=== PATIENT | male | born 1945 | race Caucasian/White ===

== ENCOUNTER → 2024-04-07 14:22 | Outpatient (REF) | payer MEDICARE, OTHER, SELFPAY | LOC: RAD 14:22 | PROVIDERS: ATTENDING PHYSICIAN Student in an Organized Health Care Education/Training Program; FAMILY PHYSICIAN Family Medicine | DX: M25.511 Pain in right shoulder (principal) | CPT/HCPCS: 73030 ==

== ENCOUNTER 2024-05-28 00:29 | Emergency (ER) | payer MEDICARE, OTHER, SELFPAY ==
[2024-05-28 00:39] VITALS: BP 147/82
[2024-05-28 00:54] LABS: COVID-19 Antigen Positive (Negative)
--- NOTE | 2024-05-28 01:11 | ED.GENMED ---
History of Present Illness
General
Chief Complaint: Cough
Source: patient and family
Exam Limitations: none
Time Seen by Provider: 05/28/24 01:02
Nursing documentation reviewed up to this point in time: agreed with
History of Present Illness
History of Present Illness:
78-year-old male presents with dry cough. It has been present for the last 2 days. He was at a family reunion just prior to the symptoms starting. Patient does have a history of bronchitis and states that this feels similar. Denies fever,
chills, nausea or vomiting. Denies chest pain.
Past History
Past History
ED Past Medical History: CAD, GERD, HTN, Hypercholesterolemia, [place], Renal failure (Renal insufficiency) and Other (Lumbar disc disease with sciatica, kidney stone)
ED Past Surgical History: Cardiac (Coronary artery bypass graft 1995, PTCA with stents , 2000, 2004, 2005), Orthopedic (Left knee surgery, cervical fusion March 2018) and Other (Mastectomy)
Social History
Tobacco: Former smoker
Alcohol: Daily
Drug: None
Personal:
Living: with family
Employment: Retired
Family History
Family History: Hypertension and CAD
Review of Systems
Review of Systems
Allergies reviewed?: Yes
Other source history: family
All Other Systems: ROS reviewed and negative except as documented in HPI and ROS
Constitutional: Reports no symptoms
EENT: Reports no symptoms
Respiratory: Reports cough; Denies trouble breathing
Cardiac: Reports no symptoms
ABD/GI: Reports no symptoms
: Reports no symptoms
Musculoskeletal: Reports no symptoms
Skin: Reports no symptoms
Neurological: Reports no symptoms
Endocrine: Reports no symptoms
Hematologic/Lymphatic: Reports no symptoms
Psychiatric: Reports no symptoms
Phy Exam
General Physical Exam
General Presentation: well appearing and mild distress
General age: appears stated age
General Skin: warm and dry
General Habitus: elderly
General Mental: alert and anxious
Cardiovascular Exam
Cardiovascular Exam: regular rate/rhythm and no edema
Pulmonary Exam
Pulmonary Exam: lungs clear and no respiratory distress
Cough: coarse cough and non productive cough
Neurological Exam
Neurological Exam: alert and oriented x3
Musculoskeletal Exam
Musculoskeletal Exam: full ROM and neuro vasc intact
Skin Exam
Skin Exam: normal color and warm/dry
Psychiatric Exam
Psychiatric Exam: normal mood/affect and anxious
Course
Orders/Labs/Results
Orders:
Orders
05/28/24 00:44
COVID-19 Antigen Urgent
Source: Nasal Swab
Influenza A+B Rapid Molecular Urgent
SACHIN Source: Nasal Swab
Specimen Description:
05/28/24 01:13
Benzonatate [Tessalon Perles] 100 mg PO NOW STA
05/28/24 01:14
CR Chest - 2 Views Urgent
Comment: Must be masked
Reason For Exam: COVID + cough
05/28/24 01:15
Nirmatrelvir/Ritonavir [Paxlovid 2X150 mg-100 mg Dose Pack] 1 dose PO NOW STA
Abnormal Lab Results
05/28/24
00:44
SARS-CoV-2 Antigen Positive A
(Negative)
Vital Signs
Initial and Last Documented VS:
Initial Vital Signs
Temp Pulse Resp BP Pulse Ox
98.4 F 95 16 147/82 99
05/28/24 00:39 05/28/24 00:39 05/28/24 00:39 05/28/24 00:39 05/28/24 00:39
Last Documented Vital Signs
Temp Pulse Resp BP Pulse Ox
98.4 F 95 16 147/82 99
05/28/24 00:39 05/28/24 00:39 05/28/24 00:39 05/28/24 00:39 05/28/24 00:39
*Critical Care Note
Total Time (30-74mins, 75-104mins- exclusive of procedures): Not Applicable
Update Note
Update Note:
From up-to-date: adults >=65 years old, regardless of vaccination status or other risk factors for severe disease. Those with multiple risk factors are likely to benefit more from treatment than those without because their risk of severe disease may
be higher. Nevertheless, advanced age alone is likely associated with a sufficiently high risk of progression to warrant [id number] therapy. Among healthy older individuals, we discuss the potential benefits and harms of [id number]
therapy and engage in shared decision making regarding whether to treat the individual.
Through shared decision making, patient will take the first dose of Paxlovid. Prescription sent to the pharmacy for the renal dose of the remainder. Patient will discuss with his PCP before ultimately taking the Paxlovid.
ED Attending Note
-
Portions of this chart may have been created with voice recognition software.� Occasional wrong word or��sound alike� substitutions may have occurred due to the inherent limitations of voice recognition software.
Discharge Plan
Departure
Patient Disposition: Home (Routine Discharge)
Date of Disposition: 05/28/24
Time of Disposition: 02:05
Patient with high blood pressure during this ER visit?: Yes
Condition: Good
Covid-19: Confirmed COVID-19
Discharge Problem:
COVID-19
Instructions: COVID-19 ED, BLOOD PRESSURE
Prescriptions:
New
Paxlovid 150-100 mg tablets,dose pack
See Rx Instructions .ROUTE .COMPLEX Qty: 20 0RF
Rx Instructions:
orally per package directions
benzonatate 100 mg capsule
100 mg PO Q6H Qty: 20 0RF
No Action
atenolol 25 MG tablet
25 mg PO HS
ezetimibe 10 MG tablet
10 mg PO DAILY
aspirin [Leni Low Dose Aspirin] 81 MG tablet,delayed release (DR/EC)
81 mg PO HS
gabapentin 300 MG capsule
600 mg PO HS
clopidogrel 75 MG tablet
75 mg PO DAILY Qty: 90 3RF
Patient Comments:
held since 02/22
nitroglycerin 0.4 MG tablet, sublingual
0.4 mg sublingual [id number] PRN (Reason: chest pain/sob) Qty: 25 1RF
eplerenone 25 MG tablet
25 mg PO DAILY
rosuvastatin 10 MG tablet
20 mg PO QPM
allopurinol 100 MG tablet
100 mg PO DAILY
famotidine 20 MG tablet
20 mg PO DAILY
acetaminophen 500 MG tablet
1,000 mg PO BID
fluticasone propionate 1 SPRAY spray,suspension
2 spray intranasal HS
oxycodone 5 MG tablet
5 mg PO PRN PRN (Reason: pain)
Patient Comments:
taken last 6 months ago per pt
oxycodone [OxyContin] 10 MG tablet,oral only,ext.rel.12 hr
10 mg PO DAILY PRN (Reason: pain)
Patient Comments:
taken last 6 months ago per pt
levomefolate--vitamins B12-B6 1 TAB tablet
1 tab PO BID
hydrochlorothiazide 12.5 MG tablet
12.5 mg PO DAILY
[id number] [[facility] Formula] 1 EACH capsule
1 ea PO DAILY
Cbd
1 cap PO QID
Cbd Tinture
75 ml PO BID
Sodium Citrate/Citric Acid
15 ml PO BID
oxycodone 5 MG tablet
5 mg PO Q4HPRN PRN (Reason: breakthrough/severe pain) Qty: 10 0RF
cephalexin 500 MG capsule
500 mg PO BID Qty: 13 0RF
Referrals:
Angelo Queen MD [Family Provider] -
Activity Restrictions/Additional Instructions:
Your prescriptions were sent electronically to the pharmacy that you specified. You received the prescription for the renal dose of Paxlovid
It was a pleasure meeting you and taking part in your care. We hope for your continued healing and wellness.
Please read discharge instructions in their entirety. However, they are for general education and may not describe your exact diagnosis at discharge. Information on your ER visit and medical conditions were discussed with you along with appropriate
follow up information...
If indicated, please take your medications as instructed and indicated on discharge paperwork.
Please schedule a follow up appointment as directed. Call to schedule an appointment
Please return to the emergency department with ANY change in, persisting, or worsening of symptoms. If any of your symptoms do not improve, or persist, or become more severe within 6-12 hours, please return to the emergency department for further
care.
Please return to the emergency department if you develop a headache, neck pain/stiffness, fever greater than 100.4F, chest pain, shortness of breath, persistent nausea, vomiting, slurred speech, difficulty walking, numbness/tingling, weakness, signs
of infection or any other symptoms that are worrisome to you.
If you have any questions or concerns please do not hesitate to call the Hospital at or E-mail me directly at [email or web address]
Interventions
Interventions:
*Risk Screen - Suicide Last Done: 05/28/24 00:39
*General Assessment Last Done: 05/28/24 00:39
*Neglect/Abuse Screening Last Done: 05/28/24 00:39
ED- Fall Risk Assessment Last Done: 05/28/24 01:49
*ED COVID-19 Vaccine History Last Done: 05/28/24 01:49
ED- Pulmonary Assessment Last Done: 05/28/24 01:49
Discharge Date and Time
Print Language: TURKMEN
[2024-05-28] MEDS: TESSALON PERLES 100 MG PO (01:39)
[2024-05-28] MEDS: PAXLOVID 2X150 MG-100 MG DOSE PACK 1 DOSE PO (01:39)
[2024-05-28 02:15] VITALS: BP 135/86
== END 2024-05-28 02:16 | disposition home or self-care (01) ==
LOC: EMR 00:29
PROVIDERS: EMERGENCY PHYSICIAN Student in an Organized Health Care Education/Training Program; FAMILY PHYSICIAN Family Medicine
DX: U07.1 COVID-19 (principal); R05.9 Cough, unspecified; Z11.52 Encounter for screening for COVID-19; I25.10 Atherosclerotic heart disease of native coronary artery without angina pectoris; I12.9 Hypertensive chronic kidney disease with stage 1 through stage 4 chronic kidney disease, or unspecified chronic kidney disease; N18.9 Chronic kidney disease, unspecified; E78.00 Pure hypercholesterolemia, unspecified; G62.9 Polyneuropathy, unspecified; N40.0 Benign prostatic hyperplasia without lower urinary tract symptoms; M19.90 Unspecified osteoarthritis, unspecified site; K57.90 Diverticulosis of intestine, part unspecified, without perforation or abscess without bleeding; K21.9 Gastro-esophageal reflux disease without esophagitis; K52.9 Noninfective gastroenteritis and colitis, unspecified; I25.2 Old myocardial infarction; Z85.828 Personal history of other malignant neoplasm of skin; Z87.891 Personal history of nicotine dependence; Z95.1 Presence of aortocoronary bypass graft; Z95.5 Presence of coronary angioplasty implant and graft; M43.22 Fusion of spine, cervical region; Z79.82 Long term (current) use of aspirin; Z88.1 Allergy status to other antibiotic agents; Z88.8 Allergy status to other drugs, medicaments and biological substances
CPT/HCPCS: 99283; 71046; 87502; 87811

== ENCOUNTER 2024-06-06 19:26 | Emergency (ER) | payer MEDICARE, OTHER, SELFPAY ==
[2024-06-06 19:27] VITALS: BP 155/75
--- NOTE | 2024-06-06 20:13 | ED.GENMED ---
History of Present Illness
General
Chief Complaint: Cold/Flu/URI Symptoms
Source: patient
Exam Limitations: none
Time Seen by Provider: 06/06/24 19:50
History of Present Illness
History of Present Illness:
This is a 79 year old male that comes in with c/o weakness and cough. States that he was diagnosed with COVID last Sunday. States that at dinner tonight he was cough and he started with chills. states that his fever was 102.7 with a forehead
thermometer. States that he did not sleep last night and that he was weak. States that he got up out of the chair but he felt weak. States that he has abd pain, nausea and vomited clear mucous. States that he has a headache with dizziness which he
says he has all the time. Denies any shaking chills, chest pain, SOB, diarrhea, urinary burning.
Past History
Past History
ED Past Medical History: CAD, Cancer (Skin CA), GERD, HTN, Hypercholesterolemia, [place] (X 2), Renal failure (Renal insufficiency) and Other (Lumbar disc disease with sciatica, kidney stone, Neuropathy, Colitis, Diverticulitis, Ulcers, Hemorrhoid C-diff)
ED Past Surgical History: Cardiac (Coronary artery bypass graft 1995, PTCA with stents X 12), Orthopedic (Left knee surgery X 3, cervical fusion March 2018), Urological (Stents X 2 kidneys, vasectomy) and Other (Mastectomy)
Social History
Tobacco: Former smoker
Alcohol: None
Drug: None
Personal:
Living: with family
Employment: Retired
Family History
Family History: Hypertension and CAD
Review of Systems
Review of Systems
All Other Systems: ROS reviewed and negative except as documented in HPI and ROS
Constitutional: Reports fever and chills
EENT: Reports no symptoms
Respiratory: Reports cough; Denies trouble breathing
Cardiac: Reports no symptoms; Denies chest pain
ABD/GI: Reports abdominal pain, nausea and vomiting; Denies diarrhea
: Reports no symptoms; Denies dysuria, frequency or urgency
Musculoskeletal: Reports no symptoms
Skin: Reports no symptoms
Neurological: Reports dizzy (Always) and headache
Psychiatric: Reports no symptoms
Phy Exam
General Physical Exam
General Presentation: no apparent distress
General age: appears stated age
General Skin: warm and dry
General Habitus: elderly
General Mental: alert
General Hydration: dry mucous membranes
ENT Exam
ENT Exam: TM's normal, pharynx normal and neck supple
Eye Exam
Eye Exam: EOMI
Cardiovascular Exam
Cardiovascular Exam: regular rate/rhythm, no edema, no murmur and normal peripheral pulses
Pulmonary Exam
Pulmonary Exam: no respiratory distress, chest non tender, no rhonchi, no wheezing and other (Dry cough noted, Fine crackles right base)
Gastrointestinal Exam
Gastrointestinal Exam: normal bowel sounds, soft, no organomegaly, no pulsatile mass, non distended and tender (Very slight right upper abd tenderness)
Musculoskeletal Exam
Musculoskeletal Exam: full ROM and no edema
Skin Exam
Skin Exam: normal color, warm/dry, no rash and no petechia
Psychiatric Exam
Psychiatric Exam: normal mood/affect
Course
Orders/Labs/Results
Orders:
Orders
06/06/24 20:04
CR Chest - 2 Views Urgent
Comment: COVID diagnosis last sunday
Reason For Exam: fever, cough
06/06/24 20:05
0.9% Sodium Chloride 1000 ml [Nss] 1,000 ml IV BOLUS
Acetaminophen with Codeine [Tylenol #3] 2 tablet PO NOW STA
Ketorolac [Toradol] 30 mg IV NOW STA
06/06/24 20:16
Ondansetron Injectable [Zofran] 4 mg IV NOW STA
06/06/24 20:22
Electrocardiogram (*1) Urgent
Reason for Study: Fatigue / Weakness
EKG- Treatment ONCE
06/06/24 20:34
Complete Blood Count/With Diff Urgent
Comprehensive Metabolic Panel Urgent
Abnormal Lab Results
06/06/24
20:34
MCH 32.3 H pg
(27.0-31.0)
Abs Immat Gran (auto) 0.1 H 10^3/uL
(0-0.05)
Absolute Neuts (auto) 8.1 H 10^3/uL
(1.4-6.5)
Absolute Lymphs (auto) 0.9 L 10^3/uL
(1.2-3.4)
Absolute Monos (auto) 1.4 H 10^3/uL
(0.1-0.6)
Immature Gran % 0.7 H %
(0-0.5)
Neutrophils % 76.7 H %
(42.2-75.2)
Lymphocytes % 8.1 L %
(20.5-51.1)
Monocytes % 12.9 H %
(1.7-9.3)
Sodium 130 L mmol/L
(135-145)
Chloride 95 L mmol/L
(98-107)
BUN 24 H mg/dl
(9-20)
Glucose 118 H mg/dl
(70-99)
06/06/24 20:34
06/06/24 20:34
Sodium slightly low. Chloride low. Dehydration. Glucose nonfasting.
Vital Signs
Initial and Last Documented VS:
Initial Vital Signs
Temp Pulse Resp BP Pulse Ox
99.8 F 86 18 155/75 94
06/06/24 19:27 06/06/24 19:27 06/06/24 19:27 06/06/24 19:27 06/06/24 19:27
Last Documented Vital Signs
Temp Pulse Resp BP Pulse Ox
99.8 F 86 18 155/75 93
06/06/24 19:27 06/06/24 19:27 06/06/24 19:27 06/06/24 19:27 06/06/24 21:00
MDM/Problems Addressed
Differential Diagnosis Includes:
COVID, PNA,
MDM/Problems Addressed:
This is a 79 year old male that comes in with c/o cough, fever and weakness. States that he was diagnosed with COVID last Sunday. States that he felt he was doing better and then he started with a fever again and this cough. Tonight he felt weak.
Will check labs. Give IV fluids, Tylenol with Codeint for cough and Toradol. Will also get chest x-ray.
Back into see patient. Explained that his blood work shows that his sodium is slightly low. Patient to only drink 6-8oz glasses of water. Chest x-ray shows a small Pneumonia. Will start on antibiotics and have patient follow up with the family
doctor. Will also give Prescription for Tylenol with Codeine as this will help the fever and cough. Patient to return with an concerns.
Chronic conditions affecting care:
NA
Acute Exacerbation and/or Progression of Chronic Illness:
NA
*Radiology
Radiology exam reviewed: radiology read reviewed (Chest-Patchy perencymal opacity within the left lower lobe lung, increased from chest radiograph of May 28, 2024, and suspicious for Pneumonia. No evidence for associated pleural effusion. )
*Pulse Oximetry
Patient hypoxic: no
*Cosmetic Surgeon Interpretation
Rate: Cosmetic Surgeon- N/A
*Critical Care Note
Total Time (30-74mins, 75-104mins- exclusive of procedures): Not Applicable
ED Attending Note
-
Portions of this chart may have been created with voice recognition software.� Occasional wrong word or��sound alike� substitutions may have occurred due to the inherent limitations of voice recognition software.
Discharge Plan
Departure
Patient Disposition: Home (Routine Discharge)
Date of Disposition: 06/06/24
Time of Disposition: 22:38
Patient with high blood pressure during this ER visit?: Yes
Condition: Good
Covid-19: Not Applicable
Discharge Problem:
Pneumonia involving left lung
Instructions: Pneumonia in adults, BLOOD PRESSURE
Prescriptions:
New
doxycycline hyclate 100 mg capsule
100 mg PO BID Qty: 19 0RF
acetaminophen-codeine 300-30 mg tablet
1 tab PO Q6H PRN (Reason: Fever, cough) Qty: 12 0RF
No Action
atenolol 25 MG tablet
25 mg PO HS
ezetimibe 10 MG tablet
10 mg PO DAILY
aspirin [Leni Low Dose Aspirin] 81 MG tablet,delayed release (DR/EC)
81 mg PO HS
gabapentin 300 MG capsule
600 mg PO HS
clopidogrel 75 MG tablet
75 mg PO DAILY Qty: 90 3RF
Patient Comments:
held since 02/22
nitroglycerin 0.4 MG tablet, sublingual
0.4 mg sublingual [id number] PRN (Reason: chest pain/sob) Qty: 25 1RF
eplerenone 25 MG tablet
25 mg PO DAILY
rosuvastatin 10 MG tablet
20 mg PO QPM
allopurinol 100 MG tablet
100 mg PO DAILY
famotidine 20 MG tablet
20 mg PO DAILY
acetaminophen 500 MG tablet
1,000 mg PO BID
fluticasone propionate 1 SPRAY spray,suspension
2 spray intranasal HS
oxycodone 5 MG tablet
5 mg PO PRN PRN (Reason: pain)
Patient Comments:
taken last 6 months ago per pt
oxycodone [OxyContin] 10 MG tablet,oral only,ext.rel.12 hr
10 mg PO DAILY PRN (Reason: pain)
Patient Comments:
taken last 6 months ago per pt
levomefolate--vitamins B12-B6 1 TAB tablet
1 tab PO BID
hydrochlorothiazide 12.5 MG tablet
12.5 mg PO DAILY
[id number] [[facility] Formula] 1 EACH capsule
1 ea PO DAILY
Cbd
1 cap PO QID
Cbd Tinture
75 ml PO BID
Sodium Citrate/Citric Acid
15 ml PO BID
oxycodone 5 MG tablet
5 mg PO Q4HPRN PRN (Reason: breakthrough/severe pain) Qty: 10 0RF
cephalexin 500 MG capsule
500 mg PO BID Qty: 13 0RF
Paxlovid 150-100 mg tablets,dose pack
See Rx Instructions .ROUTE .COMPLEX Qty: 20 0RF
Rx Instructions:
orally per package directions
benzonatate 100 mg capsule
100 mg PO Q6H Qty: 20 0RF
Referrals:
Angelo Queen MD [Family Provider] - Follow up in 2-3 days
Activity Restrictions/Additional Instructions:
As discussed, your blood work shows that your Sodium is a little low. Please try eating some canned soup or boxed food. Your Chest x-ray shows a very small left lower lobe pneumonia. You have had your first dose of antibiotic here and a prescription
has been sent to your Pharmacy. You also has a prescription for Tylenol with Codeine sent to your pharmacy. This will help the fever and the cough. Follow up with the family doctor for recheck. IF YOU HAVE INCREASED SHORTNESS OR BREATH, OR YOU HAVE
ANY OTHER CONCERNS PLEASE RETURN TO THE EMERGENCY ROOM
Discharge Date and Time
Print Language: DIVEHI
[2024-06-06] MEDS: NSS 1000 IV (20:31)
[2024-06-06] MEDS: TORADOL 30 MG IV (20:32)
[2024-06-06] MEDS: TYLENOL #3 2 TABLET PO (20:32)
[2024-06-06] MEDS: ZOFRAN 4 MG IV (20:37)
[2024-06-06 20:42] LABS: % Basophils 0.2 % (0-2); % Eosinophils 1.4 % (0-6); % Immature Granulocytes 0.7 % (0-0.5); % Lymphocytes 8.1 % (20.5-51.1); % Monocytes 12.9 % (1.7-9.3); % Neutrophils 76.7 % (42.2-75.2); Absolute Eosinophils 0.2 10^3/uL (0-0.7); Absolute Immature Granulocytes 0.1 10^3/uL (0-0.05); Absolute Lymphocytes 0.9 10^3/uL (1.2-3.4); Absolute Monocytes 1.4 10^3/uL (0.1-0.6); Absolute Neutrophils 8.1 10^3/uL (1.4-6.5); Hematocrit 43.3 % (39.0-52.0); Hemoglobin 15.9 g/dL (13.0-18.0); Mean Corp Hgb Conc. 36.7 g/dL (33.0-37.0); Mean Corpuscular Hgb 32.3 pg (27.0-31.0); Mean Corpuscular Volume 87.8 fL (80.0-94.0); Mean Platelet Volume 9.8 fL (7.4-10.4); Nucleated Red Blood Cells % 0 % (-); Platelet Count 180 10^3/uL (130-400); Red Blood Cell Count 4.93 10^6/uL (4.70-6.10); Red Cell Dist. Width 12.6 % (11.5-14.5); White Blood Cell Count 10.6 10^3/uL (4.8-10.8)
[2024-06-06 20:55] LABS: ALT (SGPT) 41 U/L (0-50); AST (SGOT) 33 U/L (17-59); Albumin 3.9 g/dl (3.5-5.0); Alkaline Phosphatase 78 U/L (38-126); Blood Urea Nitrogen 24 mg/dl (9-20); Calcium 9.2 mg/dl (8.4-10.2); Carbon Dioxide 25 mmol/L (22-30); Chloride 95 mmol/L (98-107); Glucose 118 mg/dl (70-99); Potassium 3.8 mmol/L (3.5-5.1); Sodium 130 mmol/L (135-145); Total Bilirubin 0.9 mg/dl (0.2-1.3); Total Protein 6.7 g/dl (6.3-8.2); eGFR > 60.00
[2024-06-06 21:00] VITALS: BP 127/61
[2024-06-06] MEDS: VIBRAMYCIN 100 MG PO (22:53)
[2024-06-06 23:00] VITALS: BP 99/65
== END 2024-06-06 23:01 | disposition home or self-care (01) ==
LOC: EMR 19:26
PROVIDERS: Clinical Nurse Specialist Family Health; EMERGENCY PHYSICIAN Emergency Medicine; FAMILY PHYSICIAN Family Medicine
DX: J18.9 Pneumonia, unspecified organism (principal); I10 Essential (primary) hypertension; Z87.891 Personal history of nicotine dependence
CPT/HCPCS: 99284; 96374; 96375; 96361; 71046; 80053; 85025

== ENCOUNTER → 2024-07-22 08:48 | Outpatient (REF) | payer MEDICARE, OTHER, SELFPAY ==
[2024-07-22 11:15] LABS: Blood Urea Nitrogen 16 mg/dl (9-20); Calcium 9.8 mg/dl (8.4-10.2); Carbon Dioxide 29 mmol/L (22-30); Chloride 101 mmol/L (98-107); Glucose 113 mg/dl (70-99); Potassium 4.3 mmol/L (3.5-5.1); Sodium 142 mmol/L (135-145); eGFR > 60.00
== END ==
LOC: REG 08:48
PROVIDERS: ATTENDING PHYSICIAN Specialist; FAMILY PHYSICIAN Family Medicine
DX: E87.1 Hypo-osmolality and hyponatremia (principal)
CPT/HCPCS: 36415; 80048; 84550

== ENCOUNTER → 2024-08-14 10:58 | Outpatient (REF) | payer MEDICARE, OTHER, SELFPAY | LOC: RCS 10:58 | PROVIDERS: ATTENDING PHYSICIAN Internal Medicine; FAMILY PHYSICIAN Family Medicine | DX: I25.10 Atherosclerotic heart disease of native coronary artery without angina pectoris (principal); I77.810 Thoracic aortic ectasia; I25.810 Atherosclerosis of coronary artery bypass graft(s) without angina pectoris | CPT/HCPCS: 93306 ==

== ENCOUNTER → 2024-09-20 10:38 | Outpatient (REF) | payer MEDICARE, OTHER, SELFPAY | LOC: RAD 10:38 | PROVIDERS: ATTENDING PHYSICIAN Internal Medicine; FAMILY PHYSICIAN Family Medicine | DX: I25.10 Atherosclerotic heart disease of native coronary artery without angina pectoris (principal); I25.810 Atherosclerosis of coronary artery bypass graft(s) without angina pectoris; I70.1 Atherosclerosis of renal artery | CPT/HCPCS: 93880 ==

== ENCOUNTER → 2024-09-23 08:50 | Outpatient (REF) | payer MEDICARE, OTHER, SELFPAY | LOC: HWRAD 08:50 | PROVIDERS: ATTENDING PHYSICIAN Physician Assistant Medical; FAMILY PHYSICIAN Family Medicine | DX: R42 Dizziness and giddiness (principal); G44.52 New daily persistent headache (NDPH) | CPT/HCPCS: 70450 ==

== ENCOUNTER 2024-10-20 14:09 | Emergency (ER) | payer MEDICARE, OTHER, SELFPAY ==
--- NOTE | 2024-10-20 14:13 | ED.GENMED ---
ED Provider Triage
<Elroy Joy Jr., PA-C - Last Filed: 10/20/24 14:20>
-
Patient seen by provider in Triage?: Seen in Triage
Attestation: A medical screening examination has been initiated by a qualified medical provider. Based on the assessment performed at this time, it has been determined that an emergent medical condition may exist and the patient has been informed
that further medical evaluation and possible additional diagnostic testing may be needed.
HPI: 79-year-old male presenting to the emergency department after ground-level fall hitting his shoulder and also his forehead. Patient is on Plavix. CT scan ordered as well as x-ray to his left shoulder. Patient in significant discomfort
during initial assessment IV pain medication was ordered as well pending a room for administration.
GENERAL: Alert , in no apparent distress
EYE: No visual abnormalities.
NECK: Trachea midline
ENT: No visible abnormalities.
LUNGS: No acute respiratory distress
NEUROLOGICAL: Alert and oriented
SKIN: Skin intact. No visible changes.
MUSCULOSKELETAL: Not able to move the left shoulder good study assistant strength of the left hand normal distal pulses normal movement of the lower extremities and right side.
PSYCH: Normal and appropriate interaction.
This is a medical evaluation conducted in person to initiate diagnostic evaluation and provide initial therapeutics. Please see further documentation by the treating clinician.
History of Present Illness
<Elroy Joy Jr., PA-C - Last Filed: 10/20/24 14:20>
General
Chief Complaint: Fall
Time Seen by Provider: 10/20/24 14:33
<Junior Guerra PA-C - Last Filed: 10/20/24 16:24>
General
Source: patient
Exam Limitations: none
History of Present Illness
History of Present Illness:
79-year-old male on aspirin and Plavix presents after a fall he sustained today. He got going downhill got his head of himself and can catch up and fell with his left arm out. He complains of left shoulder pain. He also struck his head on the
ground. No loss of conscious. He notes the pain in the shoulder is severe. Pain does not radiate to the elbow no associated numbness. No chest pain or shortness of breath. No other complaints
Past History
<Elroy Joy Jr., PA-C - Last Filed: 10/20/24 14:20>
Past History
ED Past Medical History: CAD, Cancer (Skin CA), GERD, HTN, Hypercholesterolemia, CA (X 2), Renal failure (Renal insufficiency) and Other (Lumbar disc disease with sciatica, kidney stone, Neuropathy, Colitis, Diverticulitis, Ulcers, Hemorrhoid C-diff)
ED Past Surgical History: Cardiac (Coronary artery bypass graft 1995, PTCA with stents X 12), Orthopedic (Left knee surgery X 3, cervical fusion March 2018), Urological (Stents X 2 kidneys, vasectomy) and Other (Mastectomy)
Social History
Tobacco: Former smoker
Alcohol: None
Drug: None
Personal:
Living: with family
Employment: Retired
Family History
Family History: Hypertension and CAD
Phy Exam
<Junior Guerra PA-C - Last Filed: 10/20/24 16:24>
Physical Exam
Physical Exam:
General: Well-appearing male no acute respiratory distress
HEENT: Normocephalic abrasion noted to the forehead pupils equal round reactive to light
Heart: Regular rate and rhythm no murmur
Lungs: Clear no wheeze
Musculoskeletal exam: Left shoulder in a sling but tender over the lateral aspect of the shoulder. There is soft tissue swelling. No obvious deformity. The elbow is nontender the spine is nontender
Neurologic exam: Good sensation left arm alert and oriented
Course
<Elroy Joy Jr., PA-C - Last Filed: 10/20/24 14:20>
Orders/Labs/Results
Orders:
Orders
10/20/24 14:12
CR Shoulder, Trauma - Left Urgent
Comment:
Reason For Exam: shoulder pain after fall
10/20/24 14:16
CT Head W/o Iv Contrast Urgent
Comment:
Reason For Exam: fall hit foreheadd
Morphine Sulfate 4 mg IV NOW STA
10/20/24 14:44
HYDROmorphone [Dilaudid] 0.5 mg IV NOW STA
Ondansetron Injectable [Zofran] 4 mg IV NOW STA
Vital Signs
Initial and Last Documented VS:
Initial Vital Signs
Temp Pulse Resp BP
97.3 F 69 20 140/74
10/20/24 14:14 10/20/24 14:14 10/20/24 14:14 10/20/24 14:14
Last Documented Vital Signs
Temp Pulse Resp BP
97.3 F 69 20 140/74
10/20/24 14:14 10/20/24 14:14 10/20/24 14:14 10/20/24 14:14
<Junior Guerra PA-C - Last Filed: 10/20/24 16:24>
Orders/Labs/Results
Orders:
Orders
10/20/24 14:12
CR Shoulder, Trauma - Left Urgent
Comment:
Reason For Exam: shoulder pain after fall
10/20/24 14:16
CT Head W/o Iv Contrast Urgent
Comment:
Reason For Exam: fall hit foreheadd
Morphine Sulfate 4 mg IV NOW STA
10/20/24 14:44
HYDROmorphone [Dilaudid] 0.5 mg IV NOW STA
Ondansetron Injectable [Zofran] 4 mg IV NOW STA
Vital Signs
Initial and Last Documented VS:
Initial Vital Signs
Temp Pulse Resp BP
97.3 F 69 20 140/74
10/20/24 14:14 10/20/24 14:14 10/20/24 14:14 10/20/24 14:14
Last Documented Vital Signs
Temp Pulse Resp BP
97.3 F 69 20 140/74
10/20/24 14:14 10/20/24 14:14 10/20/24 14:14 10/20/24 14:14
<Junior Guerra PA-C - Last Filed: 10/20/24 16:24>
MDM/Problems Addressed
Differential Diagnosis Includes:
Mechanical fall with left shoulder pain and head strike. X-rays left shoulder pending CT head pending. He was given morphine through triage however he is still in severe pain. Will add Dilaudid and Zofran. Differential could include shoulder
fracture versus dislocation versus both versus strain. Also evaluating for intracranial injury
<Junior Guerra PA-C - Last Filed: 10/20/24 16:24>
*Critical Care Note
Total Time (30-74mins, 75-104mins- exclusive of procedures): Not Applicable
<Junior Guerra PA-C - Last Filed: 10/20/24 16:24>
Update Note
Update Note:
X-ray left shoulder demonstrates impacted humeral neck fracture. CT of the head was negative. Patient eager to go home. Will prescribe pain medicine at home. Will advise she follow-up with orthopedics
ED Attending Note
<Elroy Joy Jr., PA-C - Last Filed: 10/20/24 14:20>
-
Portions of this chart may have been created with voice recognition software.� Occasional wrong word or��sound alike� substitutions may have occurred due to the inherent limitations of voice recognition software.
Discharge Plan
Departure
Patient Disposition: Home (Routine Discharge)
Date of Disposition: 10/20/24
Time of Disposition: 16:17
Patient with high blood pressure during this ER visit?: No
Discharge Problem:
Fracture of neck of humerus
Instructions: Muscle, joint, and bone pain - Discharge instructions
Prescriptions:
New
oxycodone-acetaminophen [Percocet] 5-325 mg tablet
1 tab PO TID PRN (Reason: Pain) Qty: 10 0RF
No Action
atenolol 25 MG tablet
25 mg PO HS
ezetimibe 10 MG tablet
10 mg PO DAILY
aspirin [Leni Low Dose Aspirin] 81 MG tablet,delayed release (DR/EC)
81 mg PO HS
gabapentin 300 MG capsule
600 mg PO HS
clopidogrel 75 MG tablet
75 mg PO DAILY Qty: 90 3RF
Patient Comments:
held since 02/22
nitroglycerin 0.4 MG tablet, sublingual
0.4 mg sublingual [id number] PRN (Reason: chest pain/sob) Qty: 25 1RF
eplerenone 25 MG tablet
25 mg PO DAILY
rosuvastatin 10 MG tablet
20 mg PO QPM
allopurinol 100 MG tablet
100 mg PO DAILY
famotidine 20 MG tablet
20 mg PO DAILY
acetaminophen 500 MG tablet
1,000 mg PO BID
fluticasone propionate 1 SPRAY spray,suspension
2 spray intranasal HS
oxycodone 5 MG tablet
5 mg PO PRN PRN (Reason: pain)
Patient Comments:
taken last 6 months ago per pt
oxycodone [OxyContin] 10 MG tablet,oral only,ext.rel.12 hr
10 mg PO DAILY PRN (Reason: pain)
Patient Comments:
taken last 6 months ago per pt
levomefolate--vitamins B12-B6 1 TAB tablet
1 tab PO BID
hydrochlorothiazide 12.5 MG tablet
12.5 mg PO DAILY
[id number] [[facility] Health Formula] 1 EACH capsule
1 ea PO DAILY
Cbd
1 cap PO QID
Cbd Tinture
75 ml PO BID
Sodium Citrate/Citric Acid
15 ml PO BID
oxycodone 5 MG tablet
5 mg PO Q4HPRN PRN (Reason: breakthrough/severe pain) Qty: 10 0RF
cephalexin 500 MG capsule
500 mg PO BID Qty: 13 0RF
Paxlovid 150-100 mg tablets,dose pack
See Rx Instructions .ROUTE .COMPLEX Qty: 20 0RF
Rx Instructions:
orally per package directions
benzonatate 100 mg capsule
100 mg PO Q6H Qty: 20 0RF
doxycycline hyclate 100 mg capsule
100 mg PO BID Qty: 19 0RF
acetaminophen-codeine 300-30 mg tablet
1 tab PO Q6H PRN (Reason: Fever, cough) Qty: 12 0RF
Referrals:
Michelle Romo MD [Family Provider] -
Chava Red MD [Active] -
Activity Restrictions/Additional Instructions:
Take pain medicine as needed for severe pain. Use sling for comfort. Follow-up with orthopedics. Return if worse otherwise
Interventions
Interventions:
*Risk Screen - Suicide Last Done: 10/20/24 14:43
*General Assessment Last Done: 10/20/24 14:43
*Neglect/Abuse Screening Last Done: 10/20/24 14:45
*ED COVID-19 Vaccine History Last Done: 10/20/24 14:43
ED-Musculoskeletal Assessment Last Done: 10/20/24 15:09
ED- Neurological Assessment Last Done: 10/20/24 15:09
ED-Skin Assessment Last Done: 10/20/24 15:09
Discharge Date and Time
Print Language: FIJIAN
[2024-10-20 14:14] VITALS: BP 140/74
[2024-10-20] MEDS: MORPHINE SULFATE 4 MG IV (14:32)
[2024-10-20 14:43] VITALS: BMI 23.9
[2024-10-20] MEDS: DILAUDID 0.5 MG IV ×2 (14:49→16:48)
[2024-10-20] MEDS: ZOFRAN 4 MG IV (14:49)
[2024-10-20] MEDS: VALIUM INJECTION 2 MG IV (16:48)
[2024-10-20 17:21] VITALS: BP 143/78
== END 2024-10-20 17:23 | disposition home or self-care (01) ==
LOC: EMR 14:09
PROVIDERS: EMERGENCY PHYSICIAN Emergency Medicine; FAMILY PHYSICIAN Family Medicine
DX: S42.213A Unspecified displaced fracture of surgical neck of unspecified humerus, initial encounter for closed fracture (principal); W18.30XA Fall on same level, unspecified, initial encounter; I25.10 Atherosclerotic heart disease of native coronary artery without angina pectoris; K21.9 Gastro-esophageal reflux disease without esophagitis; I10 Essential (primary) hypertension; E78.00 Pure hypercholesterolemia, unspecified; I25.2 Old myocardial infarction; Z79.02 Long term (current) use of antithrombotics/antiplatelets; Z82.49 Family history of ischemic heart disease and other diseases of the circulatory system; Z85.828 Personal history of other malignant neoplasm of skin; Z87.19 Personal history of other diseases of the digestive system; Z87.442 Personal history of urinary calculi; Z87.891 Personal history of nicotine dependence; Z95.1 Presence of aortocoronary bypass graft; Z95.5 Presence of coronary angioplasty implant and graft
CPT/HCPCS: 99284; 96374; 96375; 96376; 70450; 73030

== ENCOUNTER 2024-10-23 17:20 | Inpatient (IN) | payer MEDICARE, OTHER, SELFPAY ==
[2024-10-23 13:39] VITALS: BP 188/108
--- NOTE | 2024-10-23 14:51 | ED.GENMED ---
History of Present Illness
General
Chief Complaint: Musculo-Skeletal Complaint
Source: patient
Time Seen by Provider: 10/23/24 14:38
History of Present Illness
History of Present Illness:
79-year-old male with past medical history of coronary artery disease status postcoronary stenting, hypertension, hyperlipidemia, GERD, gastric ulcer, previous C. difficile infection presenting back to the emergency department after being seen here
3 days ago where he was diagnosed with a left impacted humerus fracture due to continued and worsening pain despite home medications. Patient is having visiting nurse come to the house who states that patient has been having a very difficult time
with activities of daily living and uncontrolled pain despite oral medication. Patient has been without fevers. Family is currently present who states that patient was at the orthopedic doctors office yesterday for both left shoulder and left knee
status post left knee Synvisc injection and also reporting left knee pain but no fevers or infectious symptoms. also notes that earlier today patient had been complaining of some right sided hip pain but patient is denying this pain currently.
Past History
Past History
ED Past Medical History: CAD, Cancer (Skin CA), GERD, HTN, Hypercholesterolemia, AR (X 2), Renal failure (Renal insufficiency) and Other (Lumbar disc disease with sciatica, kidney stone, Neuropathy, Colitis, Diverticulitis, Ulcers, Hemorrhoid C-diff)
ED Past Surgical History: Cardiac (Coronary artery bypass graft 1995, PTCA with stents X 12), Orthopedic (Left knee surgery X 3, cervical fusion March 2018), Urological (Stents X 2 kidneys, vasectomy) and Other (Mastectomy)
Social History
Tobacco: Former smoker
Alcohol: None
Drug: None
Personal:
Living: with family
Employment: Retired
Family History
Family History: Hypertension and CAD
Review of Systems
Review of Systems
All Other Systems: ROS reviewed and negative except as documented in HPI and ROS
Phy Exam
Physical Exam
Physical Exam:
GENERAL: Sleepy but arousable, appears in pain with any attempted movement
HEAD: NCAT
EYE: clear conjunctiva
NECK: Supple
ENT: o/p clr, mmm.
CARDIAC: Regular rate and rhythm .
LUNGS: Clear breath sounds bilaterally, no acute respiratory distress, no wheezes/rales/rhonchi
NEUROLOGICAL: Alert and oriented
SKIN: Warm and dry, skin intact.
MUSCULOSKELETAL: LUE: sling in place. Easily palpable radial pulse, CR < 2 sec. Significant pain with any attempted ROM at left shoulder. No focal ttp to right hip. Allows for ROM at right hip. Left knee with moderate joint effusion and ttp. No
erythema. Allows for ROM but does have pain
PSYCH: Normal and appropriate interaction.
Scores
Heart Failure Risk
Heart Failure Risk Score: Not Applicable
Heart Score for Chest Pain Patients
STEMI patient?: Not applicable
Withdrawal Assessment of Alcohol
Withdrawal Assessment Completed?: Not applicable
Course
Orders/Labs/Results
Orders:
Orders
10/23/24 14:46
HYDROmorphone [Dilaudid] 0.5 mg IV NOW STA
CR Hip - RT w/wo Pel 2-3 Vw* Urgent
Comment:
Reason For Exam: fall, pain
Include a pelvis x-ray?: Yes
10/23/24 14:59
Basic Metabolic Panel Urgent
Complete Blood Count/With Diff Urgent
10/23/24 15:00
Case Management Consult ONCE
Case Management Consult: Discharge Planning
Comment: SNF
10/23/24 15:35
0.9% Sodium Chloride 1000 ml [Nss] 1,000 ml IV BOLUS
10/23/24 16:19
Urinalysis Reflex To Culture Urgent
Date Specimen was Collected: 10/23/24
Time Specimen was Collected: 16:25
Abnormal Lab Results
10/23/24
14:59
WBC 11.4 H 10^3/uL
(4.8-10.8)
RBC 3.53 L 10^6/uL
(4.70-6.10)
Hgb 11.5 L g/dL
(13.0-18.0)
Hct 32.9 L %
(39.0-52.0)
MCH 32.6 H pg
(27.0-31.0)
Abs Immat Gran (auto) 0.1 H 10^3/uL
(0-0.05)
Absolute Neuts (auto) 8.9 H 10^3/uL
(1.4-6.5)
Absolute Lymphs (auto) 0.7 L 10^3/uL
(1.2-3.4)
Absolute Monos (auto) 1.7 H 10^3/uL
(0.1-0.6)
Neutrophils % 78.8 H %
(42.2-75.2)
Lymphocytes % 5.9 L %
(20.5-51.1)
Monocytes % 14.6 H %
(1.7-9.3)
Sodium 126 L mmol/L
(135-145)
Chloride 89 L mmol/L
(98-107)
BUN 46 H mg/dl
(9-20)
Creatinine 1.6 H mg/dL
(0.7-1.3)
Glucose 136 H mg/dl
(70-99)
10/23/24 14:59
10/23/24 14:59
Vital Signs
Initial and Last Documented VS:
Initial Vital Signs
Temp Pulse Resp BP Pulse Ox
98.4 F 68 18 188/108 98
10/23/24 13:39 10/23/24 13:39 10/23/24 13:39 10/23/24 13:39 10/23/24 13:39
Last Documented Vital Signs
Temp Pulse Resp BP Pulse Ox
98.4 F 68 18 188/108 98
10/23/24 13:39 10/23/24 13:39 10/23/24 13:39 10/23/24 13:39 10/23/24 13:39
MDM/Problems Addressed
Differential Diagnosis Includes:
Intractable pain from fracture, right hip/pelvic fracture, left knee joint effusion, no signs to suggest septic joint
MDM/Problems Addressed:
79-year-old male presenting back to the emergency department for evaluation of left shoulder pain secondary to recent impacted humeral head fracture. Secondary concern of left knee pain that has been an ongoing issue. noticed patient
complaining of right hip pain today but has been ambulating. Patient did well with Dilaudid while here. Will treat with this. Family does not feel patient can be sent back home due to continued pain and difficulty caring for him. Will order case
management consult as patient will likely need short-term rehab/SNF.
*Pulse Oximetry
Patient hypoxic: no
*Critical Care Note
Total Time (30-74mins, 75-104mins- exclusive of procedures): Not Applicable
Data Reviewed
Review of Other/Old Records Reveals: Records and Radiology Studies
Patient Management
Discussion with other providers: Hospitalist
Escalation/DeEscalation of care consider admission/obs:
Patient remains sleepy although arousable to voice. Labs reveal a mild leukocytosis, VIJAY, and hyponatremia. Given the lab abnormalities I feel it would be in patients best interest for admission and trending of Na+ and creatinine. 1L NSS IVF
ordered. Hospitalist accepts. Patient will likely need rehab/SNF
ED Attending Note
-
Portions of this chart may have been created with voice recognition software.� Occasional wrong word or��sound alike� substitutions may have occurred due to the inherent limitations of voice recognition software.
Discharge Plan
Departure
Patient Disposition: Admit
Date of Disposition: 10/23/24
Time of Disposition: 16:18
Presentation/result/management discussed w/ accepting MD/DO: Hospitalist
Discharge Problem:
VIJAY (acute kidney injury), Hyponatremia, Closed left humeral fracture
Prescriptions:
No Action
atenolol 25 MG tablet
25 mg PO HS
ezetimibe 10 MG tablet
10 mg PO DAILY
aspirin [Leni Low Dose Aspirin] 81 MG tablet,delayed release (DR/EC)
81 mg PO HS
gabapentin 300 MG capsule
600 mg PO HS
clopidogrel 75 MG tablet
75 mg PO DAILY Qty: 90 3RF
Patient Comments:
held since 02/22
nitroglycerin 0.4 MG tablet, sublingual
0.4 mg sublingual [id number] PRN (Reason: chest pain/sob) Qty: 25 1RF
eplerenone 25 MG tablet
25 mg PO DAILY
rosuvastatin 10 MG tablet
20 mg PO QPM
allopurinol 100 MG tablet
100 mg PO DAILY
famotidine 20 MG tablet
20 mg PO DAILY
acetaminophen 500 MG tablet
1,000 mg PO BID
fluticasone propionate 1 SPRAY spray,suspension
2 spray intranasal HS
oxycodone 5 MG tablet
5 mg PO PRN PRN (Reason: pain)
Patient Comments:
taken last 6 months ago per pt
oxycodone [OxyContin] 10 MG tablet,oral only,ext.rel.12 hr
10 mg PO DAILY PRN (Reason: pain)
Patient Comments:
taken last 6 months ago per pt
levomefolate--vitamins B12-B6 1 TAB tablet
1 tab PO BID
hydrochlorothiazide 12.5 MG tablet
12.5 mg PO DAILY
[id number] [Macular Health Formula] 1 EACH capsule
1 ea PO DAILY
Cbd
1 cap PO QID
Cbd Tinture
75 ml PO BID
Sodium Citrate/Citric Acid
15 ml PO BID
oxycodone 5 MG tablet
5 mg PO Q4HPRN PRN (Reason: breakthrough/severe pain) Qty: 10 0RF
cephalexin 500 MG capsule
500 mg PO BID Qty: 13 0RF
Paxlovid 150-100 mg tablets,dose pack
See Rx Instructions .ROUTE .COMPLEX Qty: 20 0RF
Rx Instructions:
orally per package directions
benzonatate 100 mg capsule
100 mg PO Q6H Qty: 20 0RF
doxycycline hyclate 100 mg capsule
100 mg PO BID Qty: 19 0RF
acetaminophen-codeine 300-30 mg tablet
1 tab PO Q6H PRN (Reason: Fever, cough) Qty: 12 0RF
oxycodone-acetaminophen [Percocet] 5-325 mg tablet
1 tab PO TID PRN (Reason: Pain) Qty: 10 0RF
oxycodone 5 mg tablet
5 mg PO TID PRN (Reason: Pain) Qty: 10 0RF
diazepam [Valium] 5 mg tablet
5 mg PO TID PRN (Reason: spasm) Qty: 10 0RF
Referrals:
Michelle Romo MD [Family Provider] -
Interventions
Interventions:
*Risk Screen - Suicide Last Done: 10/23/24 13:39
*General Assessment Last Done: 10/23/24 13:39
*Neglect/Abuse Screening Last Done: 10/23/24 13:39
ED- Fall Risk Assessment Last Done: 10/23/24 15:08
ED-Musculoskeletal Assessment Last Done: 10/23/24 15:08
Discharge Date and Time
Print Language: KITTITIAN
[2024-10-23 15:19] LABS: % Basophils 0.1 % (0-2); % Eosinophils 0.1 % (0-6); % Immature Granulocytes 0.5 % (0-0.5); % Lymphocytes 5.9 % (20.5-51.1); % Monocytes 14.6 % (1.7-9.3); % Neutrophils 78.8 % (42.2-75.2); Absolute Immature Granulocytes 0.1 10^3/uL (0-0.05); Absolute Lymphocytes 0.7 10^3/uL (1.2-3.4); Absolute Monocytes 1.7 10^3/uL (0.1-0.6); Absolute Neutrophils 8.9 10^3/uL (1.4-6.5); Hematocrit 32.9 % (39.0-52.0); Hemoglobin 11.5 g/dL (13.0-18.0); Mean Corpuscular Hgb 32.6 pg (27.0-31.0); Mean Corpuscular Volume 93.2 fL (80.0-94.0); Mean Platelet Volume 10.4 fL (7.4-10.4); Nucleated Red Blood Cells % 0 % (-); Platelet Count 139 10^3/uL (130-400); Red Blood Cell Count 3.53 10^6/uL (4.70-6.10); Red Cell Dist. Width 11.8 % (11.5-14.5); White Blood Cell Count 11.4 10^3/uL (4.8-10.8)
[2024-10-23 15:31] LABS: Blood Urea Nitrogen 46 mg/dl (9-20); Calcium 8.8 mg/dl (8.4-10.2); Carbon Dioxide 27 mmol/L (22-30); Chloride 89 mmol/L (98-107); Glucose 136 mg/dl (70-99); Potassium 4.1 mmol/L (3.5-5.1); Sodium 126 mmol/L (135-145); eGFR 43.83
[2024-10-23] MEDS: NSS 1000 IV ×2 (15:51→21:59)
--- NOTE | 2024-10-23 16:26 | HPS.HSE ---
Family Physician
-
Family Physician: Michelle Romo MD
Chief Complaint
-
increased pain and confusion
History of Present Illness
Patient is a 79-year-old male wih past medical history significant for CAD, GERD, HTN, Hypercholesterolemia, ID x2, and renal insufficiency who presented to [facility] ED for evaluation of increased pain, confusion and dehydration. Patient with
recent fall and impacted fracture, neck/head, proximal left humerus. Seen yesterday at ortho where states he appeared to be at baseline and today he had increase in pain and confusion. Patient yesterday received right knee injection and
states it has increased in size since yesterday. No fevers or chills reported.
Medical History
Past Medical History
Past Medical History: Reports Other
Additional Past Medical History:
CAD
GERD
HTN
Hypercholesterolemia
ID x2
Renal insufficiency
Lumbar disc disease with sciatica
kidney stone
Neuropathy
Colitis
Diverticulitis
Ulcers
skin cancer
Hemorrhoid
C-diff
Past Surgical History: Reports Other
Additional Past Surgical History:
CABG
PTCA
left knee
cervical fusion
renal stents
vasectomy
mastectomy
Social History
Tobacco: Former Smoker
Alcohol: Former
Personal:
Living: With Family
Employment: Retired
Family History
Family History: Not pertinent
Allergies / Home Medications
Allergies reflects when Allergies were last updated in [employer].
Home Medications with original date entered in [employer]
Allergy/Medication List:
Allergies
Allergy/AdvReac Type Severity Reaction Status Date / Time
atorvastatin calcium Allergy MUSCLE Verified 10/23/24 13:39
[From Lipitor] CRAMPS
levofloxacin [From Levaquin] Allergy ACHILLES Verified 10/23/24 13:39
CRAMPS
lisinopril Allergy Unknown Verified 10/23/24 13:39
simvastatin Allergy AGITATION/ Verified 10/23/24 13:39
LEG ACHES
spironolactone Allergy gynecomasti Verified 10/23/24 13:39
[From Aldactone] a
Home Medications
atenolol 25 mg tablet 25 mg PO HS 05/11/10
ezetimibe 10 mg tablet 10 mg PO DAILY 05/11/10
aspirin 81 mg tablet,delayed release (Leni Low Dose Aspirin) 81 mg PO HS 03/26/15
gabapentin 300 mg capsule 600 mg PO HS 07/29/18
clopidogrel 75 mg tablet 75 mg PO DAILY #90 tabs 08/03/18
nitroglycerin 0.4 mg sublingual tablet 0.4 mg sublingual [id number] PRN chest pain/sob #25 tabs 08/03/18
eplerenone 25 mg tablet 25 mg PO DAILY 07/09/19
acetaminophen 500 mg tablet 1,000 mg PO BID 10/24/19
allopurinol 100 mg tablet 100 mg PO DAILY 10/24/19
famotidine 20 mg tablet 20 mg PO DAILY 10/24/19
fluticasone propionate 50 mcg/actuation nasal spray,suspension 2 spray intranasal HS 10/24/19
hydrochlorothiazide 12.5 mg tablet 12.5 mg PO DAILY 02/27/22
levomefolate--vitamins B12-B6 2.8 mg-2 mg-25 mg tablet 1 tab PO BID 02/27/22
fakxrnxc-uzs-jknnjg 5 mg-zeaxanth 1 mg-bilberry 7.5 mg-herbal capsule (Macular Health Formula) 1 ea PO NOON 02/27/22
sodium citrate-citric acid 500 mg-334 mg/5 mL oral solution 15 ml PO BID 02/27/22
Medical Marijuana 10 mg PO QID 10/23/24
amlodipine 5 mg tablet 5 mg PO DAILY 10/23/24
cyclosporine 0.05 % eye drops 1 drp BOTH EYES Q12H 10/23/24
diazepam 5 mg tablet (Valium) 5 mg PO TIDPRN PRN spasm 10/23/24
docusate sodium 100 mg capsule (Colace) 100 mg PO DAILYPRN PRN constipation 10/23/24
gabapentin 300 mg capsule 300 mg PO NOON 10/23/24
oxycodone 5 mg tablet 5 mg PO Q6HPRN PRN severe Pain 10/23/24
peg 400-propylene glycol (PF) 0.4 %-0.3 % eye drops in a dropperette (Systane (PF)) 1 drp BOTH EYES Q12H 10/23/24
rosuvastatin 40 mg tablet 40 mg PO HS 10/23/24
Review of Systems
-
Constitutional: Reports No Symptoms
EENT: Reports No Symptoms
Respiratory: Reports No Symptoms
Cardiac: Reports No Symptoms
Abdomen/GI: Reports No Symptoms
: Reports Difficulty Voiding
Musculoskeletal: Reports Joint Pain and Muscle Pain
Skin: Reports No Symptoms
Neurological: Reports No Symptoms
Endocrine: Reports No Symptoms
Hematologic/Lymphatic: Reports No Symptoms
Psych: Reports No Symptoms
Physical Exam
Vital Signs
Vital Signs
Temp Pulse Resp BP Pulse Ox
98.4 F 68 18 188/108 98
10/23/24 13:39 10/23/24 13:39 10/23/24 13:39 10/23/24 13:39 10/23/24 13:39
Physical Exam
General: Well Developed, Well Nourished, No Apparent Distress and Appears in Distress
HEENT: NormoCephalic, Moist mucous membranes and Atraumatic
Respiratory: Clear and Non Labored Respirations
Cardiac: S1/S2 and Regular Rhythm; No Murmur or Rub
GI: Soft, Non Tender, Non Distended and Normal Bowel Sounds; No Organomegaly
Rectal: Deferred by Provider
Genito-urinary: Deferred by me
Musculoskeletal: No Clubbing, No Cyanosis, Edema, Right Lower Extremity (right knee), No Edema and Other (pain to left knee, left shoulder and right hip)
Skin: No Rash
Neuro: Nonfocal/grossly intact
Psych: Agitated
Laboratory Results
-
10/23/24 14:59
10/23/24 14:59
Data Reviewed
-
Diagnostic Radiology: Report Reviewed by me
Lab Data: Labs Reviewed by me
Impression/Plan
-
IMPRESSION/PLAN:
#failure to thrive
Hx left impacted humerus fracture
- Admit to telemetry
- pain regimen
- Ortho Consult
- x-rays pending
#Hyponatremia
Na+ 126
- monitor BMP
- Fluid restriction
- consider nephrology if no improvement
- deborah IVF
#CAD
#ID x2
Hx CABG
Hx cardiac stent
- continue amlodipine, aspirin, atenolol, clopidogrel, ezetimibe, and rosuvastatin
#GERD
- continue famotidine
#HTN
- continue amlodipine, atenolol
#Hypercholesterolemia
- continue ezetimibe, and rosuvastatin
Code status: DNR
DVT Prophylaxis: Heparin sq
[2024-10-23 16:50] LABS: Urine Albumin 1+ (Neg - Trace); Urine Bilirubin Negative (Negative); Urine Character Clear (Clear); Urine Color Yellow; Urine Glucose Negative (Negative); Urine Ketone Negative (Negative); Urine Leukocyte Negative (Negative); Urine Nitrite Negative (Negative); Urine Occult Blood 1+ (Negative); Urine Urobilinogen Negative (Neg - 1+)
[2024-10-23 17:02] LABS: Urine Bacteria Moderate (Negative); Urine White Cell 0-2 /HPF (0-5)
--- NOTE | 2024-10-23 17:04 | W.PN.UPDATE ---
Addendum entered and electronically signed by Fernando Montiel MD 10/23/24 18:13:
#anemia
will follow Hgb closely
anemia w/u
Original Note:
Update Note
Progress Note Update
I have personally examined the patient and agree with H&P written on the same date. In addition:
79yo M with PMHx of HTN, HLD, HTN, neuropathy fell 3 days ago and was found to have Impacted fracture, neck/head, proximal left humerus, sling placed and patient sent home. Pain gradually worsened and also developed L hip pain with L knee swelling.
Saw in the clinic, deemed to have not sufficient fluid for joint aspiration. Knee is swollen, not red and not hot. Brought to ED 2/2 worsening poor controlled pain. In ED found with confusion, not too different from his usual as per
bedside. Was given oxycodone and Valium at home.
A/P:
#Impacted fracture, neck/head, proximal left humerus
#L hip pain
#L knee swelling
Pain gmt - IV morphin/tylenol
XR L shoulder/hip/knee
Ortho consult
#Confusion
most likely iatrogenic 2/2 BZD/opioid combination
avoid BZD
#Hyponatremia
#VIJAY
Bladder scan, straight cath if needed
IVF NS
Urine Na, Osm, Cr
Serial BMP
Hold HCTZ
#mild leukocytosis
UA pending
check XR chest
no fever on admission
follow CBC
check COVID-19 (was positive in May 2024) and influenza
#Aortic root dilation
#CAD
#HLD
#Essential HTN
cont home meds
Control BP with hydralazine
DVT ppx hep
I have spent at least 79min reviewing chart, test results, communication with consultants, family and direct patient care
[2024-10-23] MEDS: DILAUDID 0.25 MG IV (17:31)
[2024-10-23 17:57] LABS: INR 1.11; PT 14.8 Sec (11.4-14.6)
[2024-10-23 17:58] LABS: APTT 37.2 Sec (23.4-35.0)
[2024-10-23 18:12] LABS: Blood Urea Nitrogen 45 mg/dl (9-20); Carbon Dioxide 27 mmol/L (22-30); Chloride 91 mmol/L (98-107); Glucose 141 mg/dl (70-99); Potassium 4.1 mmol/L (3.5-5.1); Sodium 127 mmol/L (135-145); eGFR 56.23
[2024-10-23 18:17] LABS: Osmolality Urine 630 mOsm/kg (300-900)
[2024-10-23 18:21] LABS: Urine Sodium 10 mmol/L (30-90)
[2024-10-23 18:28] LABS: COVID-19 Antigen Negative (Negative)
[2024-10-23] MEDS: MORPHINE SULFATE 2 MG IV ×2 (19:31→22:44)
[2024-10-23 21:13] VITALS: BMI 25.5
[2024-10-23 21:52] VITALS: BP 104/62
[2024-10-23 22:00] VITALS: BP 100/83
[2024-10-23] MEDS: REFRESH EYE DROPS (PF) 1 DROPS BOTH EYES (22:00)
[2024-10-23] MEDS: NEURONTIN 600 MG PO (22:00)
[2024-10-23] MEDS: CRESTOR 40 MG PO (22:01)
[2024-10-23] MEDS: TENORMIN PO (22:01)
[2024-10-23] MEDS: ASPIR LOW (ENTERIC COATED) 81 MG PO (22:01)
[2024-10-23] MEDS: BICITRA 15 ML PO (22:01)
[2024-10-23 22:49] VITALS: BP 98/69
[2024-10-23] MEDS: RESTASIS 0.05% OPHTHALMIC EMULSION BOTH EYES (23:00)
[2024-10-24] VITALS (27 sets, daily range): BP systolic 90–153; BP diastolic 34–122
[2024-10-24] MEDS: HEPARIN 5000 UNITS SC ×4 (00:45→23:12)
[2024-10-24] MEDS: MORPHINE SULFATE 2 MG IV ×2 (02:46→06:03)
[2024-10-24 05:40] LABS: Hematocrit 30.5 % (39.0-52.0); Hemoglobin 10.9 g/dL (13.0-18.0); Mean Corp Hgb Conc. 35.7 g/dL (33.0-37.0); Mean Corpuscular Hgb 32.7 pg (27.0-31.0); Mean Corpuscular Volume 91.6 fL (80.0-94.0); Mean Platelet Volume 10.3 fL (7.4-10.4); Platelet Count 143 10^3/uL (130-400); Red Blood Cell Count 3.33 10^6/uL (4.70-6.10); Red Cell Dist. Width 11.7 % (11.5-14.5); White Blood Cell Count 9.6 10^3/uL (4.8-10.8)
[2024-10-24 06:04] LABS: Blood Urea Nitrogen 33 mg/dl (9-20); Calcium 8.4 mg/dl (8.4-10.2); Carbon Dioxide 25 mmol/L (22-30); Chloride 95 mmol/L (98-107); Estimated Creatinine Clearance 61 ml/min; Glucose 113 mg/dl (70-99); Potassium 3.5 mmol/L (3.5-5.1); Sodium 131 mmol/L (135-145); eGFR > 60.00
[2024-10-24] MEDS: DILAUDID 0.5 MG IV ×6 (07:59→23:05)
--- NOTE | 2024-10-24 07:59 | W.PN.HOSP.TC ---
Today's Communication/Plan
-
see PN
Assessment / Plan
Assessment / Plan
79yo M with PMHx of b/l renal artery stenting, CAD s/.p CABG, 1st degree AVB, HTN, HLD, HTN, neuropathy fell 3 days ago and was found to have Impacted fracture, neck/head, proximal left humerus, sling placed and patient sent home. Pain gradually
worsened and also developed L hip pain with L knee swelling. Saw in the clinic, deemed to have not sufficient fluid for joint aspiration. Knee is swollen, not red and not hot. Brought to ED 2/2 pain mostly on LLE causing significant
confusion. Also concern for LLL pneumonia and UTI
A/P:
#Impacted fracture, neck/head, proximal left humerus
#LLE hip pain
#Lower back pain
#L knee swelling
Pain gmt - IV morphin/tylenol
XR L shoulder/hip/knee
CT lumbar spine
Ortho consult
#Lower back pain
recent fall - CT lumbar spine
#Anemia
most likely 2/2 trauma as significanyt bruising around L shoulder
follow CBC
hold Plavix since last tent in 2017
#Confusion
most likely iatrogenic 2/2 BZD/opioid combination
avoid BZD
#possible UTI
#Possible LLL pneumonia
#mild leukocytosis
with patient being poor historian - cannot defferentiate with atelectasis and asymptomatic bacteriuria
Ceftriaxone/Doxy
check COVID-19 (was positive in May 2024) and influenza
#Hyponatremia
#VIJAY
#Hx of b/l renal stenting
VIJAY resolved on hydration - no concern for stent occlusion at this time
Bladder scan, straight cath if needed
IVF NS
Serial BMP
Hold HCTZ
#Aortic root dilation
#CAD
#HLD
#Essential HTN
cont home meds
Control BP with hydralazine
DVT ppx hep
I have spent at least 59min reviewing chart, test results, communication with consultants, family and direct patient care
Anticipated Discharge: > 48 hours
Subjective/Interval History
-
Date of Service: October 24, 2024
Objective Data
-
Labs:
Laboratory Results
10/24/24 10/24/24 10/24/24
03:00 05:18 11:00
WBC 9.6
Hgb 10.9 L
Hct 30.5 L
Plt Count 143
Sodium Cancelled 131 L Cancelled
Potassium Cancelled 3.5 Cancelled
Chloride Cancelled 95 L Cancelled
Carbon Dioxide Cancelled 25 Cancelled
BUN Cancelled 33 H Cancelled
Creatinine Cancelled 1.1 Cancelled
Glucose Cancelled 113 H Cancelled
Calcium Cancelled 8.4 Cancelled
10/24/24
19:00
WBC
Hgb
Hct
Plt Count
Sodium Cancelled
Potassium Cancelled
Chloride Cancelled
Carbon Dioxide Cancelled
BUN Cancelled
Creatinine Cancelled
Glucose Cancelled
Calcium Cancelled
Vital Signs:
Vital Signs
Temp Pulse Resp BP Pulse Ox
98.4 F 91 27 90/75 94
10/23/24 21:40 10/24/24 03:15 10/24/24 03:15 10/24/24 03:12 10/24/24 03:04
I&O
10/23/24 10/24/24 10/25/24
06:59 06:59 06:59
Output Total 775 / 775
Balance -775 / -775
Review of Systems
-
History Source: Patient
All other systems: Reviewed and negative
Musculoskeletal: Reports Other (LLE pain)
Physical Exam
-
General: Appears in Distress and Pain
HEENT: Moist Mucous Membranes
Respiratory: Clear to Auscultation
Cardiac: Regular Rhythm
GI: Soft, Nontender and Nondistended
Musculoskeletal: Other (pain in LLE from hip down to the foot)
Skin: Warm
Neuro: Awake, Alert, Oriented and AO x 3
Psych: Agitated
--- NOTE | 2024-10-24 08:32 | W.PN.UPDATE ---
Update Note
Progress Note Update
Attempted to see patient for AM rounds but patient was currently at CT; will return for ortho eval at later time.
--- NOTE | 2024-10-24 08:35 | VNURNOTE ---
Chart reviewed. Patient is current with [facility] nursing, OT. Will continue to follow hospital course and DC plans.
[2024-10-24] MEDS: ROCEPHIN 1000 MG IV (10:04)
[2024-10-24] MEDS: STERILE WATER FOR INJECTION 10 ML IV (10:04)
[2024-10-24] MEDS: REFRESH EYE DROPS (PF) 1 DROPS BOTH EYES ×3 (10:05→21:04)
[2024-10-24] MEDS: PEPCID 20 MG PO (10:05)
[2024-10-24] MEDS: ZYLOPRIM 100 MG PO (10:05)
[2024-10-24] MEDS: RESTASIS 0.05% OPHTHALMIC EMULSION 1 DROPS BOTH EYES ×2 (10:05→21:34)
[2024-10-24] MEDS: INSPRA PO (10:07)
[2024-10-24] MEDS: VIBRAMYCIN 100 MG PO (10:09)
[2024-10-24] MEDS: ZETIA 10 MG PO (10:09)
[2024-10-24] MEDS: NSS 1000 IV (11:45)
[2024-10-24] MEDS: BICITRA 15 ML PO (11:46)
--- NOTE | 2024-10-24 11:47 | W.PN.UPDATE ---
Update Note
Progress Note Update
Multilevel disk bulging with nerve root impingement on CT lumbar spine. Order MRI, increase dilaudid, add naloxone, lidociane patch and neuroSx consult
[2024-10-24 12:27] LABS: Osmolality Urine 627 mOsm/kg (300-900)
[2024-10-24 13:05] LABS: Urine Sodium 88 mmol/L (30-90)
--- NOTE | 2024-10-24 13:42 | PTCARENOTE ---
pt awake. moaning yelling out stating he has pain. made aware pain med given as ordered. does answer orientation questions eventually when prompted. left arm in sling with large bruise over shoulder right side. left knee swollen. ortho at
bedside to aspirate and send off sample. pt taken to ct scan and xray for tests. pt at bedside. reviewed pt condition and plan of care.
[2024-10-24 15:01] LABS: Body Fluid Mononuclear 5.8 %; Body Fluid Polymorphonuclear 94.2 %; Body Fluid WBC 37760 /CUMM
[2024-10-24 15:08] LABS: Body Fluid Second Tech CF
[2024-10-24] MEDS: NEURONTIN PO (15:31)
--- NOTE | 2024-10-24 16:16 | CON.ORTHO ---
Consultation
-
Date/Time Consultation Requested: 10/23/24 1653
Date/Time Consultation Performed: 10/24/24 1230
Requesting Provider: Dr. Fernando Montiel
Performing Provider: BENITA Viveros, Dr. Yadiel Chen, Dr. Pelon Doherty
Reason for Consultation: Left shoulder fracture, left knee pain
Consultation - Orthopedics
History
79-year-old male known to our practice and recently seen in the office on 22 October 2024 with a colleague with a known left proximal humerus fracture. Images were reviewed with Dr. Doherty and patient was recommended for continuation of nonoperative
management. He has been utilizing a sling; he does have a known history of knee osteoarthritis and it was elected to perform an injection of Hymovis using a superior lateral approach.
Patient originally sustained a fall on 20 October 2024 with impact to left shoulder and was seen originally at [place] with CT and radiographs. Since time of return emergency room evaluation patient has increasing pain report about the left hip
and swelling about the left knee and has had increasing confusion.79-year-old male known to our practice and recently seen in the office on 22 October 2024 with a colleague with a known left proximal humerus fracture. Images were reviewed with Dr. Bessy (~) and patient was recommended for continuation of nonoperative management. He has been utilizing a sling; he does have a known history of knee osteoarthritis and it was elected to perform an injection of Hymovis using a superior lateral approach.
Patient originally sustained a fall on 20 October 2024 with impact to left shoulder and was seen originally at [place] with CT and radiographs. Since time of return emergency room evaluation patient has increasing pain report about the left hip
and swelling about the left knee and has had increasing confusion.
79-year-old male known to our practice and recently seen in the office on 22 October 2024 with a colleague with a known left proximal humerus fracture. Images were reviewed with Dr. Doherty and patient was recommended for continuation of nonoperative
management. He has been utilizing a sling; he does have a known history of knee osteoarthritis and it was elected to perform an injection of Hymovis using a superior lateral approach.
Patient originally sustained a fall on 20 October 2024 with impact to left shoulder and was seen originally at [place] with CT and radiographs. Since time of return emergency room evaluation patient has increasing pain report about the left hip
and swelling about the left knee and has had increasing confusion.
Of note, The patient has had reported increased confusion and primary history was obtained to the spouse and daughter who are present. Report patient only groans of discomfort when waking up
Allergies / Home Medications
Past Medical History
Past Medical History: Reports Other
Additional Past Medical History:
CAD
GERD
HTN
Hypercholesterolemia
VA x2
Renal insufficiency
Lumbar disc disease with sciatica
kidney stone
Neuropathy
Colitis
Diverticulitis
Ulcers
skin cancer
Hemorrhoid
C-diff
Past Surgical History: Reports Other
Additional Past Surgical History:
CABG
PTCA
left knee
cervical fusion
renal stents
vasectomy
mastectomy
Social History
Tobacco: Former Smoker
Alcohol: Former
Personal:
Living: With Family
Employment: Retired
Family History
Family History: Not pertinent
Allergy/AdvReac Type Severity Reaction Status Date / Time
atorvastatin calcium Allergy MUSCLE Verified 10/23/24 13:39
[From Lipitor] CRAMPS
levofloxacin [From Levaquin] Allergy ACHILLES Verified 10/23/24 13:39
CRAMPS
lisinopril Allergy Unknown Verified 10/23/24 13:39
simvastatin Allergy AGITATION/ Verified 10/23/24 13:39
LEG ACHES
spironolactone Allergy gynecomasti Verified 10/23/24 13:39
[From Aldactone] a
�Medication �Instructions �Recorded
atenolol 25 mg tablet 25 mg PO HS 05/11/10
ezetimibe 10 mg tablet 10 mg PO DAILY 05/11/10
aspirin 81 mg tablet,delayed 81 mg PO HS 03/26/15
release (Leni Low Dose Aspirin)
gabapentin 300 mg capsule 600 mg PO HS 07/29/18
clopidogrel 75 mg tablet 75 mg PO DAILY #90 tabs 08/03/18
nitroglycerin 0.4 mg sublingual 0.4 mg sublingual [id number] PRN 08/03/18
tablet chest pain/sob #25 tabs
eplerenone 25 mg tablet 25 mg PO DAILY 07/09/19
acetaminophen 500 mg tablet 1,000 mg PO BID 10/24/19
allopurinol 100 mg tablet 100 mg PO DAILY 10/24/19
famotidine 20 mg tablet 20 mg PO DAILY 10/24/19
fluticasone propionate 50 2 spray intranasal HS 10/24/19
mcg/actuation nasal
spray,suspension
hydrochlorothiazide 12.5 mg tablet 12.5 mg PO DAILY 02/27/22
levomefolate--vitamins B12-B6 2.8 1 tab PO BID 02/27/22
mg-2 mg-25 mg tablet
zaamhpnt-bvh-jdjczv 5 mg-zeaxanth 1 ea PO NOON 02/27/22
1 mg-bilberry 7.5 mg-herbal
capsule (Macular Health Formula)
sodium citrate-citric acid 500 15 ml PO BID 02/27/22
mg-334 mg/5 mL oral solution
Medical Marijuana 10 mg PO QID 10/23/24
amlodipine 5 mg tablet 5 mg PO DAILY 10/23/24
cyclosporine 0.05 % eye drops 1 drp BOTH EYES Q12H 10/23/24
diazepam 5 mg tablet (Valium) 5 mg PO TIDPRN PRN spasm 10/23/24
docusate sodium 100 mg capsule 100 mg PO DAILYPRN PRN constipation 10/23/24
(Colace)
gabapentin 300 mg capsule 300 mg PO NOON 10/23/24
oxycodone 5 mg tablet 5 mg PO Q6HPRN PRN severe Pain 10/23/24
peg 400-propylene glycol (PF) 0.4 1 drp BOTH EYES Q12H 10/23/24
%-0.3 % eye drops in a dropperette
(Systane (PF))
rosuvastatin 40 mg tablet 40 mg PO HS 10/23/24
Vital Signs / Lab Results
Temp Pulse Resp BP Pulse Ox
98.4 F 72 15 93/55 94
10/23/24 21:40 10/24/24 13:30 10/24/24 13:30 10/24/24 12:00 10/24/24 09:00
10/24/24 05:18
10/24/24 19:00
PHYSICAL EXAM:
Focused examination of the left upper extremity at the level the shoulder shows skin is intact. Range of motion was not assessed. There is a large amount of ecchymosis that is late stage mostly to the axilla and medial brachium. He demonstrates
intact elbow extension
Focused examination at the level of the left knee shows a large effusion. Knee range of motion passively with mild discomfort between 0 and 45 degrees. There is no surrounding erythema. Area from recent injection appears healing without issue
PHYSICAL EXAM:
Focused examination of the left upper extremity at the level the shoulder shows skin is intact. Range of motion was not assessed. There is a large amount of ecchymosis that is late stage mostly to the axilla and medial brachium. He demonstrates
intact elbow extension
Focused examination at the level of the left knee shows a large effusion. Knee range of motion passively with mild discomfort between 0 and 45 degrees. There is no surrounding erythema. Area from recent injection appears healing without issue
Assessment / Plan
DOI: 20 October 2024
Orthopedic issues:
1. Left impacted proximal humerus fracture
2. Left knee effusion
3. Reported left hip pain
79-year-old male pending admission to [facility] for the emergency room for increasing pain and dysfunction in his lower extremities with onset of swelling after Hymovis injection of his left knee, he known proximal humerus fracture of the
left side, and vague discomfort in the hip and low back area with increasing confusion of the patient
1. Left proximal humerus fracture
-There is no significant interval displacement of his fracture. Recommended for continued nonoperative management. He will utilize a sling for the time being but when bedrest or seated he may take periodic breaks from his sling. He may perform
elbow wrist and hand range of motion to avoid stiffness. No shoulder range of motion and nonweightbearing of the left upper extremity such as with assistive devices
2. Left knee effusion
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
unlikely for infection as the onset of symptoms are rapid and more likely for pseudo septic reaction versus CPPD. Pending final labs to confirm diagnosis and can consider intra-articular steroid along with relative rest pending safe to do in the
setting of his medical other conditions
3. Left hip/back pain:
-Radiographs of the left hip are unremarkable; recommend when appropriate for physical therapy ambulation as tolerated; if he has increasing pain focal towards the hip can consider MRI to rule out occult fracture however at this timeframe there is
no radiographic evidence and documentation seems to infer more likely radiculopathy from the lumbar spine for the time being. Will continue to monitor with patient's overall status when able to further assess ability to ambulate
--- NOTE | 2024-10-24 16:29 | PHA.VAN.IN ---
Assessment
- Assessment
Renal Function: Appears similar to baseline
Maximum Temperature: 98.4
Concomitant Antimicrobials: piperacillin-tazobacam
AUC Dosing Plan
- Dosing Variables
Dosing Weight (kg): 85.1
Dosing CrCl (ml/min): 61
Vd coefficient (L/kg): 0.7
- Empiric Dosing
Initial / Loading Dose: 1500mg 10/24 - pending administration
Maintenance Regimen: vanc 1500mg q24h; in leiu of a full loading dose, start regimen 10/25 0600
Estimated AUC (mcg*h/mL): 483
Estimated Peak (mcg*h/mL): 34.4
Estimated Trough (mcg/ml): 10.2
Estimated Half Life (H): 12.6
- Monitoring
No levels ordered at this time: consider in the upcoming days
Pharmacokinetics Vancomycin I
- -
Patient Age: 79
Patient Sex: Male
Vancomycin Day #: 1
Indication: Bone And Joint
Requesting Provider: Dr Montiel
Pertinent Antimicrobial Allergies:
levofloxacin [From Levaquin] Allergy (Verified 10/23/24 13:39)ACHILLES CRAMPS
Height / Weight:
Height 6 ft
Actual Weight 85.1 kg
- Vital Signs / Lab Results
Temp Pulse Resp BP Pulse Ox
98.4 F 72 15 93/55 94
10/23/24 21:40 10/24/24 13:30 10/24/24 13:30 10/24/24 12:00 10/24/24 09:00
Lab Results - Hematology
10/23/24 10/24/24
14:59 05:18
WBC 11.4 H 9.6
Lab Results - Chemistry
10/23/24 10/23/24 10/24/24
14:59 17:34 03:00
BUN 46 H 45 H Cancelled
Creatinine 1.6 H 1.3 Cancelled
Estimated Creat Clear Cancelled
10/24/24 10/24/24 10/24/24
05:18 11:00 19:00
BUN 33 H Cancelled Cancelled
Creatinine 1.1 Cancelled Cancelled
Estimated Creat Clear 61 Cancelled Cancelled
Lab Results - Urine
10/23/24
16:36
Urine Nitrite (Reflex) Negative
Leukocyte Esterase Rfl Negative
Urine WBC (Reflex) 0-2
Ur Squamous Epith Cells 3-5
Urine Bacteria (Reflex) Moderate A
Microbiology Results
10/23/24 16:36 Urine Culture - Final
Urine NO GROWTH
10/23/24 17:34 Influenza Types A & B (SARBJIT) - Final
Nasal Swab Negative for Influenza A & B, NAAT
Negative results must be combined with clinical observations
and patient history.
Nucleic Acid Amplification test (NAAT)performed on the
[employer] platform.
[2024-10-24] MEDS: VANCOCIN 530 MG IV (16:52)
[2024-10-24] MEDS: LIDOCAINE 4% PATCH 1 PATCH TOPICAL (16:52)
[2024-10-24] MEDS: STERILE WATER FOR INJECTION 2.1 ML IM ×2 (17:29→22:33)
[2024-10-24] MEDS: ZYPREXA 2.5 MG IM ×2 (17:29→22:33)
[2024-10-24] MEDS: TORADOL 15 MG IV (17:34)
[2024-10-24 18:41] LABS: Venous Blood Gas B.E. 0.4 mmol/L (-4 to +4); Venous Blood Gas HCO3 22.9 mmol/L (22-27); Venous Blood Gas pCO2 30 mmHg (35-48); Venous Blood Gas pH 7.49 (7.32-7.43); Venous Blood Gas pO2 128 mmHg (30-50)
[2024-10-24] MEDS: ZOSYN 50 IV ×2 (18:44→23:12)
[2024-10-24 18:47] LABS: Venous Blood Gas O2 Sat % 99.1 %
[2024-10-24 18:54] LABS: Lactic Acid 1.3 mmol/L (0.7-2.0)
[2024-10-24 18:55] LABS: Ammonia < 9 umol/L (9-30)
[2024-10-24] MEDS: PROTONIX IV 40 MG IV (20:04)
[2024-10-24] MEDS: NSS (PRESERVATIVE FREE) 10 ML IV (20:13)
[2024-10-24] MEDS: BICITRA PO (21:05)
[2024-10-24] MEDS: TENORMIN PO (21:35)
[2024-10-24] MEDS: CRESTOR 40 MG PO (22:06)
[2024-10-24] MEDS: NEURONTIN 600 MG PO (22:06)
[2024-10-24] MEDS: ASPIR LOW (ENTERIC COATED) 81 MG PO (22:06)
--- NOTE | 2024-10-24 23:22 | PTCARENOTE ---
Pt has been AAOx1, anxious, confused, forgetful. Unable to control pain once he wakes up. Pt has been screaming and trying to climb up. See MAR for pain management. Pt has been restless and interfering with tx. Zyprexa IM given without any results.
Pt NSR in the monitor. Pt placed on 2L NC O2 for comfort.
[2024-10-25] VITALS (11 sets, daily range): BP systolic 84–122; BP diastolic 43–99; BMI 23.8
[2024-10-25] MEDS: TORADOL 15 MG IV ×2 (01:50→12:08)
[2024-10-25] MEDS: NSS 1000 IV (01:56)
[2024-10-25] MEDS: DILAUDID 0.5 MG IV ×6 (02:26→20:26)
[2024-10-25] MEDS: ZOSYN 50 IV ×3 (05:01→17:03)
[2024-10-25 05:23] LABS: % Basophils 0.3 % (0-2); % Eosinophils 0.9 % (0-6); % Immature Granulocytes 0.3 % (0-0.5); % Lymphocytes 15.4 % (20.5-51.1); % Neutrophils 68.1 % (42.2-75.2); Absolute Eosinophils 0.1 10^3/uL (0-0.7); Absolute Lymphocytes 1.1 10^3/uL (1.2-3.4); Absolute Monocytes 1.1 10^3/uL (0.1-0.6); Hematocrit 29.4 % (39.0-52.0); Hemoglobin 10.5 g/dL (13.0-18.0); Mean Corp Hgb Conc. 35.7 g/dL (33.0-37.0); Mean Corpuscular Volume 92.5 fL (80.0-94.0); Mean Platelet Volume 9.9 fL (7.4-10.4); Nucleated Red Blood Cells % 0 % (-); Platelet Count 150 10^3/uL (130-400); Red Blood Cell Count 3.18 10^6/uL (4.70-6.10); Red Cell Dist. Width 11.7 % (11.5-14.5); White Blood Cell Count 7.4 10^3/uL (4.8-10.8)
[2024-10-25 05:48] LABS: ALT (SGPT) 118 U/L (0-50); AST (SGOT) 294 U/L (17-59); Alkaline Phosphatase 87 U/L (38-126); Blood Urea Nitrogen 28 mg/dl (9-20); Calcium 8.1 mg/dl (8.4-10.2); Carbon Dioxide 23 mmol/L (22-30); Chloride 99 mmol/L (98-107); Estimated Creatinine Clearance 61 ml/min; Glucose 105 mg/dl (70-99); Potassium 3.6 mmol/L (3.5-5.1); Sodium 133 mmol/L (135-145); Total Bilirubin 1.7 mg/dl (0.2-1.3); Total Protein 5.7 g/dl (6.3-8.2); eGFR > 60.00
[2024-10-25 05:57] LABS: Procalcitonin 1.22 ng/ml (0.0-0.25)
[2024-10-25 06:16] LABS: Direct Bilirubin 0.5 mg/dl (0.0-0.4); LDH 430 U/L (120-246)
[2024-10-25] MEDS: VANCOCIN 530 MG IV (06:35)
[2024-10-25] MEDS: LR 1000 IV ×2 (06:47→17:03)
--- NOTE | 2024-10-25 07:33 | W.PN.HOSP.TC ---
Today's Communication/Plan
-
slight improvement in mentation
complained only about L hip pain
Still will poor recovery and uncertain clinical picture - will get ID, neuro and GI opinion
Assessment / Plan
Assessment / Plan
79yo M with PMHx of b/l renal artery stenting, CAD s/.p CABG, 1st degree AVB, HTN, HLD, HTN, neuropathy fell 3 days ago and was found to have Impacted fracture, neck/head, proximal left humerus, sling placed and patient sent home. Pain gradually
worsened and also developed L hip pain with L knee swelling. Saw in the clinic, deemed to have not sufficient fluid for joint aspiration. Knee is swollen, not red and not hot. Brought to ED 2/2 pain mostly on LLE causing significant
confusion. Also concern for LLL pneumonia and UTI
A/P:
#Impacted fracture, neck/head, proximal left humerus
#LLE hip pain
#L knee swelling with large effusion, crystal arthropathy (CPPD), cannot exclude septic knee
#LLE pain
Lactate WNL, dorsalis pedis on both feet palpable, no toe discoloration
US neg for DVT
Pain gmt - IV Dilaudid/Toradol
XR L hip/knee - no fracture
Ortho consult: s/p L knee arthrocentesis, Cx pending, significant inflammatory cells, calcium pyrophosphate crystals
Vanco/Zosyn
ID consult
#possible UTI
#Possible LLL pneumonia
#mild leukocytosis
with patient being poor historian - cannot differentiate with atelectasis and asymptomatic bacteriuria
Add Doxy
Abx
COVID-19 (was positive in May 2024) and influenza neg
Bcx pending
#Lower back pain
#Old 90% anterior wedge compression fracture of T12
CT lumbar spine, multilevel DJD, no cord compression, but significant nerve impingements
MRI lumbar spine
#Toxic metabolic encephalopathy vs pain-induced encephalopathy
Head CT - no abnormality
can be 2/2 pain vs infection
TSH, ammonia WNL
MRI brain
Neuro consult
#Transaminitis
#Indirect bilirubinemia
No biliary pathology on CT abd
follow LFT
check hepatitis panel
avoid statin and tylenol
GI consult
#Elevated LDH
check haptoglobin, ANTONELLA
follow LDH
No over signs of hemolysis on CBC
most likely hematoma resorption 2/2 large L shoulder bruise
#Anemia
most likely 2/2 trauma as significant bruising around L shoulder
follow CBC
hold Plavix since last stent in 2018
#Hyponatremia
#VIJAY
#Hx of b/l renal stenting
#Acute urinary retention
Coates
VIJAY resolved on hydration - no concern for stent occlusion at this time
IVF
Serial BMP
Hold HCTZ
#Aortic root dilation
#CAD
#HLD
#Essential HTN
cont home meds
Control BP with hydralazine
#L kidney cyst
#Nephrolithiasis non-obstructing
hydrate
outpatient urology f/u
DVT ppx hep
I have spent at least 59min reviewing chart, test results, communication with consultants, family and direct patient care
Anticipated Discharge: > 48 hours
Subjective/Interval History
-
Date of Service: October 25, 2024
Objective Data
-
Labs:
Laboratory Results
10/25/24
04:59
WBC 7.4
Hgb 10.5 L
Hct 29.4 L
Plt Count 150
Sodium 133 L
Potassium 3.6
Chloride 99
Carbon Dioxide 23
BUN 28 H
Creatinine 1.1
Glucose 105 H
Calcium 8.1 L
Total Bilirubin 1.7 H
AST 294 H
ALT 118 H
Alkaline Phosphatase 87
Vital Signs:
Vital Signs
Temp Pulse Resp BP Pulse Ox
99.1 F 70 19 90/59 94
10/25/24 04:13 10/25/24 06:25 10/25/24 06:25 10/25/24 06:25 10/25/24 06:25
I&O
10/24/24 10/25/24 10/26/24
06:59 06:59 06:59
Intake Total 1090 / 1090
Output Total 775 / 775 1050 / 1050
Balance -775 / -775 40 / 40
Review of Systems
-
Unable to obtain full review of systems at this time due to: Acuity
History Source: Patient
Musculoskeletal: Reports Other (L hip pain)
[2024-10-25 08:19] LABS: Creatine Phosphokinase 3097 U/L (55-170)
[2024-10-25 08:30] LABS: Acetaminophen < 10 ug/ml (10-30)
--- NOTE | 2024-10-25 08:41 | W.PN.UPDATE ---
Update Note
Progress Note Update
CPK elevated - trauma and hematoma resorption, most likely causing elevated AST/ALT and indirect bilirubinemia- no need in GI consult
[2024-10-25] MEDS: PROTONIX IV 40 MG IV ×2 (08:58→19:22)
[2024-10-25] MEDS: NSS (PRESERVATIVE FREE) 10 ML IV ×2 (08:58→19:22)
[2024-10-25] MEDS: LIDOCAINE 4% PATCH 1 PATCH TOPICAL (08:58)
[2024-10-25] MEDS: ZYLOPRIM 100 MG PO (08:59)
[2024-10-25] MEDS: VIBRAMYCIN 260 MG IV (08:59)
[2024-10-25] MEDS: HEPARIN 5000 UNITS SC ×3 (08:59→23:40)
[2024-10-25] MEDS: PEPCID 20 MG PO (08:59)
[2024-10-25] MEDS: REFRESH EYE DROPS (PF) 1 DROPS BOTH EYES (08:59)
[2024-10-25] MEDS: RESTASIS 0.05% OPHTHALMIC EMULSION 1 DROPS BOTH EYES ×2 (09:00→20:19)
[2024-10-25] MEDS: STERILE WATER FOR INJECTION IV (09:20)
[2024-10-25 10:20] LABS: Benzodiazepines Positive (Negative)
[2024-10-25 10:21] LABS: Amphetamines Negative (Negative); Barbiturates Negative (Negative); Buprenorphine Negative (Negative); Cocaine Negative (Negative); Marijuana Positive (Negative); Methadone Negative (Negative); Methamphetamines Negative (Negative); Opiates Positive (Negative); Phencyclidine Negative (Negative); Tricyclic Antidepressants Negative (Negative)
--- NOTE | 2024-10-25 10:27 | PHA.VAN.FU ---
Vancomycin Assessment / Plan
- Assessment
Renal Function: Stable
WBC's are: WNL
In the past 24 hrs, patient has been: Afebrile
Concomitant Antimicrobials: doxycycline; piperacillin/tazo
- Dosing Plan
Continue: 1500 mg q24h
- Monitoring Plan
No level(s) ordered at this time: consider level after 4th dose ( Sunday AM)
- Follow Up
Pharmacy will continue to follow.
Vancomycin Follow UP
- -
Patient Age: 79
Patient Sex: Male
Vancomycin Day #: 2
Indication: Bone And Joint
Requesting Provider: Dr Montiel
Pertinent Antimicrobial Allergies:
levofloxacin [From Levaquin] Allergy (Verified 10/23/24 13:39)ACHILLES CRAMPS
Height / Weight:
Height 6 ft
Actual Weight 85.1 kg
- Vital Signs / Lab Results
Temp Pulse Resp BP Pulse Ox
98.2 F 70 11 110/61 94
10/25/24 09:19 10/25/24 09:22 10/25/24 09:22 10/25/24 09:22 10/25/24 09:22
Lab Results - Hematology
10/23/24 10/24/24 10/25/24
14:59 05:18 04:59
WBC 11.4 H 9.6 7.4
Lab Results - Chemistry
10/23/24 10/23/24 10/24/24
14:59 17:34 03:00
BUN 46 H 45 H Cancelled
Creatinine 1.6 H 1.3 Cancelled
Estimated Creat Clear Cancelled
Albumin
10/24/24 10/24/24 10/24/24
05:18 11:00 19:00
BUN 33 H Cancelled Cancelled
Creatinine 1.1 Cancelled Cancelled
Estimated Creat Clear 61 Cancelled Cancelled
Albumin
10/25/24
04:59
BUN 28 H
Creatinine 1.1
Estimated Creat Clear 61
Albumin 3.0 L
10/24/24
18:31
Lactic Acid 1.3
Microbiology Results
10/24/24 13:14 Gram Stain - Preliminary
Joint Fluid
10/23/24 16:36 Urine Culture - Final
Urine NO GROWTH
10/23/24 17:34 Influenza Types A & B (SARBJIT) - Final
Nasal Swab Negative for Influenza A & B, NAAT
Negative results must be combined with clinical observations
and patient history.
Nucleic Acid Amplification test (NAAT)performed on the
[employer] platform.
--- NOTE | 2024-10-25 10:35 | W.PN.UPDATE ---
Update Note
Progress Note Update
Assessment:
Mr. Rose is a 79 year old male with a very complex current medical condition. IV antibiotics added yesterday and mentation has slightly improved. Case discussed with Dr. Montiel, and encephalopathy is the current concern. Patient was able to
answer questions relatively appropriately, but still fatigued and mildly sedated. When asked where he was experiencing pain, his report was 'all over'.
-Left knee: trace effusion today. No specific tenderness to palpation. ROM 0-120 degrees with pain on passive flexion at the end point. Calf soft and non tender to palpation.
-Left hip: NTTP. Full ROM with no complaints of pain. Negative logroll. Able to perform SLR.
-right hip: NTTP. Full ROM with no complaints of pain. Negative logroll. Able to perform SLR.
-Left shoulder: swelling improving. Extensive ecchymosis of upper extremity. Able to wiggle fingers and make fist, although this is weak. Able to move elbow with minimal discomfort. ROM shoulder not tested. N/v intact distally =.
Left knee fluid analysis with WBC count 37,760, 94.2% PMNs. + CPPD crystals. Gram stain with WBC, no organisms seen. Culture pending.
Plan:
1. Mr. Rose's left knee effusion has significantly improved with aspiration. Fluid analysis revealed CPPD crystals, c/w pseudogout vs. pseudoseptic reaction from hymovis injection on 10/22/2024. Continue to follow cultures, but low suspicion for
septic knee at this time.
2. Left hip pain - low suspicion for fracture as exam is completely benign this morning. Continue to observe. Will benefit from PT/OT when medically stable. Will continue to monitor during admission.
3. 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 Continue with non operative management with serial radiographs to r/o displacement.
[2024-10-25 10:36] LABS: Fentanyl, Urine Negative (Negative)
--- NOTE | 2024-10-25 10:38 | CON.NEURO ---
Consultation
Order
Date of Consultation: 10/25/24
Requesting Provider: Fernando Montiel MD
Reason for Consult: Persistent confusion
Neurology Consultation Note.
HPI: This is a 79-year-old man who presented to [facility] on 10/23/2024 with encephalopathy. According to patient's spouse Mr. Collier been fully functional (driving, taking his medication independently, ambulating without assistive
device) until he received left knee injection for chronic knee pain. Shortly after that he was noted to be confused. Patient did sustain a fall 10/23 with associated head trauma and resulting left humeral fracture that is being managed
conservatively.
Mr. Spencer has history of cervical myelopathy and remote C4-C7 ACDF.
ER VS: 188/108-90/75, 68-100, afebrile
EKG:not available
PDMP:Diazepam 5 Mg 10 tablets filled in on 10/20/2024, 21 tablets filled in on 10/22/2024, Oxycodone Hcl (Ir) 5 Mg 10 tabs filled in on 10/20/2024, 40 tabs filled in on 10/22/2024.
Labs: Sodium�126, creatinine�1.6, glucose�136, WBCs�11.4, total bilirubin�1.7, ammonia less than 9, CK�3097, TSH�1.4 (10/24/2023), unremarkable UA, urine tox�positive for opioids, benzodiazepines, THC
CT head wo contrast�moderate diffuse atrophy, constantine cisterna magna.
PMH: Cervical myelopathy/ h/o cervical central spinal canal stenosis, LS radiculopathy, T12 chronic compression fracture, PAD, CAD, HTN, DLP, CKD, GERD, left humeral fracture, polyneuropathy, diverticulosis, Nephrolithiasis
PSH: L knee arthrocentesis, bilateral cataract surgery, C4-C7 ACDF, CABG, mastectomy, b/l renal artery stents, left knee arthroplasty,
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
FH: Not contributory to current presentation
All: Statins, lisinopril, Levaquin, spironolactone,
ROS: Positive for left arm pain, left knee pain, negative for headache, change in vision
General: Well developed. In no acute distress.
Cardio: Regular rate and rhythm without murmur. Extremities are without cyanosis or edema.
Neuro:
Mental Status: Awake, oriented to name, person not to time. Poor attention follows simple requests intermittently.
Cranial Nerves: Pupils are equally round, surgical EOMs full. BTT BL No ptosis. No nystagmus. Face symmetric. Impaired hearing AU. No dysarthria.
Motor: Moves all limbs antigravity. Pain related left proximal arm weakness. Left wrist dorsiflexion�at least 4 out of 5
Reflexes: Negative grasp bilaterally
Sensory: Limited exam due to poor attention
Coordination: No tremors, clonic movements
Gait: deferred
Assessment and Plan:
I. Multifactorial encephalopathy (metabolic (hyponatremia, uremia), toxic (opioids, benzodiazepines) vascular).
II. Constantine cisterna magna�
III.
-Thiamine
-Brain MRI wo dale
-Avoid opioids, benzodiazepines and anticholinergic medication
-Please start thiamine
-The case was discussed with patient's family
-Will follow
I personally reviewed all radiology and labs along with past medical records pertinent to current medical problems. Total time spent in patient care is 67 minutes.
Thank you for allowing us to participate in the care of this patient. We will continue to follow. Please do not hesitate to contact us with any questions or concerns.
Subjective/Objective
Subjective Data
Date of Service: October 25, 2024
Objective Data
Vital Signs
Temp Pulse Resp BP Pulse Ox
36.8 C 70 11 110/61 94
10/25/24 09:19 10/25/24 09:22 10/25/24 09:22 10/25/24 09:22 10/25/24 09:22
Lab Results
10/25/24 04:59
10/25/24 04:59
PT 14.8 Sec (11.4-14.6) H 10/23/24 17:34
INR 1.11 10/23/24 17:34
APTT 37.2 Sec (23.4-35.0) H 10/23/24 17:34
Sodium 133 mmol/L (135-145) L 10/25/24 04:59
Potassium 3.6 mmol/L (3.5-5.1) 10/25/24 04:59
BUN 28 mg/dl (9-20) H 10/25/24 04:59
Glucose 105 mg/dl (70-99) H 10/25/24 04:59
Calcium 8.1 mg/dl (8.4-10.2) L 10/25/24 04:59
Ur Buprenorphine Negative (Negative) 10/25/24 09:31
Patient Allergies
atorvastatin calcium [From Lipitor] Allergy (Verified 10/23/24 13:39)
MUSCLE CRAMPS
levofloxacin [From Levaquin] Allergy (Verified 10/23/24 13:39)
ACHILLES CRAMPS
lisinopril Allergy (Verified 10/23/24 13:39)
Unknown
simvastatin Allergy (Verified 10/23/24 13:39)
AGITATION/ LEG ACHES
spironolactone [From Aldactone] Allergy (Verified 10/23/24 13:39)
gynecomastia
Medications
-
Active Medications
Generic Name Dose Route Start Last Admin
Trade Name Freq PRN Reason Stop Dose Admin
Acetaminophen 650 mg 10/23/24 20:51
Acetaminophen 325 Mg Tablet PO 11/20/24 20:50
Q4HPRN PRN
mild pain/SAMAYOA/temp> 100.4F
Allopurinol 100 mg 10/24/24 08:00 10/25/24 08:59
Allopurinol 100 Mg Tablet PO 11/21/24 07:59 100 mg
DAILY BESSY Administration
Artificial Tears 1 drops 10/23/24 22:00 10/25/24 08:59
Artificial Tears Pf (Refresh) 10 Drop Droperette BOTH EYES 11/20/24 21:59 1 drops
Q12 BESSY Administration
Aspirin 81 mg 10/23/24 22:00 10/24/24 22:06
Aspirin 81 Mg (Enteric Coated) Tablet PO 11/20/24 21:59 81 mg
HS BESSY Administration
Atenolol 25 mg 10/23/24 22:00 10/24/24 21:35
Atenolol 25 Mg Tablet PO 11/20/24 21:59 Not Given
HS BESSY
Bisacodyl 10 mg 10/23/24 20:51
Bisacodyl 10 Mg Rectal Suppository RECTAL 11/20/24 20:50
[id number] PRN
constipation
Citric Acid/Sodium Citrate 15 ml 10/23/24 22:00 10/24/24 21:05
Sodium Citrate/Citric Acid (Oral Solution) 30 Ml Cup PO 11/20/24 21:59 Not Given
BID BESSY
Cyclosporine 1 drops 10/23/24 22:00 10/25/24 09:00
Cyclosporine 0.05% (Ophthalmic Emulsion) 10 Drop Droperette BOTH EYES 11/20/24 21:59 1 drops
Q12 BESSY Administration
Docusate Sodium 100 mg 10/23/24 20:51
Docusate Sodium 100 Mg Capsule PO 11/20/24 20:50
DAILYPRN PRN
constipation
Ezetimibe 10 mg 10/24/24 08:00 10/24/24 10:09
Ezetimibe (Zetia) 10 Mg Tablet PO 11/21/24 07:59 10 mg
DAILY BESSY Administration
Eplerenone 25 mg 10/24/24 08:00 10/24/24 10:07
Eplerenone 25 Mg Tablet PO 11/21/24 07:59 Not Given
DAILY BESSY
Famotidine 20 mg 10/24/24 08:00 10/25/24 08:59
Famotidine 20 Mg Tablet PO 11/21/24 07:59 20 mg
DAILY BESSY Administration
Gabapentin 300 mg 10/24/24 12:00 10/24/24 15:31
Gabapentin 300 Mg Capsule PO 11/21/24 11:59 Not Given
NOON BESSY
Gabapentin 600 mg 10/23/24 22:00 10/24/24 22:06
Gabapentin 300 Mg Capsule PO 11/20/24 21:59 600 mg
HS BESSY Administration
Heparin Sodium 5,000 units 10/24/24 00:00 10/25/24 08:59
Heparin 5,000 Units/Ml 1 Ml Vial SC 11/21/24 00:00 5,000 units
Q8 BESSY Administration
Hydromorphone HCl 0.5 mg 10/24/24 17:27 10/25/24 08:33
Hydromorphone 0.5 Mg/0.5 Ml Syringe IV 11/07/24 07:45 0.5 mg
Q3HPRN PRN Administration
severe pain
Piperacillin Sod/Tazobactam Sod 3.375 gram in 50 mls @ 100 mls/hr 10/24/24 18:00 10/25/24 05:01
Zosyn IV 50 mls
Q6H BESSY Administration
Vancomycin HCl 1,500 mg/ 530 mls @ 353.333 mls/hr 10/25/24 06:00 10/25/24 06:35
Sodium Chloride IV 530 mls
Q24H BESSY Administration
Lactated Ringer's 1,000 mls @ 100 mls/hr 10/25/24 07:00 10/25/24 06:47
Lr IV 1,000 mls
.Q10H BESSY Administration
Doxycycline Hyclate 100 mg/ 260 mls @ 260 mls/hr 10/25/24 08:00 10/25/24 08:59
Sodium Chloride IV 260 mls
Q12H BESSY Administration
Ketorolac Tromethamine 15 mg 10/24/24 17:25 10/25/24 01:50
Ketorolac 15 Mg/Ml Injection IV 10/29/24 17:24 15 mg
Q8HPRN PRN Administration
moderate pain
Lidocaine 1 patch 10/24/24 11:45 10/25/24 08:58
Lidocaine 4% Topical Patch TOPICAL 11/21/24 11:44 1 patch
DAILY BESSY Administration
Protocol
Midodrine 5 mg 10/25/24 06:20
Midodrine 5 Mg Tablet PO 11/22/24 06:19
Q4HPRN PRN
sbp<90
Naloxone HCl 0.04 mg 10/24/24 11:47
Naloxone (0.4 Mg/Ml) 1 Ml Injection IV 11/21/24 11:46
Q2MPRN PRN
respiratory suppresion
Nitroglycerin 0.4 mg 10/23/24 20:51
Nitroglycerin 0.4 Mg Sl Tablet SL 11/20/24 20:50
[id number] PRN
chest pain/sob
Pantoprazole Sodium 40 mg 10/24/24 20:00 10/25/24 08:58
Pantoprazole Sodium 40 Mg/10 Ml Vial IV 11/21/24 19:59 40 mg
Q12 BESSY Administration
Patch Removal 0 patch 10/24/24 20:00 10/24/24 19:29
Remove Lidocaine Patch REMOVE 11/21/24 19:59 Not Given
DAILY@2000 BESSY
Polyethylene Glycol 17 grams 10/23/24 20:51
Polyethylene Glycol Powder 17 Grams Packet PO 11/20/24 20:50
DAILYPRN PRN
constipation
Rosuvastatin Calcium 40 mg 10/23/24 22:00 10/24/24 22:06
Rosuvastatin (Crestor) 40 Mg Tablet PO 11/20/24 21:59 40 mg
HS BESSY Administration
Senna/Docusate Sodium 1 tablet 10/23/24 20:51
Docusate W/Senna (Aspen-Colace) Tablet PO 11/20/24 20:50
BIDPRN PRN
constipation
Sodium Chloride 0 flush 10/23/24 20:00
Sodium Chloride 0.9% (Flush) Syringe IV 11/20/24 19:59
PER PROTOCOL BESSY
Sodium Chloride 0.9 ml 10/24/24 13:00
Sodium Chloride 0.9% (Preservative Free) 10 Ml Vial IV 11/21/24 12:59
Q2MPRN PRN
naloxone dilution
Sodium Chloride 10 ml 10/24/24 20:00 10/25/24 08:58
Sodium Chloride 0.9% (Preservative Free) 10 Ml Vial IV 11/21/24 19:59 10 ml
Q12 BESSY Administration
Sterile Water 10 ml 10/24/24 08:00 10/25/24 09:20
Sterile Water For Injection 10 Ml Vial IV 11/21/24 07:59 Not Given
Q24H BESSY
Home Medications
�Medication �Instructions �Recorded
atenolol 25 mg tablet 25 mg PO HS Blood Pressure 05/11/10
ezetimibe 10 mg tablet 10 mg PO DAILY High Cholesterol 05/11/10
aspirin 81 mg tablet,delayed 81 mg PO HS Blood Clot 03/26/15
release (Leni Low Dose Aspirin) Prevention/Tx
gabapentin 300 mg capsule 600 mg PO HS 07/29/18
clopidogrel 75 mg tablet 75 mg PO DAILY #90 tabs 08/03/18
nitroglycerin 0.4 mg sublingual 0.4 mg sublingual [id number] PRN 08/03/18
tablet chest pain/sob #25 tabs
eplerenone 25 mg tablet 25 mg PO DAILY Heart 07/09/19
Disease/Condition
acetaminophen 500 mg tablet 1,000 mg PO BID Pain 10/24/19
allopurinol 100 mg tablet 100 mg PO DAILY Gout 10/24/19
famotidine 20 mg tablet 20 mg PO DAILY Gastrointestinal 10/24/19
Issue
fluticasone propionate 50 2 spray intranasal HS Allergies 10/24/19
mcg/actuation nasal
spray,suspension
hydrochlorothiazide 12.5 mg tablet 12.5 mg PO DAILY 02/27/22
levomefolate--vitamins B12-B6 2.8 1 tab PO BID 02/27/22
mg-2 mg-25 mg tablet
ywwosmja-xhl-ozhgbm 5 mg-zeaxanth 1 ea PO NOON 02/27/22
1 mg-bilberry 7.5 mg-herbal
capsule (Macular Health Formula)
sodium citrate-citric acid 500 15 ml PO BID 02/27/22
mg-334 mg/5 mL oral solution
Medical Marijuana 10 mg PO QID 10/23/24
amlodipine 5 mg tablet 5 mg PO DAILY Blood Pressure 10/23/24
cyclosporine 0.05 % eye drops 1 drp BOTH EYES Q12H Eye Condition 10/23/24
diazepam 5 mg tablet (Valium) 5 mg PO TIDPRN PRN spasm 10/23/24
docusate sodium 100 mg capsule 100 mg PO DAILYPRN PRN constipation 10/23/24
(Colace)
gabapentin 300 mg capsule 300 mg PO NOON 10/23/24
oxycodone 5 mg tablet 5 mg PO Q6HPRN PRN severe Pain 10/23/24
peg 400-propylene glycol (PF) 0.4 1 drp BOTH EYES Q12H 10/23/24
%-0.3 % eye drops in a dropperette
(Systane (PF))
rosuvastatin 40 mg tablet 40 mg PO HS 10/23/24
Vital Signs and Labs
-
Vital Signs and Labs:
Vital Signs
Temp Pulse Resp BP Pulse Ox
36.8 C 70 11 110/61 94
10/25/24 09:19 10/25/24 09:22 10/25/24 09:22 10/25/24 09:22 10/25/24 09:22
Lab Results
10/25/24 04:59
10/25/24 04:59
PT 14.8 Sec (11.4-14.6) H 10/23/24 17:34
INR 1.11 10/23/24 17:34
APTT 37.2 Sec (23.4-35.0) H 10/23/24 17:34
Sodium 133 mmol/L (135-145) L 10/25/24 04:59
Potassium 3.6 mmol/L (3.5-5.1) 10/25/24 04:59
BUN 28 mg/dl (9-20) H 10/25/24 04:59
Glucose 105 mg/dl (70-99) H 10/25/24 04:59
Calcium 8.1 mg/dl (8.4-10.2) L 10/25/24 04:59
Ur Buprenorphine Negative (Negative) 10/25/24 09:31
Medications
-
Medications:
Generic Name Dose Route Start Last Admin
Trade Name Freq PRN Reason Stop Dose Admin
Acetaminophen 650 mg 10/23/24 20:51
Acetaminophen 325 Mg Tablet PO 11/20/24 20:50
Q4HPRN PRN
mild pain/SAMAYOA/temp> 100.4F
Allopurinol 100 mg 10/24/24 08:00 10/25/24 08:59
Allopurinol 100 Mg Tablet PO 11/21/24 07:59 100 mg
DAILY BESSY Administration
Artificial Tears 1 drops 10/23/24 22:00 10/25/24 08:59
Artificial Tears Pf (Refresh) 10 Drop Droperette BOTH EYES 11/20/24 21:59 1 drops
Q12 BESSY Administration
Aspirin 81 mg 10/23/24 22:00 10/24/24 22:06
Aspirin 81 Mg (Enteric Coated) Tablet PO 11/20/24 21:59 81 mg
HS BESSY Administration
Atenolol 25 mg 10/23/24 22:00 10/24/24 21:35
Atenolol 25 Mg Tablet PO 11/20/24 21:59 Not Given
HS BESSY
Bisacodyl 10 mg 10/23/24 20:51
Bisacodyl 10 Mg Rectal Suppository RECTAL 11/20/24 20:50
[id number] PRN
constipation
Citric Acid/Sodium Citrate 15 ml 10/23/24 22:00 10/24/24 21:05
Sodium Citrate/Citric Acid (Oral Solution) 30 Ml Cup PO 11/20/24 21:59 Not Given
BID BESSY
Cyclosporine 1 drops 10/23/24 22:00 10/25/24 09:00
Cyclosporine 0.05% (Ophthalmic Emulsion) 10 Drop Droperette BOTH EYES 11/20/24 21:59 1 drops
Q12 BESSY Administration
Docusate Sodium 100 mg 10/23/24 20:51
Docusate Sodium 100 Mg Capsule PO 11/20/24 20:50
DAILYPRN PRN
constipation
Ezetimibe 10 mg 10/24/24 08:00 10/24/24 10:09
Ezetimibe (Zetia) 10 Mg Tablet PO 11/21/24 07:59 10 mg
DAILY BESSY Administration
Eplerenone 25 mg 10/24/24 08:00 10/24/24 10:07
Eplerenone 25 Mg Tablet PO 11/21/24 07:59 Not Given
DAILY BESSY
Famotidine 20 mg 10/24/24 08:00 10/25/24 08:59
Famotidine 20 Mg Tablet PO 11/21/24 07:59 20 mg
DAILY BESSY Administration
Gabapentin 300 mg 10/24/24 12:00 10/24/24 15:31
Gabapentin 300 Mg Capsule PO 11/21/24 11:59 Not Given
NOON BESSY
Gabapentin 600 mg 10/23/24 22:00 10/24/24 22:06
Gabapentin 300 Mg Capsule PO 11/20/24 21:59 600 mg
HS BESSY Administration
Heparin Sodium 5,000 units 10/24/24 00:00 10/25/24 08:59
Heparin 5,000 Units/Ml 1 Ml Vial SC 11/21/24 00:00 5,000 units
Q8 BESSY Administration
Hydromorphone HCl 0.5 mg 10/24/24 17:27 10/25/24 08:33
Hydromorphone 0.5 Mg/0.5 Ml Syringe IV 11/07/24 07:45 0.5 mg
Q3HPRN PRN Administration
severe pain
Piperacillin Sod/Tazobactam Sod 3.375 gram in 50 mls @ 100 mls/hr 10/24/24 18:00 10/25/24 05:01
Zosyn IV 50 mls
Q6H BESSY Administration
Vancomycin HCl 1,500 mg/ 530 mls @ 353.333 mls/hr 10/25/24 06:00 10/25/24 06:35
Sodium Chloride IV 530 mls
Q24H BESSY Administration
Lactated Ringer's 1,000 mls @ 100 mls/hr 10/25/24 07:00 10/25/24 06:47
Lr IV 1,000 mls
.Q10H BESSY Administration
Doxycycline Hyclate 100 mg/ 260 mls @ 260 mls/hr 10/25/24 08:00 10/25/24 08:59
Sodium Chloride IV 260 mls
Q12H BESSY Administration
Ketorolac Tromethamine 15 mg 10/24/24 17:25 10/25/24 01:50
Ketorolac 15 Mg/Ml Injection IV 10/29/24 17:24 15 mg
Q8HPRN PRN Administration
moderate pain
Lidocaine 1 patch 10/24/24 11:45 10/25/24 08:58
Lidocaine 4% Topical Patch TOPICAL 11/21/24 11:44 1 patch
DAILY BESSY Administration
Protocol
Midodrine 5 mg 10/25/24 06:20
Midodrine 5 Mg Tablet PO 11/22/24 06:19
Q4HPRN PRN
sbp<90
Naloxone HCl 0.04 mg 10/24/24 11:47
Naloxone (0.4 Mg/Ml) 1 Ml Injection IV 11/21/24 11:46
Q2MPRN PRN
respiratory suppresion
Nitroglycerin 0.4 mg 10/23/24 20:51
Nitroglycerin 0.4 Mg Sl Tablet SL 11/20/24 20:50
[id number] PRN
chest pain/sob
Pantoprazole Sodium 40 mg 10/24/24 20:00 10/25/24 08:58
Pantoprazole Sodium 40 Mg/10 Ml Vial IV 11/21/24 19:59 40 mg
Q12 BESSY Administration
Patch Removal 0 patch 10/24/24 20:00 10/24/24 19:29
Remove Lidocaine Patch REMOVE 11/21/24 19:59 Not Given
DAILY@2000 BESSY
Polyethylene Glycol 17 grams 10/23/24 20:51
Polyethylene Glycol Powder 17 Grams Packet PO 11/20/24 20:50
DAILYPRN PRN
constipation
Rosuvastatin Calcium 40 mg 10/23/24 22:00 10/24/24 22:06
Rosuvastatin (Crestor) 40 Mg Tablet PO 11/20/24 21:59 40 mg
HS BESSY Administration
Senna/Docusate Sodium 1 tablet 10/23/24 20:51
Docusate W/Senna (Aspen-Colace) Tablet PO 11/20/24 20:50
BIDPRN PRN
constipation
Sodium Chloride 0 flush 10/23/24 20:00
Sodium Chloride 0.9% (Flush) Syringe IV 11/20/24 19:59
PER PROTOCOL BESSY
Sodium Chloride 0.9 ml 10/24/24 13:00
Sodium Chloride 0.9% (Preservative Free) 10 Ml Vial IV 11/21/24 12:59
Q2MPRN PRN
naloxone dilution
Sodium Chloride 10 ml 10/24/24 20:00 10/25/24 08:58
Sodium Chloride 0.9% (Preservative Free) 10 Ml Vial IV 11/21/24 19:59 10 ml
Q12 BESSY Administration
Sterile Water 10 ml 10/24/24 08:00 10/25/24 09:20
Sterile Water For Injection 10 Ml Vial IV 11/21/24 07:59 Not Given
Q24H BESSY
Home Medications
-
Home Medications
atenolol 25 mg tablet 25 mg PO HS Blood Pressure 05/11/10
ezetimibe 10 mg tablet 10 mg PO DAILY High Cholesterol 05/11/10
aspirin 81 mg tablet,delayed release (Leni Low Dose Aspirin) 81 mg PO HS Blood Clot Prevention/Tx 03/26/15
gabapentin 300 mg capsule 600 mg PO HS 07/29/18
clopidogrel 75 mg tablet 75 mg PO DAILY #90 tabs 08/03/18
nitroglycerin 0.4 mg sublingual tablet 0.4 mg sublingual [id number] PRN chest pain/sob #25 tabs 08/03/18
eplerenone 25 mg tablet 25 mg PO DAILY Heart Disease/Condition 07/09/19
acetaminophen 500 mg tablet 1,000 mg PO BID Pain 10/24/19
allopurinol 100 mg tablet 100 mg PO DAILY Gout 10/24/19
famotidine 20 mg tablet 20 mg PO DAILY Gastrointestinal Issue 10/24/19
fluticasone propionate 50 mcg/actuation nasal spray,suspension 2 spray intranasal HS Allergies 10/24/19
hydrochlorothiazide 12.5 mg tablet 12.5 mg PO DAILY 02/27/22
levomefolate--vitamins B12-B6 2.8 mg-2 mg-25 mg tablet 1 tab PO BID 02/27/22
ruoxlldf-wpz-sgicls 5 mg-zeaxanth 1 mg-bilberry 7.5 mg-herbal capsule (Macular Health Formula) 1 ea PO NOON 02/27/22
sodium citrate-citric acid 500 mg-334 mg/5 mL oral solution 15 ml PO BID 02/27/22
Medical Marijuana 10 mg PO QID 10/23/24
amlodipine 5 mg tablet 5 mg PO DAILY Blood Pressure 10/23/24
cyclosporine 0.05 % eye drops 1 drp BOTH EYES Q12H Eye Condition 10/23/24
diazepam 5 mg tablet (Valium) 5 mg PO TIDPRN PRN spasm 10/23/24
docusate sodium 100 mg capsule (Colace) 100 mg PO DAILYPRN PRN constipation 10/23/24
gabapentin 300 mg capsule 300 mg PO NOON 10/23/24
oxycodone 5 mg tablet 5 mg PO Q6HPRN PRN severe Pain 10/23/24
peg 400-propylene glycol (PF) 0.4 %-0.3 % eye drops in a dropperette (Systane (PF)) 1 drp BOTH EYES Q12H 10/23/24
rosuvastatin 40 mg tablet 40 mg PO HS 10/23/24
--- NOTE | 2024-10-25 11:05 | CON.ID ---
Consultation
-
Date/Time Consultation Requested: 10/25/24 6:00
Date/Time Consultation Performed: 10/25/24 11:05
Requesting Provider: Dr Montiel
Performing Provider: Dr Bermudez
Reason for Consultation: high procalcitonin, confusion, L knee swelling
Chief Complaint / Past History
Chief Complaint
increased pain in the left hip
History of Present Illness
Mr Rose is a 79 year old male whit history of CAD, C diff who presented here 10/23 for increased pain in the left arm and knee. No fevers or chills. Of note with recent fall and impacted L humerus head/neck without plans for surgical management,
using a sling. Also had injection into the right knee of hymovis (hyaluronate derivative) on 10/22 for pain in the left knee. believes right knee increased in size prior to presentation here. He has also had increasing pain in the L hip.
has noted confusion. He spends minimal time in the yard, no reported tick bites for years, no indoor-outdoor pets.
Since arrival here patient has been afebrile, bp overall stable, wbc initially 11.4 normalized on HD 2, hgb 11.5, plt 139, L shift is noted on arrival but has resolved today, na initially 126 now 133, cr initially 1.6 now 1.1 approximately his
baseline, lactic acid yesterday 1.3,
He underwent aspiration of the knee joint showing CPPD crystals which orthopedics comment is a known complication of the injection. There was some concern for a component of intrabursal injection as well.
Past History
Additional Past Medical History:
CAD
GERD
HTN
Hypercholesterolemia
CA x2
Renal insufficiency
Lumbar disc disease with sciatica
kidney stone
Neuropathy
Colitis
Diverticulitis
Ulcers
skin cancer
Hemorrhoid
C-diff
Additional Past Surgical History:
CABG
PTCA
left knee
cervical fusion
renal stents
vasectomy
mastectomy
Allergy History:
atorvastatin calcium [From Lipitor] Allergy (Verified 10/23/24 13:39)
MUSCLE CRAMPS
levofloxacin [From Levaquin] Allergy (Verified 10/23/24 13:39)
ACHILLES CRAMPS
lisinopril Allergy (Verified 10/23/24 13:39)
Unknown
simvastatin Allergy (Verified 10/23/24 13:39)
AGITATION/ LEG ACHES
spironolactone [From Aldactone] Allergy (Verified 10/23/24 13:39)
gynecomastia
Medications Reviewed: Yes
Social History
Tobacco: Former Smoker
Alcohol: Former
Personal:
Family History
Family History: Not Pertinent
Review of Systems
Review of Systems
General: Negative Fever or Chills
All systems: All other systems were reviewed and were negative
Vital Signs
Temp Pulse Resp BP Pulse Ox
98.2 F 70 11 110/61 94
10/25/24 09:19 10/25/24 09:22 10/25/24 09:22 10/25/24 09:22 10/25/24 09:22
Physical Exam
Physical Exam
Constitutional: No Acute Distress and Chronically Ill
Cardiovascular: Regular Rate and S1/S2; Negative Murmur or Rub
Pulmonary: Clear and Symmetric; Negative Wheezes, Rales or Rhonchi
Gastrointestinal: Soft, Non Tender, Non Distended and Normal Bowel Sounds
Musculoskeletal: Other (left knee, not swollen, no erythema, no tenderness with gentle palpation at this time)
Skin: Warm and Dry; Negative Rash or Jaundice
Neurological: Awake
Psychological: Agitated
Lab / Diagnostic Study Results
10/25/24 04:59
10/25/24 04:59
Abs Immat Gran (auto) 0.0 10^3/uL (0-0.05) 10/25/24 04:59
Absolute Neuts (auto) 5.0 10^3/uL (1.4-6.5) 10/25/24 04:59
Absolute Lymphs (auto) 1.1 10^3/uL (1.2-3.4) L 10/25/24 04:59
Absolute Monos (auto) 1.1 10^3/uL (0.1-0.6) H 10/25/24 04:59
Absolute Basos (auto) 0.0 10^3/uL (0-0.2) 10/25/24 04:59
Immature Gran % 0.3 % (0-0.5) 10/25/24 04:59
Neutrophils % 68.1 % (42.2-75.2) 10/25/24 04:59
Lymphocytes % 15.4 % (20.5-51.1) L 10/25/24 04:59
Monocytes % 15.0 % (1.7-9.3) H 10/25/24 04:59
Eosinophils % 0.9 % (0-6) 10/25/24 04:59
Basophils % 0.3 % (0-2) 10/25/24 04:59
PT 14.8 Sec (11.4-14.6) H 10/23/24 17:34
INR 1.11 10/23/24 17:34
Lactic Acid 1.3 mmol/L (0.7-2.0) 10/24/24 18:31
Procalcitonin 1.22 ng/ml (0.0-0.25) H 10/25/24 04:59
Ur Squamous Epith Cells 3-5 /LPF (Few) 10/23/24 16:36
Microbiology Results
Micro:
10/25/24 09:42 Blood Parasites Smear - Pending
Blood/Venous
10/24/24 13:14 Body Fluid Culture - Pending
Joint Fluid Gram Stain - Preliminary
10/23/24 16:36 Urine Culture - Final
Urine NO GROWTH
10/24/24 13:15 Anaerobic Culture - Pending
Joint Fluid
10/23/24 17:34 Influenza Types A & B (SARBJIT) - Final
Nasal Swab Negative for Influenza A & B, NAAT
Negative results must be combined with clinical observations
and patient history.
Nucleic Acid Amplification test (NAAT)performed on the
[employer] NOW platform.
Assessment / Plan
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
History of C difficile 2009
Elevated CPK/rhabdo
Pain lumbar spine
- conducted a literature review, 2020 systemic review confirms that pseudoseptic arthrititis has been described in a number of cases within about 5 days of injection of hyaluronic acid derivatives; severe pain, local swelling are common, wbc counts
have been >50K in some cases and are typically neutrophil predominant similar to this case
- LDH may relate to tissue injuries
- Procalcitonin is not validated for septic joints and has been well described to be elevated in a variety of stress induced states including elevated CPK. It is not reliable in either of these settings and cannot be used to assess for septic joint
at this time.
- allopurinol is not a typical treatment for pseudogout/CPPD disease
- currently on ketorolac and recent receipt of opiates
- could consider colchicine until the attack abates; oral nsaids also acceptable, would be cautious with ketoralac
- patient did receive antibiotics prior to arthrocentesis, gram stain negative; knee is not swollen or particularly painful today. Overall my clinical suspicion for concomitant septic joint is low.
- clinical picture is not typical of lyme disease and there is a compelling alternative diagnosis with positive confirmatory testing; I do not see a need for lyme PCR at this time given that crystals were seen on arthrocentesis; a single serology
now rather than two is sufficient cancelled the repeat. Patient with minimal exposure history - stopped doxycycline.
- can continue vanc/zosyn while following synovial fluid culture to 2 days, if negative as expected would stop antibiotics tomorrow
Care Review
Plan reviewed with: Physician (Dr Montiel - trevor, pain, literature review)
[2024-10-25] MEDS: BICITRA PO (11:33)
[2024-10-25] MEDS: ZETIA 10 MG PO (12:12)
[2024-10-25] MEDS: NEURONTIN 300 MG PO (12:13)
[2024-10-25] MEDS: COLCHICINE 1.2 MG PO (13:19)
[2024-10-25] MEDS: ULTRAM 25 MG PO (17:03)
--- NOTE | 2024-10-25 17:50 | W.PN.UPDATE ---
Update Note
Progress Note Update
red itchy rash as per RN on the back - with low suspicion for infection - the safest is to hold abx, colchicine and give one dose of Solumedrol (as also will help with CPPD)
[2024-10-25] MEDS: SOLU-MEDROL PF 40 MG IV (18:52)
[2024-10-25] MEDS: VITAMIN B1 100 MG PO (19:22)
[2024-10-25] MEDS: ProAmatine 5 MG PO (19:23)
[2024-10-25] MEDS: BICITRA 15 ML PO (20:19)
[2024-10-25] MEDS: NEURONTIN 600 MG PO (21:44)
[2024-10-25] MEDS: ASPIR LOW (ENTERIC COATED) 81 MG PO (21:44)
[2024-10-25] MEDS: DILAUDID 0.25 MG IV (22:20)
[2024-10-25] MEDS: REFRESH EYE DROPS (PF) 1 DROPS OPHTH (23:41)
[2024-10-26] VITALS (7 sets, daily range): BP systolic 107–153; BP diastolic 60–74
[2024-10-26] MEDS: DILAUDID 0.5 MG IV ×2 (01:02→03:56)
[2024-10-26] MEDS: LR 1000 IV ×3 (06:02→22:45)
[2024-10-26 07:54] LABS: % Immature Granulocytes 0.3 % (0-0.5); % Lymphocytes 10.8 % (20.5-51.1); % Monocytes 8.4 % (1.7-9.3); % Neutrophils 80.5 % (42.2-75.2); Absolute Lymphocytes 0.4 10^3/uL (1.2-3.4); Absolute Monocytes 0.3 10^3/uL (0.1-0.6); Hematocrit 28.9 % (39.0-52.0); Hemoglobin 10.5 g/dL (13.0-18.0); Mean Corp Hgb Conc. 36.3 g/dL (33.0-37.0); Mean Corpuscular Hgb 32.3 pg (27.0-31.0); Mean Corpuscular Volume 88.9 fL (80.0-94.0); Nucleated Red Blood Cells % 0 % (-); Platelet Count 157 10^3/uL (130-400); Red Blood Cell Count 3.25 10^6/uL (4.70-6.10); Red Cell Dist. Width 11.5 % (11.5-14.5); White Blood Cell Count 3.7 10^3/uL (4.8-10.8)
[2024-10-26 08:25] LABS: ALT (SGPT) 143 U/L (0-50); AST (SGOT) 255 U/L (17-59); Albumin 2.9 g/dl (3.5-5.0); Alkaline Phosphatase 108 U/L (38-126); Blood Urea Nitrogen 24 mg/dl (9-20); Calcium 8.3 mg/dl (8.4-10.2); Carbon Dioxide 23 mmol/L (22-30); Chloride 101 mmol/L (98-107); Creatine Phosphokinase 1214 U/L (55-170); Direct Bilirubin 0.8 mg/dl (0.0-0.4); Estimated Creatinine Clearance 74 ml/min; Glucose 156 mg/dl (70-99); LDH 366 U/L (120-246); Potassium 3.7 mmol/L (3.5-5.1); Sodium 136 mmol/L (135-145); Total Bilirubin 2.1 mg/dl (0.2-1.3); Total Protein 5.6 g/dl (6.3-8.2); eGFR > 60.00
[2024-10-26] MEDS: VITAMIN B1 100 MG PO ×2 (09:00→20:11)
[2024-10-26] MEDS: REFRESH EYE DROPS (PF) 1 DROPS BOTH EYES ×2 (09:00→19:54)
[2024-10-26] MEDS: HEPARIN 5000 UNITS SC ×3 (09:00→23:15)
[2024-10-26] MEDS: ZETIA 10 MG PO (09:00)
[2024-10-26] MEDS: RESTASIS 0.05% OPHTHALMIC EMULSION 1 DROPS BOTH EYES ×2 (09:17→19:55)
[2024-10-26] MEDS: PEPCID 20 MG PO (09:18)
[2024-10-26] MEDS: PROTONIX IV 40 MG IV ×2 (09:19→19:54)
[2024-10-26] MEDS: NSS (PRESERVATIVE FREE) 10 ML IV ×2 (09:19→19:54)
[2024-10-26] MEDS: LIDOCAINE 4% PATCH 1 PATCH TOPICAL (09:19)
[2024-10-26] MEDS: STERILE WATER FOR INJECTION IV (09:20)
--- NOTE | 2024-10-26 09:37 | W.PN.UPDATE ---
Update Note
Progress Note Update
Assessment:
Mr. Rose more alert and coherent on examination this morning. Able to answer questions appropriately and provide more detailed answers than yesterday. Denies any pain in the left knee, but having pain in the left shoulder and lower back. Sling is
not in place on LUE.
Left shoulder: Swelling improved from yesterday. Ecchymosis about entire UE. Able to passively move elbow and wrist without pain. N/v intact distally.
Left knee: Mild effusion, not significant enough to consider repeat aspiration. No pain with active or passive ROM with flexion to 130 degrees today. Calf soft and non tender to palpation.
Fluid cultures with no growth 18-24 hours.
Plan:
1. Left shoulder proximal humerus fracture - continue with sling immobilization. May remove in bed, but should be in place when up and moving around. Encouraged him to work on elbow/wrist/hand ROM. Will benefit from PT/OT when medically able.
NWB LUE.
2. Left knee pseudoseptic reaction to hymovis vs. pseudogout flare - believe the timing of injection and onset of worsening confusion are coincidental. There is minimal effusion on exam, no pain, and full ROM, so very low suspicion for septic
joint. Continue with mark wrap and medication management. Will continue to follow cultures.
3. Left hip pain - resolved.
--- NOTE | 2024-10-26 10:00 | CON.NS ---
Chief Complaint
-
Low back pain
History of Present Illness
This is a 79-year-old male admitted with a chief complaint of back pain and left leg pain. Since being admitted his left leg pain has resolved. He still complains of back pain. Hospital course was complicated by encephalopathy. Currently he is
awake and alert however unable provide much history.
Review of Systems
-
10 point review of systems not able to be obtained secondary patient's mental status
Medication and Allergies
Home Medications
Home Medications
�Medication �Instructions �Recorded
atenolol 25 mg tablet 25 mg PO HS Blood Pressure 05/11/10
ezetimibe 10 mg tablet 10 mg PO DAILY High Cholesterol 05/11/10
aspirin 81 mg tablet,delayed 81 mg PO HS Blood Clot 03/26/15
release (Leni Low Dose Aspirin) Prevention/Tx
gabapentin 300 mg capsule 600 mg PO HS 07/29/18
clopidogrel 75 mg tablet 75 mg PO DAILY #90 tabs 08/03/18
nitroglycerin 0.4 mg sublingual 0.4 mg sublingual [id number] PRN 08/03/18
tablet chest pain/sob #25 tabs
eplerenone 25 mg tablet 25 mg PO DAILY Heart 07/09/19
Disease/Condition
acetaminophen 500 mg tablet 1,000 mg PO BID Pain 10/24/19
allopurinol 100 mg tablet 100 mg PO DAILY Gout 10/24/19
famotidine 20 mg tablet 20 mg PO DAILY Gastrointestinal 10/24/19
Issue
fluticasone propionate 50 2 spray intranasal HS Allergies 10/24/19
mcg/actuation nasal
spray,suspension
hydrochlorothiazide 12.5 mg tablet 12.5 mg PO DAILY 02/27/22
levomefolate--vitamins B12-B6 2.8 1 tab PO BID 02/27/22
mg-2 mg-25 mg tablet
loywgwnk-ywo-qkktel 5 mg-zeaxanth 1 ea PO NOON 02/27/22
1 mg-bilberry 7.5 mg-herbal
capsule (Macular Health Formula)
sodium citrate-citric acid 500 15 ml PO BID 02/27/22
mg-334 mg/5 mL oral solution
Medical Marijuana 10 mg PO QID 10/23/24
amlodipine 5 mg tablet 5 mg PO DAILY Blood Pressure 10/23/24
cyclosporine 0.05 % eye drops 1 drp BOTH EYES Q12H Eye Condition 10/23/24
diazepam 5 mg tablet (Valium) 5 mg PO TIDPRN PRN spasm 10/23/24
docusate sodium 100 mg capsule 100 mg PO DAILYPRN PRN constipation 10/23/24
(Colace)
gabapentin 300 mg capsule 300 mg PO NOON 10/23/24
oxycodone 5 mg tablet 5 mg PO Q6HPRN PRN severe Pain 10/23/24
peg 400-propylene glycol (PF) 0.4 1 drp BOTH EYES Q12H 10/23/24
%-0.3 % eye drops in a dropperette
(Systane (PF))
rosuvastatin 40 mg tablet 40 mg PO HS 10/23/24
Allergies
Allergies
Allergy/AdvReac Type Severity Reaction Status Date / Time
atorvastatin calcium Allergy MUSCLE Verified 10/23/24 13:39
[From Lipitor] CRAMPS
levofloxacin [From Levaquin] Allergy ACHILLES Verified 10/23/24 13:39
CRAMPS
lisinopril Allergy Unknown Verified 10/23/24 13:39
simvastatin Allergy AGITATION/ Verified 10/23/24 13:39
LEG ACHES
spironolactone Allergy gynecomasti Verified 10/23/24 13:39
[From Aldactone] a
Physical Exam
-
Exam:
Full upper extremity strength however limited with left proximal upper extremity motor testing due to fracture at sling. Bilateral lower extremity show 5 out of 5 strength
Sensation is intact
Reflexes diminished lower extremities
CT lumbar spine showsIMPRESSION:
There is multilevel lumbar degenerative disc disease as outlined above.
Old 90% anterior wedge compression fracture of T12
Mild lumbar dextroscoliosis
Problems
-
Problem Status Onset Code
Closed left humeral fracture S42.302A
Hyponatremia E87.1
VIJAY (acute kidney injury) N17.9
Assessment / Plan
-
Low back pain
1. Awaiting MRI of lumbar spine
2. Notify neurosurgery once completed
[2024-10-26] MEDS: BICITRA 15 ML PO ×2 (10:25→19:51)
[2024-10-26] MEDS: ULTRAM 25 MG PO ×2 (10:44→16:46)
--- NOTE | 2024-10-26 10:47 | W.PN.NEURO.1 ---
Today's Communication / Plan
-
.
Subjective/Objective
Subjective Data
Date of Service: October 26, 2024
Neurology follow-up note.
24-hour events, hypotensive in the evening down to 88/61, afebrile.
Mr. Collier continues to complain about left shoulder pain. He denies having sensory symptoms in his left hand.
MAR: Hydromorphone 0.25 mg given on 10/25/24 at 22:20, 0.5 mg given on 10/26/2024 at 1:02 and 3:56 am.
Brain MRI is pending
LAbs: Na-136
PMH: Cervical myelopathy/ h/o cervical central spinal canal stenosis, LS radiculopathy, T12 chronic compression fracture, PAD, CAD, HTN, DLP, CKD, GERD, left humeral fracture, polyneuropathy, diverticulosis, Nephrolithiasis
PSH: L knee arthrocentesis, bilateral cataract surgery, C4-C7 ACDF, CABG, mastectomy, b/l renal artery stents, left knee arthroplasty,
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
FH: Not contributory to current presentation
All: Statins, lisinopril, Levaquin, spironolactone,
ROS: Positive for left arm pain, left knee pain, lower back pain negative for headache, change in vision
General: Well developed. In no acute distress.
Cardio: Regular rate and rhythm without murmur. Extremities are without cyanosis or edema.
Neuro:
Mental Status: Awake, oriented to name, not to age, month or year. Poor attention follows simple requests intermittently. Nonfluent. No hemineglect
Cranial Nerves: Pupils are equally round, surgical EOMs full. BTT BL No ptosis. No nystagmus. Face symmetric. Impaired hearing AU. No dysarthria.
Motor: Moves all limbs antigravity. Pain related left proximal arm weakness. Left wrist dorsiflexion�at least 4 out of 5
Reflexes: Negative grasp bilaterally
Sensory: Limited exam due to poor attention
Coordination: No tremors, clonic movements
Gait: deferred
Assessment and Plan:
I. Multifactorial encephalopathy (metabolic, toxic (opioids), vascular).
II. Hyponatremia, resolved
III. History of cervical central spinal canal stenosis.
-Avoid cerebral hypoperfusion
-Brain MRI wo dale
-Avoid opioids, benzodiazepines and anticholinergic medication
-Continue thiamine
-Will follow
I personally reviewed all radiology and labs along with past medical records pertinent to current medical problems. Total time spent in patient care is 36 minutes.
Thank you for allowing us to participate in the care of this patient. We will continue to follow. Please do not hesitate to contact us with any questions or concerns.
Objective Data
Vital Signs
Temp Pulse Resp BP Pulse Ox
36.3 C 78 18 133/73 95
10/26/24 07:20 10/26/24 07:20 10/26/24 07:20 10/26/24 07:20 10/26/24 07:20
Lab Results
10/26/24 07:32
10/26/24 07:32
PT 14.8 Sec (11.4-14.6) H 10/23/24 17:34
INR 1.11 10/23/24 17:34
APTT 37.2 Sec (23.4-35.0) H 10/23/24 17:34
Sodium 136 mmol/L (135-145) 10/26/24 07:32
Potassium 3.7 mmol/L (3.5-5.1) 10/26/24 07:32
BUN 24 mg/dl (9-20) H 10/26/24 07:32
Glucose 156 mg/dl (70-99) H 10/26/24 07:32
Calcium 8.3 mg/dl (8.4-10.2) L 10/26/24 07:32
Ur Buprenorphine Negative (Negative) 10/25/24 09:31
Patient Allergies
atorvastatin calcium [From Lipitor] Allergy (Verified 10/23/24 13:39)
MUSCLE CRAMPS
levofloxacin [From Levaquin] Allergy (Verified 10/23/24 13:39)
ACHILLES CRAMPS
lisinopril Allergy (Verified 10/23/24 13:39)
Unknown
simvastatin Allergy (Verified 10/23/24 13:39)
AGITATION/ LEG ACHES
spironolactone [From Aldactone] Allergy (Verified 10/23/24 13:39)
gynecomastia
Vital Signs and Labs
-
Vital Signs and Labs:
Vital Signs
Temp Pulse Resp BP Pulse Ox
36.3 C 78 18 133/73 95
10/26/24 07:20 10/26/24 07:20 10/26/24 07:20 10/26/24 07:20 10/26/24 07:20
Lab Results
10/26/24 07:32
10/26/24 07:32
PT 14.8 Sec (11.4-14.6) H 10/23/24 17:34
INR 1.11 10/23/24 17:34
APTT 37.2 Sec (23.4-35.0) H 10/23/24 17:34
Sodium 136 mmol/L (135-145) 10/26/24 07:32
Potassium 3.7 mmol/L (3.5-5.1) 10/26/24 07:32
BUN 24 mg/dl (9-20) H 10/26/24 07:32
Glucose 156 mg/dl (70-99) H 10/26/24 07:32
Calcium 8.3 mg/dl (8.4-10.2) L 10/26/24 07:32
Ur Buprenorphine Negative (Negative) 10/25/24 09:31
Medications
-
Medications:
Generic Name Dose Route Start Last Admin
Trade Name Freq PRN Reason Stop Dose Admin
Acetaminophen 650 mg 10/23/24 20:51
Acetaminophen 325 Mg Tablet PO 11/20/24 20:50
Q4HPRN PRN
mild pain/SAMAYOA/temp> 100.4F
Allopurinol 100 mg 10/24/24 08:00 10/25/24 08:59
Allopurinol 100 Mg Tablet PO 11/21/24 07:59 100 mg
DAILY BESSY Administration
Artificial Tears 1 drops 10/23/24 22:00 10/26/24 09:00
Artificial Tears Pf (Refresh) 10 Drop Droperette BOTH EYES 11/20/24 21:59 1 drops
Q12 BESSY Administration
Artificial Tears 1 drops 10/25/24 21:54 10/25/24 23:41
Artificial Tears Pf (Refresh) 10 Drop Droperette OPHTH 11/22/24 21:53 1 drops
QIDPRN PRN Administration
dry eyes
Aspirin 81 mg 10/23/24 22:00 10/25/24 21:44
Aspirin 81 Mg (Enteric Coated) Tablet PO 11/20/24 21:59 81 mg
HS BESSY Administration
Atenolol 25 mg 10/23/24 22:00 10/24/24 21:35
Atenolol 25 Mg Tablet PO 11/20/24 21:59 Not Given
HS BESSY
Bisacodyl 10 mg 10/23/24 20:51
Bisacodyl 10 Mg Rectal Suppository RECTAL 11/20/24 20:50
[id number] PRN
constipation
Citric Acid/Sodium Citrate 15 ml 10/23/24 22:00 10/26/24 10:25
Sodium Citrate/Citric Acid (Oral Solution) 30 Ml Cup PO 11/20/24 21:59 15 ml
BID BESSY Administration
Cyclosporine 1 drops 10/23/24 22:00 10/26/24 09:17
Cyclosporine 0.05% (Ophthalmic Emulsion) 10 Drop Droperette BOTH EYES 11/20/24 21:59 1 drops
Q12 BESSY Administration
Docusate Sodium 100 mg 10/23/24 20:51
Docusate Sodium 100 Mg Capsule PO 11/20/24 20:50
DAILYPRN PRN
constipation
Ezetimibe 10 mg 10/24/24 08:00 10/26/24 09:00
Ezetimibe (Zetia) 10 Mg Tablet PO 11/21/24 07:59 10 mg
DAILY BESSY Administration
Eplerenone 25 mg 10/24/24 08:00 10/24/24 10:07
Eplerenone 25 Mg Tablet PO 11/21/24 07:59 Not Given
DAILY BESSY
Famotidine 20 mg 10/24/24 08:00 10/26/24 09:18
Famotidine 20 Mg Tablet PO 11/21/24 07:59 20 mg
DAILY BESSY Administration
Gabapentin 300 mg 10/24/24 12:00 10/25/24 12:13
Gabapentin 300 Mg Capsule PO 11/21/24 11:59 300 mg
NOON BESSY Administration
Gabapentin 600 mg 10/23/24 22:00 10/25/24 21:44
Gabapentin 300 Mg Capsule PO 11/20/24 21:59 600 mg
HS BESSY Administration
Heparin Sodium 5,000 units 10/24/24 00:00 10/26/24 09:00
Heparin 5,000 Units/Ml 1 Ml Vial SC 11/21/24 00:00 5,000 units
Q8 BESSY Administration
Hydromorphone HCl 0.5 mg 10/24/24 17:27 10/26/24 03:56
Hydromorphone 0.5 Mg/0.5 Ml Syringe IV 11/07/24 07:45 0.5 mg
Q3HPRN PRN Administration
severe pain
Piperacillin Sod/Tazobactam Sod 3.375 gram in 50 mls @ 100 mls/hr 10/24/24 18:00 10/25/24 17:03
Zosyn IV 50 mls
Q6H BESSY Administration
Vancomycin HCl 1,500 mg/ 530 mls @ 353.333 mls/hr 10/25/24 06:00 10/25/24 06:35
Sodium Chloride IV 530 mls
Q24H BESSY Administration
Lactated Ringer's 1,000 mls @ 100 mls/hr 10/25/24 07:00 10/26/24 06:02
Lr IV 1,000 mls
.Q10H BESSY Administration
Lidocaine 1 patch 10/24/24 11:45 10/26/24 09:19
Lidocaine 4% Topical Patch TOPICAL 11/21/24 11:44 1 patch
DAILY BESSY Administration
Protocol
Midodrine 5 mg 10/25/24 06:20 10/25/24 19:23
Midodrine 5 Mg Tablet PO 11/22/24 06:19 5 mg
Q4HPRN PRN Administration
sbp<90
Naloxone HCl 0.04 mg 10/24/24 11:47
Naloxone (0.4 Mg/Ml) 1 Ml Injection IV 11/21/24 11:46
Q2MPRN PRN
respiratory suppresion
Nitroglycerin 0.4 mg 10/23/24 20:51
Nitroglycerin 0.4 Mg Sl Tablet SL 11/20/24 20:50
[id number] PRN
chest pain/sob
Pantoprazole Sodium 40 mg 10/24/24 20:00 10/26/24 09:19
Pantoprazole Sodium 40 Mg/10 Ml Vial IV 11/21/24 19:59 40 mg
Q12 BESSY Administration
Patch Removal 0 patch 10/24/24 20:00 10/25/24 20:19
Remove Lidocaine Patch REMOVE 11/21/24 19:59 1 patch
DAILY@2000 BESSY Administration
Polyethylene Glycol 17 grams 10/23/24 20:51
Polyethylene Glycol Powder 17 Grams Packet PO 11/20/24 20:50
DAILYPRN PRN
constipation
Rosuvastatin Calcium 40 mg 10/23/24 22:00 10/24/24 22:06
Rosuvastatin (Crestor) 40 Mg Tablet PO 11/20/24 21:59 40 mg
HS BESSY Administration
Senna/Docusate Sodium 1 tablet 10/23/24 20:51
Docusate W/Senna (Aspen-Colace) Tablet PO 11/20/24 20:50
BIDPRN PRN
constipation
Sodium Chloride 0 flush 10/23/24 20:00
Sodium Chloride 0.9% (Flush) Syringe IV 11/20/24 19:59
PER PROTOCOL BESSY
Sodium Chloride 0.9 ml 10/24/24 13:00
Sodium Chloride 0.9% (Preservative Free) 10 Ml Vial IV 11/21/24 12:59
Q2MPRN PRN
naloxone dilution
Sodium Chloride 10 ml 10/24/24 20:00 10/26/24 09:19
Sodium Chloride 0.9% (Preservative Free) 10 Ml Vial IV 11/21/24 19:59 10 ml
Q12 BESSY Administration
Sterile Water 10 ml 10/24/24 08:00 10/26/24 09:20
Sterile Water For Injection 10 Ml Vial IV 11/21/24 07:59 Not Given
Q24H BESSY
Thiamine HCl 100 mg 10/25/24 20:00 10/26/24 09:00
Thiamine 100 Mg Tablet PO 11/22/24 19:59 100 mg
BID BESSY Administration
Tramadol HCl 25 mg 10/25/24 16:51 10/26/24 10:44
Tramadol Hcl 50 Mg Tablet PO 11/22/24 16:49 25 mg
Q8HPRN PRN Administration
moderate pain
Home Medications
-
Home Medications
atenolol 25 mg tablet 25 mg PO HS Blood Pressure 05/11/10
ezetimibe 10 mg tablet 10 mg PO DAILY High Cholesterol 05/11/10
aspirin 81 mg tablet,delayed release (Leni Low Dose Aspirin) 81 mg PO HS Blood Clot Prevention/Tx 03/26/15
gabapentin 300 mg capsule 600 mg PO HS 07/29/18
clopidogrel 75 mg tablet 75 mg PO DAILY #90 tabs 08/03/18
nitroglycerin 0.4 mg sublingual tablet 0.4 mg sublingual [id number] PRN chest pain/sob #25 tabs 08/03/18
eplerenone 25 mg tablet 25 mg PO DAILY Heart Disease/Condition 07/09/19
acetaminophen 500 mg tablet 1,000 mg PO BID Pain 10/24/19
allopurinol 100 mg tablet 100 mg PO DAILY Gout 10/24/19
famotidine 20 mg tablet 20 mg PO DAILY Gastrointestinal Issue 10/24/19
fluticasone propionate 50 mcg/actuation nasal spray,suspension 2 spray intranasal HS Allergies 10/24/19
hydrochlorothiazide 12.5 mg tablet 12.5 mg PO DAILY 02/27/22
levomefolate--vitamins B12-B6 2.8 mg-2 mg-25 mg tablet 1 tab PO BID 02/27/22
zgyvdard-kwj-ehkkvm 5 mg-zeaxanth 1 mg-bilberry 7.5 mg-herbal capsule (Macular Health Formula) 1 ea PO NOON 02/27/22
sodium citrate-citric acid 500 mg-334 mg/5 mL oral solution 15 ml PO BID 02/27/22
Medical Marijuana 10 mg PO QID 10/23/24
amlodipine 5 mg tablet 5 mg PO DAILY Blood Pressure 10/23/24
cyclosporine 0.05 % eye drops 1 drp BOTH EYES Q12H Eye Condition 10/23/24
diazepam 5 mg tablet (Valium) 5 mg PO TIDPRN PRN spasm 10/23/24
docusate sodium 100 mg capsule (Colace) 100 mg PO DAILYPRN PRN constipation 10/23/24
gabapentin 300 mg capsule 300 mg PO NOON 10/23/24
oxycodone 5 mg tablet 5 mg PO Q6HPRN PRN severe Pain 10/23/24
peg 400-propylene glycol (PF) 0.4 %-0.3 % eye drops in a dropperette (Systane (PF)) 1 drp BOTH EYES Q12H 10/23/24
rosuvastatin 40 mg tablet 40 mg PO HS 10/23/24
--- NOTE | 2024-10-26 11:10 | W.PN.HOSP.TC ---
Today's Communication/Plan
-
mentation significantly improved
cont IVF - decrease rate
Stop Dilaudid, cont tylenol and tramadol
MRI brain as per neurology
Assessment / Plan
Assessment / Plan
79yo M with PMHx of b/l renal artery stenting, CAD s/.p CABG, 1st degree AVB, HTN, HLD, HTN, neuropathy fell 3 days ago and was found to have Impacted fracture, neck/head, proximal left humerus, sling placed and patient sent home. Pain gradually
worsened and also developed L hip pain with L knee swelling. Saw in the clinic, deemed to have not sufficient fluid for joint aspiration. Knee is swollen, not red and not hot. Brought to ED 2/2 pain mostly on LLE causing significant
confusion. Also concern for LLL pneumonia and UTI however ruled out based on absence of respiratory symptoms and neg urine Cx. Mentation improved
A/P:
#Impacted fracture, neck/head, proximal left humerus
#LLE hip pain
#L knee swelling with large effusion, crystal arthropathy (CPPD)
#LLE pain
Lactate WNL, dorsalis pedis on both feet palpable, no toe discoloration
US neg for DVT
Pain gmt - IV Dilaudid/Toradol
XR L hip/knee - no fracture
Ortho consult: s/p L knee arthrocentesis, Cx prelim neg, significant inflammatory cells, calcium pyrophosphate crystals
Vanco/Zosyn stopped since developed rash reaction on back, unclear if from Abx but with neg joint Cx and with low suspiscion by ID - reasonable to stop as risk overweight benefit
#ruled outUTI
#ruled out LLL pneumonia
Bcx neg to date
COVID-19 and Influenza neg
#Mild leukocytopenia
suspect reactive
#Lower back pain
#Old 90% anterior wedge compression fracture of T12
CT lumbar spine, multilevel DJD, no cord compression, but significant nerve impingements
MRI lumbar spine
#Toxic metabolic encephalopathy vs pain-induced encephalopathy
Head CT - no abnormality
can be 2/2 pain vs infection
TSH, ammonia WNL
Neurology: most likely pain and iatrogenic induced with hyponatremia on admisison, MRI brain, thiamine
#Rhabdomyolysis
#Transaminitis 2/2 rhabdo
#Indirect bilirubinemia 2/2 rhabdo
No biliary pathology on CT abd
follow LFT
hepatitis panel
GI consult
#Elevated LDH
check haptoglobin,
ANTONELLA neg
follow LDH
No over signs of hemolysis on CBC
most likely hematoma resorption 2/2 large L shoulder bruise
#Anemia
most likely 2/2 trauma as significant bruising around L shoulder
follow CBC
#Hyponatremia
#VIJAY
#Hx of b/l renal stenting
#Acute urinary retention
Coates
VIJAY resolved on hydration - no concern for stent occlusion at this time
IVF
Serial BMP
Hold HCTZ
#Aortic root dilation
#CAD
#HLD
#Essential HTN
cont home meds
Control BP with hydralazine
#L kidney cyst
#Nephrolithiasis non-obstructing
hydrate
outpatient urology f/u
DVT ppx hep
I have spent at least 55min reviewing chart, test results, communication with consultants, family and direct patient care
Anticipated Discharge: > 48 hours
Subjective/Interval History
-
Date of Service: October 26, 2024
Objective Data
-
Labs:
Laboratory Results
10/26/24
07:32
WBC 3.7 L
Hgb 10.5 L
Hct 28.9 L
Plt Count 157
Sodium 136
Potassium 3.7
Chloride 101
Carbon Dioxide 23
BUN 24 H
Creatinine 0.9
Glucose 156 H
Calcium 8.3 L
Total Bilirubin 2.1 H
AST 255 H
ALT 143 H
Alkaline Phosphatase 108
Vital Signs:
Vital Signs
Temp Pulse Resp BP Pulse Ox
97.4 F 78 18 133/73 95
10/26/24 07:20 10/26/24 07:20 10/26/24 07:20 10/26/24 07:20 10/26/24 07:20
I&O
10/25/24 10/26/24 10/27/24
06:59 06:59 06:59
Intake Total 1090 / 1090 480 / 480 1440 / 1440
Output Total 1050 / 1050 450 / 450 1800 / 1800
Balance 40 / 40 30 / 30 -360 / -360
Review of Systems
-
History Source: Patient
All other systems: Reviewed and negative
Musculoskeletal: Reports Other (lower back chronic pain, L knee and L shoulder pain)
Physical Exam
-
General: No Apparent Distress
HEENT: Normocephalic
Respiratory: Clear to Auscultation
Cardiac: Regular Rhythm
GI: Soft, Nontender and Nondistended
Musculoskeletal: Other (L shoulder bruise, L knee swelling)
Neuro: Awake, Alert, Oriented and AO x 3
Psych: Calm
--- NOTE | 2024-10-26 11:56 | W.PN.ID1 ---
Date of Service
Date of Service: October 26, 2024
Today's Communication
observe clinically
Assessment / Plan
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
History of C difficile 2009
Elevated CPK/rhabdo
Pain lumbar spine
Delirium
- body fluid culture pending, not yet resulted from the lab today
- will follow body fluid culture later this afternoon
- agree with stopping antibiotics, observe clinically
- lyme serology pending - unclear significance if positive, babesia smear negative3
Chief Complaint
-: Other (pseudogout)
Subjective / Review of Systems
afebrile
bp stable
pain controlled today, delirium ongoing
Vital Signs / Physical Exam
Vital Signs
Vital Signs
Temp Pulse Resp BP Pulse Ox
97.4 F 82 18 153/74 96
10/26/24 11:30 10/26/24 11:30 10/26/24 11:30 10/26/24 11:30 10/26/24 11:30
Physical Exam
Constitutional: No Acute Distress
Cardiovascular: Regular Rate and S1/S2; Negative Murmur or Rub
Pulmonary: Clear and Symmetric; Negative Wheezes or Rales
Gastrointestinal: Soft, Non Tender, Non Distended and Normal Bowel Sounds
Musculoskeletal: Other (L knee not swollen warm or particularly tender)
Skin: Warm and Dry; Negative Rash or Jaundice
Objective Data
Lab Data
Lab Results
10/26/24 07:32
10/26/24 07:32
PT 14.8 Sec (11.4-14.6) H 10/23/24 17:34
INR 1.11 10/23/24 17:34
APTT 37.2 Sec (23.4-35.0) H 10/23/24 17:34
Estimated Creat Clear 74 ml/min 10/26/24 07:32
Lactic Acid 1.3 mmol/L (0.7-2.0) 10/24/24 18:31
Total Bilirubin 2.1 mg/dl (0.2-1.3) H 10/26/24 07:32
AST 255 U/L (17-59) H 10/26/24 07:32
ALT 143 U/L (0-50) H 10/26/24 07:32
Alkaline Phosphatase 108 U/L (38-126) 10/26/24 07:32
Most recent labs reviewed.
Micro Results:
10/25/24 09:42 Blood Parasites Smear - Final
Blood/Venous No blood parasites seen.
10/25/24 13:39 Blood Culture - Pending
Blood/Venous
10/25/24 13:32 Blood Culture - Pending
Blood/Venous
10/24/24 13:15 Anaerobic Culture - Preliminary
Joint Fluid Culture pending. Anaerobic cultures are examined after 3
days incubation. Additional information to follow.
10/24/24 13:14 Body Fluid Culture - Preliminary
Joint Fluid No Growth After 18-24 Hours
Gram Stain - Preliminary
10/23/24 16:36 Urine Culture - Final
Urine NO GROWTH
10/23/24 17:34 Influenza Types A & B (SARBJIT) - Final
Nasal Swab Negative for Influenza A & B, NAAT
Negative results must be combined with clinical observations
and patient history.
Nucleic Acid Amplification test (NAAT)performed on the
[email or web address] platform.
[2024-10-26] MEDS: NEURONTIN 300 MG PO (12:25)
[2024-10-26] MEDS: PLAVIX 75 MG PO (12:26)
--- NOTE | 2024-10-26 16:50 | CM ---
manager project management reviewed patient's chart and met with patient and spouse at bedside. patient lives with spouse in a 2 story home, patient is independent with adl's and ambulation, patient is currently with right sling, after a left proximal humerus
fracture.
Patient has a first floor set up with bedroom and bathroom. and patient is current with [facility], patient may benefit from PT/OT evaluations to see if patient is able to return to home with [facility] v's skilled placement.
PCP: Michelle Romo
Pharmacy: [facility] in [place].
Plan; Home with [facility] v's skilled placement.
[2024-10-26] MEDS: ASPIR LOW (ENTERIC COATED) 81 MG PO (22:04)
[2024-10-26] MEDS: NEURONTIN 600 MG PO (22:05)
[2024-10-27] VITALS (7 sets, daily range): BP systolic 123–160; BP diastolic 68–85; PULSE 77
[2024-10-27 01:54] LABS: Haptoglobin 300 mg/dL (30-200)
[2024-10-27] MEDS: ULTRAM 25 MG PO ×2 (05:57→12:05)
[2024-10-27 08:33] LABS: % Eosinophils 1.7 % (0-6); % Immature Granulocytes 0.2 % (0-0.5); % Lymphocytes 26.7 % (20.5-51.1); % Monocytes 11.4 % (1.7-9.3); Absolute Eosinophils 0.1 10^3/uL (0-0.7); Absolute Lymphocytes 1.5 10^3/uL (1.2-3.4); Absolute Monocytes 0.6 10^3/uL (0.1-0.6); Absolute Neutrophils 3.3 10^3/uL (1.4-6.5); Hematocrit 30.6 % (39.0-52.0); Hemoglobin 10.6 g/dL (13.0-18.0); Mean Corp Hgb Conc. 34.6 g/dL (33.0-37.0); Mean Corpuscular Hgb 31.5 pg (27.0-31.0); Mean Corpuscular Volume 91.1 fL (80.0-94.0); Mean Platelet Volume 9.8 fL (7.4-10.4); Nucleated Red Blood Cells % 0 % (-); Platelet Count 218 10^3/uL (130-400); Red Blood Cell Count 3.36 10^6/uL (4.70-6.10); Red Cell Dist. Width 11.9 % (11.5-14.5); White Blood Cell Count 5.4 10^3/uL (4.8-10.8)
[2024-10-27 08:45] LABS: ALT (SGPT) 443 U/L (0-50); AST (SGOT) 622 U/L (17-59); Albumin 2.8 g/dl (3.5-5.0); Alkaline Phosphatase 156 U/L (38-126); Blood Urea Nitrogen 20 mg/dl (9-20); Calcium 8.3 mg/dl (8.4-10.2); Carbon Dioxide 28 mmol/L (22-30); Chloride 102 mmol/L (98-107); Creatine Phosphokinase 426 U/L (55-170); Direct Bilirubin 0.3 mg/dl (0.0-0.4); Estimated Creatinine Clearance 84 ml/min; Glucose 109 mg/dl (70-99); Magnesium 1.9 mg/dl (1.6-2.3); Potassium 3.3 mmol/L (3.5-5.1); Sodium 139 mmol/L (135-145); Total Bilirubin 1.6 mg/dl (0.2-1.3); Total Protein 5.3 g/dl (6.3-8.2); eGFR > 60.00
[2024-10-27] MEDS: ATIVAN 0.5 MG IV (08:57)
[2024-10-27] MEDS: NSS (PRESERVATIVE FREE) 0.25 ML IV (08:57)
--- NOTE | 2024-10-27 08:57 | W.PN.UPDATE ---
Update Note
Progress Note Update
Mr. Rose comfortable this AM. Denies any significant pain in the left knee, but having pain in the left shoulder and lower back. Sling is in place on LUE.
Left shoulder: Swelling improved from yesterday. Ecchymosis about entire UE. Able to passively move elbow and wrist without pain. N/v intact distally.
Left knee: Trace effusion, not significant enough to consider repeat aspiration. Jalil compression. No pain with active or passive ROM with flexion to 130 degrees today. Calf soft and non tender to palpation.
Fluid cultures with no growth 48 hours.
Plan:
1. Left shoulder proximal humerus fracture - continue with sling immobilization. May remove in bed, but should be in place when up and moving around. Encouraged him to work on elbow/wrist/hand ROM. Will benefit from PT/OT when medically able.
NWB LUE.
2. Left knee pseudoseptic reaction to hymovis vs. pseudogout flare - believe the timing of injection. There is a minimal effusion on exam, no pain, and full ROM, so very low suspicion for septic joint. Continue with jalil wrap and medication
management. Will continue to follow cultures.
3. Upon D/c recommend outpatient Ortho follow-up in 1-2 weeks
[2024-10-27] MEDS: VITAMIN B1 100 MG PO ×2 (09:05→20:03)
[2024-10-27] MEDS: NSS (PRESERVATIVE FREE) 10 ML IV (09:05)
[2024-10-27] MEDS: LIDOCAINE 4% PATCH 1 PATCH TOPICAL (09:05)
[2024-10-27] MEDS: PROTONIX IV 40 MG IV (09:05)
[2024-10-27] MEDS: PEPCID 20 MG PO (09:06)
[2024-10-27] MEDS: BICITRA 15 ML PO ×2 (09:06→20:03)
[2024-10-27] MEDS: ZETIA 10 MG PO (09:06)
[2024-10-27] MEDS: REFRESH EYE DROPS (PF) 1 DROPS BOTH EYES ×2 (09:06→20:04)
[2024-10-27] MEDS: RESTASIS 0.05% OPHTHALMIC EMULSION 1 DROPS BOTH EYES ×2 (09:06→20:04)
[2024-10-27] MEDS: PLAVIX 75 MG PO (09:07)
[2024-10-27] MEDS: HEPARIN 5000 UNITS SC ×3 (09:07→23:28)
--- NOTE | 2024-10-27 09:09 | W.PN.HOSP.TC ---
Today's Communication/Plan
-
worsening transaminitis still with indirect bilirubinemia - recheck LDH but since haptoglobin elevated - no concern for hemolysis. Hepatitis panel still pending, GI recalled, avoid Tylenol and statin
Replete potassium, restart Elprenone
MRI brain
check INR
Add RUQ doppler US
Assessment / Plan
Assessment / Plan
79yo M with PMHx of b/l renal artery stenting, CAD s/.p CABG, 1st degree AVB, HTN, HLD, HTN, neuropathy fell 3 days ago and was found to have Impacted fracture, neck/head, proximal left humerus, sling placed and patient sent home. Pain gradually
worsened and also developed L hip pain with L knee swelling. Saw in the clinic, deemed to have not sufficient fluid for joint aspiration. Knee is swollen, not red and not hot. Brought to ED 2/2 pain mostly on LLE causing significant
confusion. Also concern for LLL pneumonia and UTI however ruled out based on absence of respiratory symptoms and neg urine Cx. Mentation improved
A/P:
#Impacted fracture, neck/head, proximal left humerus
#LLE hip pain
#L knee swelling with large effusion, crystal arthropathy (CPPD)
#LLE pain
Lactate WNL, dorsalis pedis on both feet palpable, no toe discoloration
US neg for DVT
Pain gmt - IV Dilaudid/Toradol
XR L hip/knee - no fracture
Ortho consult: s/p L knee arthrocentesis, Cx prelim neg, significant inflammatory cells, calcium pyrophosphate crystals
Vanco/Zosyn stopped since developed rash reaction on back, unclear if from Abx but with neg joint Cx and with low suspicion by ID - reasonable to stop as risk overweight benefit. Cultures remain negative
Lyme pending
#ruled out UTI
#ruled out LLL pneumonia
Bcx neg to date
COVID-19 and Influenza neg
#Mild leukocytopenia
resolved
suspect reactive
#Lower back pain - crinic with chronic b/l feet numbness
#Old 90% anterior wedge compression fracture of T12
Outpatient neuroSx
CT lumbar spine, multilevel DJD, no cord compression, but significant nerve impingements
#Toxic metabolic encephalopathy vs pain-induced encephalopathy
Head CT - no abnormality
can be 2/2 pain vs infection
TSH, ammonia WNL
Neurology: most likely pain and iatrogenic induced with hyponatremia on admisison, MRI brain, thiamine
#Rhabdomyolysis
#Transaminitis 2/2 rhabdo
#Indirect bilirubinemia 2/2 rhabdo
No biliary pathology on CT abd
follow LFT
hepatitis panel
GI consult
#Elevated LDH
check haptoglobin,
ANTONELLA neg
follow LDH
No over signs of hemolysis on CBC
most likely hematoma resorption 2/2 large L shoulder bruise
#Anemia
most likely 2/2 trauma as significant bruising around L shoulder
follow CBC
LDH mildly elevated most likely 2/2 hematoma, as also high haptoglobin (acute reactant). No concern for microvascular hemolysis, Croombs neg
Blood parasite screen neg
#Hyponatremia
#VIJAY
#Hx of b/l renal stenting
#Acute urinary retention
Coates
VIJAY resolved on hydration - no concern for stent occlusion at this time
IVF
Serial BMP
Hold HCTZ
#Aortic root dilation
#CAD
#HLD
#Essential HTN
cont home meds
Control BP with hydralazine
#L kidney cyst
#Nephrolithiasis non-obstructing
hydrate
outpatient urology f/u
DVT ppx hep
I have spent at least 55min reviewing chart, test results, communication with consultants, family and direct patient care
Anticipated Discharge: > 48 hours
Subjective/Interval History
-
Date of Service: October 27, 2024
Objective Data
-
Labs:
Laboratory Results
10/27/24 10/27/24
07:10 09:07
WBC 5.4
Hgb 10.6 L
Hct 30.6 L
Plt Count 218 D
PT Pending
INR Pending
Sodium 139
Potassium 3.3 L
Chloride 102
Carbon Dioxide 28
BUN 20
Creatinine 0.8
Glucose 109 H
Calcium 8.3 L
Total Bilirubin 1.6 H
AST 622 H*
ALT 443 H
Alkaline Phosphatase 156 H
Vital Signs:
Vital Signs
Temp Pulse Resp BP Pulse Ox
97.5 F 66 16 143/69 95
10/27/24 07:23 10/27/24 07:23 10/27/24 07:23 10/27/24 07:23 10/27/24 07:23
I&O
10/26/24 10/27/24 10/28/24
06:59 06:59 06:59
Intake Total 480 / 480 2160 / 2160 1200 / 1200
Output Total 450 / 450 6075 / 6075
Balance 30 / 30 -3915 / -3915 1200 / 1200
Review of Systems
-
History Source: Patient
All other systems: Reviewed and negative
Musculoskeletal: Reports Other (L shoulder pain)
Physical Exam
-
General: No Apparent Distress
HEENT: Normocephalic
Cardiac: Regular Rhythm
GI: Soft, Nontender and Nondistended
Musculoskeletal: No Clubbing, No Cyanosis and No Edema
Neuro: Awake, Alert, Oriented and AO x 3
Psych: Calm
[2024-10-27] MEDS: STERILE WATER FOR INJECTION IV (09:47)
[2024-10-27 09:54] LABS: LDH 520 U/L (120-246)
--- NOTE | 2024-10-27 09:54 | W.PN.NEURO.1 ---
Today's Communication / Plan
-
.
Subjective/Objective
Subjective Data
Date of Service: October 27, 2024
Neurology follow-up note.
Mr. Collier reports no complaints. Continues to be afebrile
Brain MRI is pending
MAR: Hydromorphone 0.25 mg given on 10/25/24 at 22:20, 0.5 mg given on 10/26/2024 at 1:02 and 3:56 am.
Labs: AST�622, creatinine kinase�426, normal sodium, WBCs.
PMH: Cervical myelopathy/ h/o cervical central spinal canal stenosis, LS radiculopathy, T12 chronic compression fracture, PAD, CAD, HTN, DLP, CKD, GERD, left humeral fracture, polyneuropathy, diverticulosis, Nephrolithiasis
PSH: L knee arthrocentesis, bilateral cataract surgery, C4-C7 ACDF, CABG, mastectomy, b/l renal artery stents, left knee arthroplasty,
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
FH: Not contributory to current presentation
All: Statins, lisinopril, Levaquin, spironolactone,
ROS: Positive for left arm pain, left knee pain, lower back pain negative for headache, change in vision
General: Well developed. In no acute distress.
Cardio: Regular rate and rhythm without murmur. Extremities are without cyanosis or edema.
Neuro:
Mental Status: Awake, oriented to name, 'October, 16' '. Follows simple requests consistently. No aphasia or hemineglect.
Cranial Nerves: Pupils are equally round, surgical EOMs full. BTT BL No ptosis. No nystagmus. Face symmetric. Impaired hearing AU. No dysarthria.
Motor: Moves all limbs antigravity. Pain related left proximal arm weakness. Left wrist dorsiflexion�at least 4 out of 5
Reflexes: Negative grasp bilaterally
Sensory: Limited exam due to poor attention
Coordination: No tremors, clonic movements
Gait: deferred
Assessment and Plan:
I. Multifactorial encephalopathy, improved.
II. Rhabdomyolysis
III. History of cervical central spinal canal stenosis.
-Avoid cerebral hypoperfusion
-Brain MRI wo dale
-Avoid opioids, benzodiazepines and anticholinergic medication
-Continue thiamine
-Will follow
I personally reviewed all radiology and labs along with past medical records pertinent to current medical problems. Total time spent in patient care is 38 minutes.
Thank you for allowing us to participate in the care of this patient. We will continue to follow. Please do not hesitate to contact us with any questions or concerns.
Objective Data
Vital Signs
Temp Pulse Resp BP Pulse Ox
36.4 C 66 16 143/69 95
10/27/24 07:23 10/27/24 07:23 10/27/24 07:23 10/27/24 07:23 10/27/24 07:23
Lab Results
10/27/24 07:10
10/27/24 07:10
PT 14.8 Sec (11.4-14.6) H 10/23/24 17:34
INR 1.11 10/23/24 17:34
APTT 37.2 Sec (23.4-35.0) H 10/23/24 17:34
Sodium 139 mmol/L (135-145) 10/27/24 07:10
Potassium 3.3 mmol/L (3.5-5.1) L 10/27/24 07:10
BUN 20 mg/dl (9-20) 10/27/24 07:10
Glucose 109 mg/dl (70-99) H 10/27/24 07:10
Calcium 8.3 mg/dl (8.4-10.2) L 10/27/24 07:10
Ur Buprenorphine Negative (Negative) 10/25/24 09:31
Patient Allergies
atorvastatin calcium [From Lipitor] Allergy (Verified 10/23/24 13:39)
MUSCLE CRAMPS
levofloxacin [From Levaquin] Allergy (Verified 10/23/24 13:39)
ACHILLES CRAMPS
lisinopril Allergy (Verified 10/23/24 13:39)
Unknown
simvastatin Allergy (Verified 10/23/24 13:39)
AGITATION/ LEG ACHES
spironolactone [From Aldactone] Allergy (Verified 10/23/24 13:39)
gynecomastia
Vital Signs and Labs
-
Vital Signs and Labs:
Vital Signs
Temp Pulse Resp BP Pulse Ox
36.4 C 66 16 143/69 95
10/27/24 07:23 10/27/24 07:23 10/27/24 07:23 10/27/24 07:23 10/27/24 07:23
Lab Results
10/27/24 07:10
10/27/24 07:10
PT 14.8 Sec (11.4-14.6) H 10/23/24 17:34
INR 1.11 10/23/24 17:34
APTT 37.2 Sec (23.4-35.0) H 10/23/24 17:34
Sodium 139 mmol/L (135-145) 10/27/24 07:10
Potassium 3.3 mmol/L (3.5-5.1) L 10/27/24 07:10
BUN 20 mg/dl (9-20) 10/27/24 07:10
Glucose 109 mg/dl (70-99) H 10/27/24 07:10
Calcium 8.3 mg/dl (8.4-10.2) L 10/27/24 07:10
Ur Buprenorphine Negative (Negative) 10/25/24 09:31
Medications
-
Medications:
Generic Name Dose Route Start Last Admin
Trade Name Freq PRN Reason Stop Dose Admin
Acetaminophen 650 mg 10/23/24 20:51
Acetaminophen 325 Mg Tablet PO 02/06/25 20:50
Q4HPRN PRN
mild pain/SAMAYOA/temp> 100.4F
Allopurinol 100 mg 10/24/24 08:00 10/25/24 08:59
Allopurinol 100 Mg Tablet PO 11/21/24 07:59 100 mg
DAILY BESSY Administration
Artificial Tears 1 drops 10/23/24 22:00 10/27/24 09:06
Artificial Tears Pf (Refresh) 10 Drop Droperette BOTH EYES 11/20/24 21:59 1 drops
Q12 BESSY Administration
Artificial Tears 1 drops 10/25/24 21:54 10/25/24 23:41
Artificial Tears Pf (Refresh) 10 Drop Droperette OPHTH 11/22/24 21:53 1 drops
QIDPRN PRN Administration
dry eyes
Aspirin 81 mg 10/23/24 22:00 10/26/24 22:04
Aspirin 81 Mg (Enteric Coated) Tablet PO 11/20/24 21:59 81 mg
HS BESSY Administration
Atenolol 25 mg 10/23/24 22:00 10/24/24 21:35
Atenolol 25 Mg Tablet PO 11/20/24 21:59 Not Given
HS BESSY
Bisacodyl 10 mg 10/23/24 20:51
Bisacodyl 10 Mg Rectal Suppository RECTAL 11/20/24 20:50
[id number] PRN
constipation
Citric Acid/Sodium Citrate 15 ml 10/23/24 22:00 10/27/24 09:06
Sodium Citrate/Citric Acid (Oral Solution) 30 Ml Cup PO 11/20/24 21:59 15 ml
BID BESSY Administration
Clopidogrel Bisulfate 75 mg 10/26/24 12:00 10/27/24 09:07
Clopidogrel 75 Mg Tablet PO 11/23/24 11:59 75 mg
DAILY BESSY Administration
Cyclosporine 1 drops 10/23/24 22:00 10/27/24 09:06
Cyclosporine 0.05% (Ophthalmic Emulsion) 10 Drop Droperette BOTH EYES 11/20/24 21:59 1 drops
Q12 EBSSY Administration
Docusate Sodium 100 mg 10/23/24 20:51
Docusate Sodium 100 Mg Capsule PO 11/20/24 20:50
DAILYPRN PRN
constipation
Ezetimibe 10 mg 10/24/24 08:00 10/27/24 09:06
Ezetimibe (Zetia) 10 Mg Tablet PO 11/21/24 07:59 10 mg
DAILY BESSY Administration
Eplerenone 25 mg 10/24/24 08:00 10/24/24 10:07
Eplerenone 25 Mg Tablet PO 11/21/24 07:59 Not Given
DAILY BESSY
Famotidine 20 mg 10/24/24 08:00 10/27/24 09:06
Famotidine 20 Mg Tablet PO 11/21/24 07:59 20 mg
DAILY BESSY Administration
Gabapentin 300 mg 10/24/24 12:00 10/26/24 12:25
Gabapentin 300 Mg Capsule PO 11/21/24 11:59 300 mg
NOON BESSY Administration
Gabapentin 600 mg 10/23/24 22:00 10/26/24 22:05
Gabapentin 300 Mg Capsule PO 11/20/24 21:59 600 mg
HS BESSY Administration
Heparin Sodium 5,000 units 10/24/24 00:00 10/27/24 09:07
Heparin 5,000 Units/Ml 1 Ml Vial SC 11/21/24 00:00 5,000 units
Q8 BESSY Administration
Lactated Ringer's 1,000 mls @ 100 mls/hr 10/25/24 07:00 10/26/24 22:45
Lr IV 1,000 mls
.Q10H BESSY Administration
Lidocaine 1 patch 10/24/24 11:45 10/27/24 09:05
Lidocaine 4% Topical Patch TOPICAL 11/21/24 11:44 1 patch
DAILY BESSY Administration
Protocol
Lorazepam 0.5 mg 10/27/24 08:14 10/27/24 08:57
Lorazepam 2 Mg/Ml Vial IV 11/24/24 08:13 0.5 mg
ONCE PRN PRN Administration
before MRI
Midodrine 5 mg 10/25/24 06:20 10/25/24 19:23
Midodrine 5 Mg Tablet PO 11/22/24 06:19 5 mg
Q4HPRN PRN Administration
sbp<90
Naloxone HCl 0.04 mg 10/24/24 11:47
Naloxone (0.4 Mg/Ml) 1 Ml Injection IV 11/21/24 11:46
Q2MPRN PRN
respiratory suppresion
Nitroglycerin 0.4 mg 10/23/24 20:51
Nitroglycerin 0.4 Mg Sl Tablet SL 11/20/24 20:50
[id number] PRN
chest pain/sob
Pantoprazole Sodium 40 mg 10/27/24 20:00
Pantoprazole 40 Mg Delayed Release Tablet PO 11/24/24 19:59
BID BESSY
Patch Removal 0 patch 10/24/24 20:00 10/26/24 22:04
Remove Lidocaine Patch REMOVE 11/21/24 19:59 Not Given
DAILY@2000 BESSY
Polyethylene Glycol 17 grams 10/23/24 20:51
Polyethylene Glycol Powder 17 Grams Packet PO 11/20/24 20:50
DAILYPRN PRN
constipation
Rosuvastatin Calcium 40 mg 10/23/24 22:00 10/24/24 22:06
Rosuvastatin (Crestor) 40 Mg Tablet PO 11/20/24 21:59 40 mg
HS BESSY Administration
Senna/Docusate Sodium 1 tablet 10/23/24 20:51
Docusate W/Senna (Aspen-Colace) Tablet PO 11/20/24 20:50
BIDPRN PRN
constipation
Sodium Chloride 0 flush 10/23/24 20:00
Sodium Chloride 0.9% (Flush) Syringe IV 11/20/24 19:59
PER PROTOCOL BESSY
Sodium Chloride 0.9 ml 10/24/24 13:00
Sodium Chloride 0.9% (Preservative Free) 10 Ml Vial IV 11/21/24 12:59
Q2MPRN PRN
naloxone dilution
Sodium Chloride 0.25 ml 10/27/24 08:17 10/27/24 08:57
Nss (Pf) 10 Ml Vial For Ativan 0.5 Mg Dose IV 11/24/24 08:16 0.25 ml
ONCE PRN PRN Administration
IV LORAZEPAM DILUTION
Sterile Water 10 ml 10/24/24 08:00 10/27/24 09:47
Sterile Water For Injection 10 Ml Vial IV 11/21/24 07:59 Not Given
Q24H BESSY
Thiamine HCl 100 mg 10/25/24 20:00 10/27/24 09:05
Thiamine 100 Mg Tablet PO 11/22/24 19:59 100 mg
BID BESSY Administration
Tramadol HCl 25 mg 10/26/24 11:20 10/27/24 05:57
Tramadol Hcl 50 Mg Tablet PO 11/23/24 11:18 25 mg
Q6HPRN PRN Administration
moderate-severe pain
Home Medications
-
Home Medications
atenolol 25 mg tablet 25 mg PO HS Blood Pressure 05/11/10
ezetimibe 10 mg tablet 10 mg PO DAILY High Cholesterol 05/11/10
aspirin 81 mg tablet,delayed release (Leni Low Dose Aspirin) 81 mg PO HS Blood Clot Prevention/Tx 03/26/15
gabapentin 300 mg capsule 600 mg PO HS 07/29/18
clopidogrel 75 mg tablet 75 mg PO DAILY #90 tabs 08/03/18
nitroglycerin 0.4 mg sublingual tablet 0.4 mg sublingual [id number] PRN chest pain/sob #25 tabs 08/03/18
eplerenone 25 mg tablet 25 mg PO DAILY Heart Disease/Condition 07/09/19
acetaminophen 500 mg tablet 1,000 mg PO BID Pain 10/24/19
allopurinol 100 mg tablet 100 mg PO DAILY Gout 10/24/19
famotidine 20 mg tablet 20 mg PO DAILY Gastrointestinal Issue 10/24/19
fluticasone propionate 50 mcg/actuation nasal spray,suspension 2 spray intranasal HS Allergies 10/24/19
hydrochlorothiazide 12.5 mg tablet 12.5 mg PO DAILY 02/27/22
levomefolate--vitamins B12-B6 2.8 mg-2 mg-25 mg tablet 1 tab PO BID 02/27/22
ibiyzsvm-txw-rbyipl 5 mg-zeaxanth 1 mg-bilberry 7.5 mg-herbal capsule (Macular Health Formula) 1 ea PO NOON 02/27/22
sodium citrate-citric acid 500 mg-334 mg/5 mL oral solution 15 ml PO BID 02/27/22
Medical Marijuana 10 mg PO QID 10/23/24
amlodipine 5 mg tablet 5 mg PO DAILY Blood Pressure 10/23/24
cyclosporine 0.05 % eye drops 1 drp BOTH EYES Q12H Eye Condition 10/23/24
diazepam 5 mg tablet (Valium) 5 mg PO TIDPRN PRN spasm 10/23/24
docusate sodium 100 mg capsule (Colace) 100 mg PO DAILYPRN PRN constipation 10/23/24
gabapentin 300 mg capsule 300 mg PO NOON 10/23/24
oxycodone 5 mg tablet 5 mg PO Q6HPRN PRN severe Pain 10/23/24
peg 400-propylene glycol (PF) 0.4 %-0.3 % eye drops in a dropperette (Systane (PF)) 1 drp BOTH EYES Q12H 10/23/24
rosuvastatin 40 mg tablet 40 mg PO HS 10/23/24
[2024-10-27 09:58] LABS: INR 1.02; PT 13.7 Sec (11.4-14.6)
--- NOTE | 2024-10-27 10:27 | CON.GI ---
Addendum entered and electronically signed by Malika Ferrer DO 10/27/24 16:02:
The patient was seen and examined by me independently in collaboration with the nurse practitioner.
Past medical history/social history/medications/allergies/family history reviewed.
Lab data and imaging data reviewed.
Briefly, Aime Rose is a 79 y.o. w/ pmhx CAD, GERD, neuropathy, NAFLD, colon polyps, chronic pain, hx of TI, HTN, HLD, male who initially presented to on 10/23 following a fall, suffering left humerus fracture as well as s/p knee injection on 10/22
as an outpatient. He was very agitated and confused on arrival, found to have elevated LFTS. GI initally asksed to see him on arrival, then consult cancelled as labs consistent with rhabdomyolysis, aspiration of knee effusion c/w pseudoseptic
arthritis. GI asked to reevaluate patient today due to persistence/worening in LFTs despite improvement in rhabdo. Patient is very pleasant and AAOx3 on evaluation today, and daughter at bedside. He does report taking 2g of tylenol daily for
his chronic pain as an outpatient.
Abdominal US w/ dopplers show patent vasculature, normal liver with some sludge in the gallbladder.
Overall LFT pattern consistent with rhabdo, possibly multifactorial given daily tylenol use. Hepatitis panel pending. Coags normal. I am optimistic we will see improvement in his liver enzymes in the next 24-48 hours. If no improvement, will expand
liver workup.
Discussed with patient and family at bedside. All questions answered.
Original Note:
Consultation
-
Date/Time Consultation Requested: 10/27/24 0900
Date/Time Consultation Performed: 10/27/24 1028
Requesting Provider: Dr. Montiel
Performing Provider: Dr. Ferrer/MARK Mcnair
Reason for Consultation: elevated LFTs
Medical History
Chief Complaint / HPI
Chief Complaint: pain
History of Present Illness:
79-year-old male with past medical history of CAD, GERD, hypertension, hyperlipidemia, OR, CKD, left humeral fracture, lumbar disc disease, kidney stones, neuropathy, C. difficile, nonalcoholic fatty liver disease, colon polyps, chronic pain
syndrome, TIA (2019) presented to the emergency room on 10/23/2024 with increased pain, confusion and dehydration. The patient had a recent fall with left humerus fracture. He was treated conservatively and was following up with orthopedics as an
outpatient. He also had a outpatient left knee injection on 10/22/2024. He presented to the emergency room with increased pain, confusion. We are asked to evaluate for elevated LFTs. The patient has a history of prior alcohol use/abuse drinking
4-6 alcoholic beverages daily quitting in 2018. He was utilizing Tylenol only 2 g daily for orthopedic pain. He does have a history of fatty liver diagnosed on imaging by PCP. The patient's confusion has improved. Acetaminophen level was
undetectable. The patient has had no new medications except those prescribed here and injection performed. The patient had elevated CPK with elevated haptoglobin and LDH with elevated AST greater than ALT with increased total bilirubin. The
patient denies any abdominal pain, nausea or vomiting. No early satiety or unintentional weight loss. Hepatitis panel is pending. Smear for blood parasites is negative. He denies any feelings of illness prior to arrival. Only aches and pains
were associated with fall.
Past Medical History
Past Medical History: CAD, GERD, Hypercholesterolemia and Other (Kidney stones, CKD, osteoarthritis, vestibular dysfunction, cervical arthropathy, neuropathy, BPH, osteoarthritis, PUD, NAFLD colon polyps, aortic arthrosclerosis, lumbar compression
fraction, CKD, fractured )
Past Surgical History: Other (CABG, PTCA, left knee surgery x 3, cervical fusion, kidney stents, vasectomy, right inguinal hernia repair, umbilical hernia repair,)
Social History
Tobacco: Former Smoker
Alcohol: Former (Was drinking 4-6 alcoholic beverages daily. Quit in 2018)
Drug: Other (Medical marijuana)
Personal:
Living: With Family
Employment: Retired
Family History
Family History: Other (No family history of gastrointestinal malignancy or IBD)
Allergies / Home Medications
Allergy/AdvReac Type Severity Reaction Status Date / Time
atorvastatin calcium Allergy MUSCLE Verified 10/23/24 13:39
[From Lipitor] CRAMPS
levofloxacin [From Levaquin] Allergy ACHILLES Verified 10/23/24 13:39
CRAMPS
lisinopril Allergy Unknown Verified 10/23/24 13:39
simvastatin Allergy AGITATION/ Verified 10/23/24 13:39
LEG ACHES
spironolactone Allergy gynecomasti Verified 10/23/24 13:39
[From Aldactone] a
�Medication �Instructions �Recorded
atenolol 25 mg tablet 25 mg PO HS Blood Pressure 05/11/10
ezetimibe 10 mg tablet 10 mg PO DAILY High Cholesterol 05/11/10
aspirin 81 mg tablet,delayed 81 mg PO HS Blood Clot 03/26/15
release (Leni Low Dose Aspirin) Prevention/Tx
gabapentin 300 mg capsule 600 mg PO HS 07/29/18
clopidogrel 75 mg tablet 75 mg PO DAILY #90 tabs 08/03/18
nitroglycerin 0.4 mg sublingual 0.4 mg sublingual [id number] PRN 08/03/18
tablet chest pain/sob #25 tabs
eplerenone 25 mg tablet 25 mg PO DAILY Heart 07/09/19
Disease/Condition
acetaminophen 500 mg tablet 1,000 mg PO BID Pain 10/24/19
allopurinol 100 mg tablet 100 mg PO DAILY Gout 10/24/19
famotidine 20 mg tablet 20 mg PO DAILY Gastrointestinal 10/24/19
Issue
fluticasone propionate 50 2 spray intranasal HS Allergies 10/24/19
mcg/actuation nasal
spray,suspension
hydrochlorothiazide 12.5 mg tablet 12.5 mg PO DAILY 02/27/22
levomefolate--vitamins B12-B6 2.8 1 tab PO BID 02/27/22
mg-2 mg-25 mg tablet
kleodamj-kst-qsyaqm 5 mg-zeaxanth 1 ea PO NOON 02/27/22
1 mg-bilberry 7.5 mg-herbal
capsule (Macular Health Formula)
sodium citrate-citric acid 500 15 ml PO BID 02/27/22
mg-334 mg/5 mL oral solution
Medical Marijuana 10 mg PO QID 10/23/24
amlodipine 5 mg tablet 5 mg PO DAILY Blood Pressure 10/23/24
cyclosporine 0.05 % eye drops 1 drp BOTH EYES Q12H Eye Condition 10/23/24
diazepam 5 mg tablet (Valium) 5 mg PO TIDPRN PRN spasm 10/23/24
docusate sodium 100 mg capsule 100 mg PO DAILYPRN PRN constipation 10/23/24
(Colace)
gabapentin 300 mg capsule 300 mg PO NOON 10/23/24
oxycodone 5 mg tablet 5 mg PO Q6HPRN PRN severe Pain 10/23/24
peg 400-propylene glycol (PF) 0.4 1 drp BOTH EYES Q12H 10/23/24
%-0.3 % eye drops in a dropperette
(Systane (PF))
rosuvastatin 40 mg tablet 40 mg PO HS 10/23/24
Review of Systems
-
All other systems: A 12 pt ROS was Negative except as stated above in HPI
Vital Signs
Temp Pulse Resp BP Pulse Ox
97.5 F 66 16 143/69 95
10/27/24 07:23 10/27/24 07:23 10/27/24 07:23 10/27/24 07:23 10/27/24 07:23
Physical Exam
Exam
General: No Apparent Distress
HEENT: Anicteric
Respiratory: Clear (Anterior)
Cardiac: Regular Rhythm
GI: Soft, Non Tender, Non Distended and Normal Bowel Sounds
Musculoskeletal: Other (Healing ecchymosis left shoulder (yellow))
Skin: Warm and Dry
Neuro: AO x 3
Results
WBC 5.4 10^3/uL (4.8-10.8) 10/27/24 07:10
Hgb 10.6 g/dL (13.0-18.0) L 10/27/24 07:10
Hct 30.6 % (39.0-52.0) L 10/27/24 07:10
MCV 91.1 fL (80.0-94.0) 10/27/24 07:10
Plt Count 218 10^3/uL (130-400) D 10/27/24 07:10
Absolute Neuts (auto) 3.3 10^3/uL (1.4-6.5) 10/27/24 07:10
PT 13.7 Sec (11.4-14.6) 10/27/24 09:07
INR 1.02 10/27/24 09:07
APTT 37.2 Sec (23.4-35.0) H 10/23/24 17:34
Sodium 139 mmol/L (135-145) 10/27/24 07:10
Potassium 3.3 mmol/L (3.5-5.1) L 10/27/24 07:10
Chloride 102 mmol/L (98-107) 10/27/24 07:10
Carbon Dioxide 28 mmol/L (22-30) 10/27/24 07:10
BUN 20 mg/dl (9-20) 10/27/24 07:10
Creatinine 0.8 mg/dL (0.7-1.3) 10/27/24 07:10
Calcium 8.3 mg/dl (8.4-10.2) L 10/27/24 07:10
Total Bilirubin 1.6 mg/dl (0.2-1.3) H 10/27/24 07:10
AST 622 U/L (17-59) H* 10/27/24 07:10
ALT 443 U/L (0-50) H 10/27/24 07:10
Alkaline Phosphatase 156 U/L (38-126) H 10/27/24 07:10
GI Diagnostic Image Results:
CT Abd/Pelvis without oral or IV contrast 10/24/24:
IMPRESSION:
1).There is 1.8 cm cyst at the posterior aspect of the lower pole the left kidney
2). There is moderate left-sided renal cortical atrophy
3). There is 4 mm nonobstructing calculus in the interpolar left kidney
4). There is stable 9% compression fracture of T12
5). There is multilevel lumbar degenerative disc disease
6).There is moderate parenchymal airspace disease at the posterior lung bases which may be basilar pneumonia or subsegmental atelectasis
Electronically signed by Frederick Harley MD, 10/24/2024 1:03 PM
Prior GI Procedures:
EGD: none that I can see. However patient chart mentions ulcer disease. Patient states that this was many many years ago.
Colonoscopy: 02/15/2022 ([facility]) The examined portion of the ileum was normal.
- Diverticulosis in the sigmoid colon and in the
ascending colon.
- Internal hemorrhoids.
- No specimens collected.
colonoscopy 2016 scar ascending colon and Cecum. 4 polyps removed 4-7 mm in size all TAs; diverticulosis hemorrhoids.�������
colonoscopy 2011 2 polyps 3-4 mm in size 1 was hyperplastic and one tubular adenoma. Diverticulosis. Hemorrhoids. Scar in the right colon.�������
Colonoscopy 2009 ulcer in the cecum, mucosal ulcer polypoid lesion as well. Fair prep. At that time had C. difficile as well.
Assessment / Plan
-
79-year-old male with past medical history of CAD, GERD, hypertension, hyperlipidemia, OR, CKD, left humeral fracture, lumbar disc disease, kidney stones, neuropathy, C. difficile, nonalcoholic fatty liver disease, colon polyps, chronic pain
syndrome, TIA (2019) presented to the emergency room on 10/23/2024 with increased pain, confusion and dehydration. The patient had a recent fall with left humerus fracture. He was treated conservatively and was following up with orthopedics as an
outpatient. He also had a outpatient left knee injection on 10/22/2024. He presented to the emergency room with increased pain, confusion. We are asked to evaluate for elevated LFTs. Total bilirubin 1.6 (2.1, 1.7), direct bilirubin 0.3 (0.8, 0.5),
AST 622 (255, 294), ALT 443 (143, 118), alk phos 156 (108, 87). PT 13.7, INR 1.02. Ammonia less than 9, CK 426 (1214, 3097), haptoglobin 300, LDH 520 (366, 430), hepatitis panel pending. Acetaminophen level less than 10 (10/25/2024).
Impression:
Elevated LFTs
Rhabdo
Pseudoseptic arthritis
Confusion
Plan:
-Trend LFTs
-Await Hepatitis panel
-Await US Abd with dopplers
-CBC, LFTs, INR in am
-If continues to rise expand liver workup.
-
-
Thank you for consultation and allowing me to participate in the patient's care. Please call the transmission mechanic GI physician during the after hours with any questions or concerns.
[2024-10-27] MEDS: LR 1000 IV ×2 (11:58→23:25)
[2024-10-27] MEDS: CLOBETASOL PROPIONATE 0.05% 1 APPLIC TOPICAL (11:58)
[2024-10-27] MEDS: KCL 40 MEQ PO (12:01)
[2024-10-27] MEDS: NEURONTIN 300 MG PO (12:02)
[2024-10-27] MEDS: ZYLOPRIM PO (13:24)
--- NOTE | 2024-10-27 13:53 | W.PN.ID1 ---
Date of Service
Date of Service: October 27, 2024
Today's Communication
observe off of antibiotics
Assessment / Plan
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
History of C difficile 2009
Elevated CPK/rhabdo
Transaminitis
Pain lumbar spine
Delirium
- body fluid culture remain negative, preliminary
- agree with stopping antibiotics - follow clinically
- lyme serology pending - unclear significance if positive (previous infection possible in this endemic area), babesia smear negative
- viral hepatitis a/b/c pending
- note progressive transaminitis - previous zosyn or ceftriaxone both possible causes - trend LFTs. Note biliary sludge seen on ABD US which can be assc with ceftriaxone
- brain MRI planned per neuro - will follow up
Chief Complaint
-: Other (pseudogout)
Subjective / Review of Systems
afebrile
bp stable
no events overnight
Vital Signs / Physical Exam
Vital Signs
Vital Signs
Temp Pulse Resp BP Pulse Ox
97.4 F 77 18 160/85 98
10/27/24 11:23 10/27/24 11:23 10/27/24 11:23 10/27/24 11:23 10/27/24 11:23
Physical Exam
Constitutional: No Acute Distress
Cardiovascular: Regular Rate and S1/S2; Negative Murmur or Rub
Pulmonary: Clear and Symmetric; Negative Wheezes or Rales
Gastrointestinal: Soft, Non Tender, Non Distended and Normal Bowel Sounds
Skin: Warm, Dry and Rash (extensive old bruising along the L arm); Negative Jaundice
Objective Data
Lab Data
Lab Results
10/27/24 07:10
10/27/24 07:10
PT 13.7 Sec (11.4-14.6) 10/27/24 09:07
INR 1.02 10/27/24 09:07
APTT 37.2 Sec (23.4-35.0) H 10/23/24 17:34
Estimated Creat Clear 84 ml/min 10/27/24 07:10
Lactic Acid 1.3 mmol/L (0.7-2.0) 10/24/24 18:31
Total Bilirubin 1.6 mg/dl (0.2-1.3) H 10/27/24 07:10
AST 622 U/L (17-59) H* 10/27/24 07:10
ALT 443 U/L (0-50) H 10/27/24 07:10
Alkaline Phosphatase 156 U/L (38-126) H 10/27/24 07:10
Most recent labs reviewed.
Micro Results:
10/25/24 13:39 Blood Culture - Preliminary
Blood/Venous No Growth in 48 hours- Final report to follow
10/25/24 13:32 Blood Culture - Preliminary
Blood/Venous No Growth in 48 hours- Final report to follow
10/24/24 13:15 Anaerobic Culture - Preliminary
Joint Fluid Culture pending. Anaerobic cultures are examined after 3
days incubation. Additional information to follow.
10/24/24 13:14 Body Fluid Culture - Preliminary
Joint Fluid No Growth After 72 Hours
Gram Stain - Preliminary
10/25/24 09:42 Blood Parasites Smear - Final
Blood/Venous No blood parasites seen.
10/23/24 16:36 Urine Culture - Final
Urine NO GROWTH
10/23/24 17:34 Influenza Types A & B (SARBJIT) - Final
Nasal Swab Negative for Influenza A & B, NAAT
Negative results must be combined with clinical observations
and patient history.
Nucleic Acid Amplification test (NAAT)performed on the
[employer] platform.
[2024-10-27] MEDS: ULTRAM 50 MG PO (18:08)
[2024-10-27 19:19] LABS: Hepatitis B Surface Antigen Negative (Negative)
[2024-10-27 19:37] LABS: Hepatitis A Antibody, Total Positive (Negative); Hepatitis B Core Ab, Total Negative (Negative); Hepatitis B Surface Antibody Negative; Hepatitis C Antibody Negative (Negative)
[2024-10-27 19:53] LABS: Lyme Antibody Screen, EIA Negative (Negative)
[2024-10-27] MEDS: PROTONIX 40 MG PO (20:03)
[2024-10-27] MEDS: ASPIR LOW (ENTERIC COATED) 81 MG PO (21:17)
[2024-10-27] MEDS: NEURONTIN 600 MG PO (21:18)
[2024-10-27 21:42] LABS: Hepatitis A IgM Antibody Negative (Negative)
[2024-10-28] MEDS: ULTRAM 50 MG PO ×3 (00:12→18:25)
[2024-10-28 07:45] VITALS: BP 159/86
[2024-10-28 07:53] LABS: % Basophils 0.1 % (0-2); % Immature Granulocytes 0.3 % (0-0.5); % Lymphocytes 20.6 % (20.5-51.1); Absolute Eosinophils 0.3 10^3/uL (0-0.7); Absolute Lymphocytes 1.4 10^3/uL (1.2-3.4); Absolute Neutrophils 4.1 10^3/uL (1.4-6.5); Hematocrit 31.7 % (39.0-52.0); Hemoglobin 10.9 g/dL (13.0-18.0); Mean Corp Hgb Conc. 34.4 g/dL (33.0-37.0); Mean Corpuscular Hgb 31.4 pg (27.0-31.0); Mean Corpuscular Volume 91.4 fL (80.0-94.0); Mean Platelet Volume 9.3 fL (7.4-10.4); Nucleated Red Blood Cells % 0 % (-); Platelet Count 238 10^3/uL (130-400); Red Blood Cell Count 3.47 10^6/uL (4.70-6.10); White Blood Cell Count 6.8 10^3/uL (4.8-10.8)
[2024-10-28 07:54] LABS: INR 1.04; PT 13.9 Sec (11.4-14.6)
[2024-10-28] MEDS: PLAVIX 75 MG PO (08:03)
[2024-10-28] MEDS: PEPCID 20 MG PO (08:03)
[2024-10-28] MEDS: REFRESH EYE DROPS (PF) 1 DROPS BOTH EYES ×2 (08:03→19:37)
[2024-10-28] MEDS: VITAMIN B1 100 MG PO ×2 (08:03→19:40)
[2024-10-28] MEDS: ZETIA 10 MG PO (08:03)
[2024-10-28] MEDS: LIDOCAINE 4% PATCH 1 PATCH TOPICAL (08:03)
[2024-10-28] MEDS: HEPARIN 5000 UNITS SC ×3 (08:04→23:27)
[2024-10-28] MEDS: INSPRA 25 MG PO (08:04)
[2024-10-28] MEDS: BICITRA 15 ML PO ×2 (08:04→19:36)
[2024-10-28] MEDS: PROTONIX 40 MG PO ×2 (08:04→19:37)
[2024-10-28] MEDS: RESTASIS 0.05% OPHTHALMIC EMULSION 1 DROPS BOTH EYES ×2 (08:05→19:37)
[2024-10-28] MEDS: STERILE WATER FOR INJECTION IV (08:06)
[2024-10-28] MEDS: CLOBETASOL PROPIONATE 0.05% 1 APPLIC TOPICAL (08:06)
--- NOTE | 2024-10-28 08:09 | W.PN.UPDATE ---
Update Note
Progress Note Update
Mr. Rose comfortable this AM, sitting up in chair. Denies any significant pain in the left knee, but having pain in the left shoulder and lower back. Sling is in place on LUE.
Left shoulder: Swelling improved from yesterday. Ecchymosis about entire UE. Able to passively move elbow and wrist without pain. N/v intact distally.
Left knee: Trace effusion, not significant enough to consider repeat aspiration. Jalil compression. No pain with active or passive ROM with flexion to 130 degrees today. Calf soft and non tender to palpation.
Fluid cultures with no growth 72 hours.
Plan:
1. Left shoulder proximal humerus fracture - continue with sling immobilization. May remove in bed, but should be in place when up and moving around. Encouraged him to work on elbow/wrist/hand ROM. Will benefit from PT/OT when medically able.
NWB LUE.
2. Left knee pseudoseptic reaction to hymovis vs. pseudogout flare - believe the timing of injection. There is a minimal effusion on exam, no pain, and full ROM, so very low suspicion for septic joint. Continue with jalil wrap and medication
management. Will continue to follow cultures.
3. Upon D/c recommend outpatient Ortho follow-up in 1-2 weeks
--- NOTE | 2024-10-28 08:45 | W.PN.GI.CBS2 ---
Today's Communication / Plan
-
f/u AM labs
Assessment / Plan
-
Aime Rose is a 79 y.o. w/ pmhx CAD, GERD, neuropathy, NAFLD, colon polyps, chronic pain, hx of TI, HTN, HLD, male who initially presented to on 10/23 following a fall, suffering left humerus fracture as well as s/p knee injection on 10/22 as an
outpatient. He was very agitated and confused on arrival, found to have elevated LFTS. GI initially asksed to see him on arrival, then consult cancelled as labs consistent with rhabdomyolysis, aspiration of knee effusion c/w pseudoseptic arthritis.
GI asked to reevaluate patient on 10/27 due to persistence/worsening in LFTs despite improvement in rhabdo.He does report taking 2g of tylenol daily for his chronic pain as an outpatient.
Abdominal US w/ dopplers show patent vasculature, normal liver with some sludge in the gallbladder.
Overall LFT pattern consistent with rhabdo, possibly multifactorial given daily tylenol use. Coags normal. I am optimistic we will see improvement in his liver enzymes in the next 24-48 hours. If no improvement, will expand liver workup.
HAV IgG positive (reflects immunity)
HBsAg, HBsAb, HBcAb, HCV negative
HBsAb neg --> lacks immunity, recommend vaccination as an outpatient
Will await AM lab results.
Subjective
Subjective
Date of Service: October 28, 2024
Patient seen in follow-up, reports he had a difficult night, unable to get comfortable.
Objective
Data Reviewed
Laboratory Data:
Laboratory Results
10/28/24 07:05
Laboratory Results
PT 13.9 Sec (11.4-14.6) 10/28/24 07:05
INR 1.04 10/28/24 07:05
APTT 37.2 Sec (23.4-35.0) H 10/23/24 17:34
Magnesium 1.9 mg/dl (1.6-2.3) 10/27/24 07:10
Total Bilirubin 1.6 mg/dl (0.2-1.3) H 10/27/24 07:10
AST 622 U/L (17-59) H* 10/27/24 07:10
ALT 443 U/L (0-50) H 10/27/24 07:10
Alkaline Phosphatase 156 U/L (38-126) H 10/27/24 07:10
Vital Signs and I&O:
Vital Signs
Temp Pulse Resp BP Pulse Ox
97.5 F 81 18 159/86 96
10/28/24 07:45 10/28/24 07:45 10/28/24 07:45 10/28/24 07:45 10/28/24 07:45
I&O
10/27/24 10/28/24 10/29/24
06:59 06:59 06:59
Intake Total 2160 / 2160 3600 / 3600
Output Total 6075 / 6075 3025 / 3025
Balance -3915 / -3915 575 / 575
Physical Exam
Physical Exam
GI: Soft, Non Distended, Non Tender and Normal Bowel Sounds
[2024-10-28 08:53] LABS: ALT (SGPT) 295 U/L (0-50); AST (SGOT) 203 U/L (17-59); Albumin 2.8 g/dl (3.5-5.0); Alkaline Phosphatase 127 U/L (38-126); Blood Urea Nitrogen 19 mg/dl (9-20); Calcium 8.4 mg/dl (8.4-10.2); Carbon Dioxide 26 mmol/L (22-30); Chloride 100 mmol/L (98-107); Creatine Phosphokinase 166 U/L (55-170); Direct Bilirubin 0.2 mg/dl (0.0-0.4); Estimated Creatinine Clearance 84 ml/min; Glucose 107 mg/dl (70-99); LDH 303 U/L (120-246); Potassium 3.3 mmol/L (3.5-5.1); Sodium 136 mmol/L (135-145); Total Bilirubin 1.6 mg/dl (0.2-1.3); Total Protein 5.5 g/dl (6.3-8.2); eGFR > 60.00
[2024-10-28 10:25] LABS: Magnesium 1.7 mg/dl (1.6-2.3); Phosphorus 3.4 mg/dl (2.5-4.5)
[2024-10-28] MEDS: KCL 40 MEQ PO (10:32)
--- NOTE | 2024-10-28 10:35 | W.PN.ID1 ---
Date of Service
Date of Service: October 28, 2024
Today's Communication
cultures remain negative, lyme serology negative
stable for dc from ID perspective
Assessment / Plan
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
History of C difficile 2010
Elevated CPK/rhabdo
Transaminitis
Pain lumbar spine
Delirium
- body fluid culture remain negative, preliminary
- blood cultures remain negative
- agree with stopping antibiotics - follow clinically
- lyme serology negative
- hep A (prior vax or exposure), not immune to hep B/C
- transaminitis attributed to rhabdo
- brain MRI normal
stable for dc from ID perspective
Chief Complaint
-: Other (pseudogout)
Subjective / Review of Systems
afebrile
bp stable
no events overnight
in good spirits
Vital Signs / Physical Exam
Vital Signs
Vital Signs
Temp Pulse Resp BP Pulse Ox
97.5 F 81 18 159/86 96
10/28/24 07:45 10/28/24 07:45 10/28/24 07:45 10/28/24 07:45 10/28/24 08:00
Physical Exam
Constitutional: No Acute Distress
Cardiovascular: Regular Rate and S1/S2; Negative Murmur or Rub
Pulmonary: Clear and Symmetric; Negative Wheezes or Rales
Gastrointestinal: Soft, Non Tender, Non Distended and Normal Bowel Sounds
Musculoskeletal: Other (no knee swelling - warmth or tenderness)
Skin: Warm and Dry; Negative Rash or Jaundice
Objective Data
Lab Data
Lab Results
10/28/24 07:05
10/28/24 07:05
PT 13.9 Sec (11.4-14.6) 10/28/24 07:05
INR 1.04 10/28/24 07:05
APTT 37.2 Sec (23.4-35.0) H 10/23/24 17:34
Estimated Creat Clear 84 ml/min 10/28/24 07:05
Lactic Acid 1.3 mmol/L (0.7-2.0) 10/24/24 18:31
Total Bilirubin 1.6 mg/dl (0.2-1.3) H 10/28/24 07:05
AST 203 U/L (17-59) H 10/28/24 07:05
ALT 295 U/L (0-50) H 10/28/24 07:05
Alkaline Phosphatase 127 U/L (38-126) H 10/28/24 07:05
Most recent labs reviewed.
Micro Results:
10/25/24 13:39 Blood Culture - Preliminary
Blood/Venous No Growth in 48 hours- Final report to follow
10/25/24 13:32 Blood Culture - Preliminary
Blood/Venous No Growth in 48 hours- Final report to follow
10/24/24 13:15 Anaerobic Culture - Preliminary
Joint Fluid Culture pending. Anaerobic cultures are examined after 3
days incubation. Additional information to follow.
10/24/24 13:14 Body Fluid Culture - Preliminary
Joint Fluid No Growth After 72 Hours
Gram Stain - Preliminary
10/25/24 09:42 Blood Parasites Smear - Final
Blood/Venous No blood parasites seen.
10/23/24 16:36 Urine Culture - Final
Urine NO GROWTH
10/23/24 17:34 Influenza Types A & B (SARBJIT) - Final
Nasal Swab Negative for Influenza A & B, NAAT
Negative results must be combined with clinical observations
and patient history.
Nucleic Acid Amplification test (NAAT)performed on the
[employer] platform.
--- NOTE | 2024-10-28 11:15 | W.PN.HOSP.TC ---
Today's Communication/Plan
-
psych, PT/OT and d/c based on their eval
Assessment / Plan
Assessment / Plan
79yo M with PMHx of b/l renal artery stenting, CAD s/.p CABG, 1st degree AVB, HTN, HLD, HTN, neuropathy fell 3 days ago and was found to have Impacted fracture, neck/head, proximal left humerus, sling placed and patient sent home. Pain gradually
worsened and also developed L hip pain with L knee swelling. Saw in the clinic, deemed to have not sufficient fluid for joint aspiration. Knee is swollen, not red and not hot. Brought to ED 2/2 pain mostly on LLE causing significant
confusion. Also concern for LLL pneumonia and UTI however ruled out based on absence of respiratory symptoms and neg urine Cx. Mentation improved, pending psychiatry and PT/OT for d/c. Outpatient ortho in 1-2 weeks
A/P:
#Impacted fracture, neck/head, proximal left humerus
#LLE hip pain
#L knee swelling with large effusion, crystal arthropathy (CPPD)
#LLE pain
Lactate WNL, dorsalis pedis on both feet palpable, no toe discoloration
US neg for DVT
Pain gmt - IV Dilaudid/Toradol
XR L hip/knee - no fracture
Ortho consult: s/p L knee arthrocentesis, Cx prelim neg, significant inflammatory cells, calcium pyrophosphate crystals
Vanco/Zosyn stopped since developed rash reaction on back, unclear if from Abx but with neg joint Cx and with low suspicion by ID - reasonable to stop as risk overweight benefit. Cultures remain negative
Lyme neg
#ruled out UTI
#ruled out LLL pneumonia
Bcx neg to date
COVID-19 and Influenza neg
ID evaluated -no further Abx advised, signed off
#depression
no SI
Psych requested
#Mild leukocytopenia
resolved
suspect reactive
#chronic monocytosis
discussed with son - outpatient director of email marketing advised if not seen by yet
Since at least 2007
#Lower back pain - crinic with chronic b/l feet numbness
#Old 90% anterior wedge compression fracture of T12
Outpatient neuroSx
CT lumbar spine, multilevel DJD, no cord compression, but significant nerve impingements
#Toxic metabolic encephalopathy vs pain-induced encephalopathy
Head CT - no abnormality, MRI head without acute findings
can be 2/2 pain vs infection
TSH, ammonia WNL
Neurology: most likely pain and iatrogenic induced with hyponatremia on admission, thiamine
#Rhabdomyolysis
#Transaminitis 2/2 rhabdo
#Indirect bilirubinemia 2/2 rhabdo
Improving
No biliary pathology on CT abd
follow LFT
hepatitis panel neg, HepA immunity seen
GI consult
follow LDH
No over signs of hemolysis on CBC
most likely hematoma resorption 2/2 large L shoulder bruise
#Elevated LDH
#Anemia
ANTONELLA neg
most likely 2/2 trauma as significant bruising around L shoulder
follow CBC
LDH mildly elevated most likely 2/2 hematoma, as also high haptoglobin (acute reactant). No concern for microvascular hemolysis, Croombs neg
Blood parasite screen neg
#Hyponatremia
#VIJAY
#Hx of b/l renal stenting
#Acute urinary retention
Coates
VIJAY resolved on hydration - no concern for stent occlusion at this time
IVF
Serial BMP
Hold HCTZ
#Aortic root dilation
#CAD
#HLD
#Essential HTN
cont home meds
Control BP with hydralazine
#L kidney cyst
#Nephrolithiasis non-obstructing
hydrate
outpatient urology f/u
DVT ppx hep
I have spent at least 55min reviewing chart, test results, communication with consultants, family and direct patient care
Anticipated Discharge: Within 24 hours
Subjective/Interval History
-
Date of Service: October 28, 2024
Objective Data
-
Labs:
Laboratory Results
10/28/24
07:05
WBC 6.8
Hgb 10.9 L
Hct 31.7 L
Plt Count 238
PT 13.9
INR 1.04
Sodium 136
Potassium 3.3 L
Chloride 100
Carbon Dioxide 26
BUN 19
Creatinine 0.8
Glucose 107 H
Calcium 8.4
Total Bilirubin 1.6 H
AST 203 H
ALT 295 H
Alkaline Phosphatase 127 H
Vital Signs:
Vital Signs
Temp Pulse Resp BP Pulse Ox
97.5 F 81 18 159/86 96
10/28/24 07:45 10/28/24 07:45 10/28/24 07:45 10/28/24 07:45 10/28/24 08:00
I&O
10/27/24 10/28/24 10/29/24
06:59 06:59 06:59
Intake Total 2160 / 2160 3600 / 3600
Output Total 6075 / 6075 3025 / 3025
Balance -3915 / -3915 575 / 575
Review of Systems
-
History Source: Patient
All other systems: Reviewed and negative
Physical Exam
-
General: No Apparent Distress
HEENT: Normocephalic
Respiratory: Clear to Auscultation
Cardiac: Regular Rhythm
GI: Soft, Nontender and Nondistended
Musculoskeletal: No Clubbing, No Cyanosis and No Edema
Neuro: Awake, Alert, Oriented and AO x 3
Psych: Calm
[2024-10-28] MEDS: NEURONTIN 300 MG PO (11:43)
[2024-10-28] MEDS: NORVASC 5 MG PO (12:21)
[2024-10-28] MEDS: TYLENOL 650 MG PO ×2 (12:21→16:52)
--- NOTE | 2024-10-28 12:40 | CM ---
Patient seen bedside with daughter, discussed PT recommendation of acute rehab, patient and daughter agreeable, PMR consulted. CM will send referral to [facility]. CM will continue to follow for all discharge planning needs.
Plan; PMR consulted, referral to [facility].
--- NOTE | 2024-10-28 13:49 | CS.PSYCHR ---
Consult Summary - Psychiatry
-
Pt is a 79 yo male admitted with pain, confusion, dehydration, recent fall with L proximal humerus fx. Pt noted to be confused and anxious on 10/24/24, was given Zyprexa 2.5 mg IM once. Confusion was thought to be due to Oxycodone and Valium
combination from home meds. Pt had one dose of prn Ativan 0.5 mg yesterday 10/27. Psychiatry asked to evaluate for depression. Pt seen with dtr present, reports he has felt more depressed over the past couple years, due to loss of mobility from a
balance problem, etiology uncertain. Pt states he saw 2 Neurologists without benefit. He has a new PCP and has another appointment for later this year with Neurology. Pt used to bike, play golf, lived in [place]; has not been able to golf for 2
years. He was walking 1 1/2 miles per day until recently, states he tends to think about past regrets when walking, has had crying spells since being here at . Pt does not want a medication for depression, denies severe symptoms, denies SI. Pt
reports reading about how to combat depression, plans to try getting new hobbies, activities. He tried therapy once years ago and did not have a good experience.
Psych Hx: denies hx of significant depression, never on medication
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 Has not been able to do his usual activities due to balance issues
MSE: alert, oriented, calm, cooperative. Affect full, appropriate, able to joke, mood dysphoric. No signs of psychosis. Speech coherent, thought clear. Insight fair
Imp: Adjustment d/o with depression
Rec: Outpatient therapy, when medically stable
Will follow loosely
[2024-10-28 15:50] VITALS: BP 107/70
--- NOTE | 2024-10-28 16:49 | W.PN.UPDATE ---
Update Note
Progress Note Update
LFTs improving. Hold off on additional workup at this time.
GI will sign off, please call with questions.
[2024-10-28] MEDS: ASPIR LOW (ENTERIC COATED) 81 MG PO (21:14)
[2024-10-28] MEDS: CRESTOR 40 MG PO (21:14)
[2024-10-28] MEDS: NEURONTIN 600 MG PO (21:15)
[2024-10-28] MEDS: TENORMIN 25 MG PO (21:16)
[2024-10-28 23:22] VITALS: BP 126/72
[2024-10-29] MEDS: ULTRAM 50 MG PO ×2 (02:11→09:38)
[2024-10-29 07:27] VITALS: BP 141/73
--- NOTE | 2024-10-29 07:39 | W.PN.UPDATE ---
Update Note
Progress Note Update
Mr. Rose was resting comfortably upon my arrival. No complaints of left knee pain, left shoulder pain well controlled with sling immobilization.
-Plan for PMR consultation today with hopeful d/c to [facility].
-Cultures negative for growth at 72 hours, awaiting anaerobic cultures, but do not suspect septic arthritis based on exam.
-Continue PT/OT to tolerance with sling on LUE and NWB LUE. May WBAT on LLE.
-F/u in outpatient office in 1 week for repeat left shoulder x-rays.
-Will continue to follow cultures through completion.
UPDATE to note from earlier - final cultures with no anaerobes and no growth. Will sign off for patient now. F/u in outpatient office 1 week for repeat shoulder x-rays. Please reach out with any concerns prior to discharge.
[2024-10-29 08:32] LABS: ALT (SGPT) 222 U/L (0-50); AST (SGOT) 96 U/L (17-59); Albumin 3.2 g/dl (3.5-5.0); Alkaline Phosphatase 120 U/L (38-126); Direct Bilirubin 0.1 mg/dl (0.0-0.4); Total Bilirubin 1.6 mg/dl (0.2-1.3); Total Protein 5.9 g/dl (6.3-8.2)
[2024-10-29] MEDS: LIDOCAINE 4% PATCH 1 PATCH TOPICAL (08:51)
[2024-10-29] MEDS: REFRESH EYE DROPS (PF) 1 DROPS BOTH EYES ×2 (08:51→20:57)
[2024-10-29] MEDS: BICITRA 15 ML PO ×2 (08:52→20:55)
[2024-10-29] MEDS: HEPARIN 5000 UNITS SC ×3 (08:52→23:07)
[2024-10-29] MEDS: VITAMIN B1 100 MG PO ×2 (08:53→20:56)
[2024-10-29] MEDS: PROTONIX 40 MG PO ×2 (08:53→20:56)
[2024-10-29] MEDS: PLAVIX 75 MG PO (08:53)
[2024-10-29] MEDS: NORVASC 5 MG PO (08:53)
[2024-10-29] MEDS: RESTASIS 0.05% OPHTHALMIC EMULSION 1 DROPS BOTH EYES ×2 (08:53→20:56)
[2024-10-29] MEDS: ZETIA 10 MG PO (08:53)
[2024-10-29] MEDS: INSPRA 25 MG PO (08:54)
[2024-10-29] MEDS: PEPCID 20 MG PO (08:54)
[2024-10-29] MEDS: CLOBETASOL PROPIONATE 0.05% 1 APPLIC TOPICAL (08:55)
[2024-10-29] MEDS: STERILE WATER FOR INJECTION IV (08:56)
[2024-10-29] MEDS: TYLENOL 650 MG PO ×4 (09:37→22:12)
--- NOTE | 2024-10-29 10:37 | CM ---
Chart reviewed and request for acute rehab noted, will await PM&R evaluation/recommendations, patient was admitted with left humerus fx, patient with sling immobilizer.
Referral sent to [facility], and message left with admissions this am to discuss.
Plan; Await determination from PM&R on acute rehab.
[2024-10-29] MEDS: NEURONTIN 300 MG PO (11:41)
--- NOTE | 2024-10-29 13:29 | W.PN.ID1 ---
Date of Service
Date of Service: October 29, 2024
Today's Communication
- body fluid culture finalized negative
ID service will no longer actively follow this patient please recall for further questions
Assessment / Plan
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
History of C difficile 2009
Elevated CPK/rhabdo
Transaminitis
Pain lumbar spine
Delirium
- body fluid culture finalized negative
ID service will no longer actively follow this patient please recall for further questions
Chief Complaint
-: Other (pseudogout)
Subjective / Review of Systems
afebrile
bp stable
no events overnight
Vital Signs / Physical Exam
Vital Signs
Vital Signs
Temp Pulse Resp BP Pulse Ox
98.4 F 70 18 141/73 100
10/29/24 07:27 10/29/24 07:27 10/29/24 07:27 10/29/24 08:53 10/29/24 07:27
Physical Exam
Constitutional: No Acute Distress
Cardiovascular: Regular Rate
Pulmonary: Symmetric
Gastrointestinal: Non Distended
Neurological: Awake
Objective Data
Lab Data
Lab Results
10/28/24 07:05
10/28/24 07:05
PT 13.9 Sec (11.4-14.6) 10/28/24 07:05
INR 1.04 10/28/24 07:05
APTT 37.2 Sec (23.4-35.0) H 10/23/24 17:34
Estimated Creat Clear 84 ml/min 10/28/24 07:05
Lactic Acid 1.3 mmol/L (0.7-2.0) 10/24/24 18:31
Total Bilirubin 1.6 mg/dl (0.2-1.3) H 10/29/24 07:34
AST 96 U/L (17-59) H 10/29/24 07:34
ALT 222 U/L (0-50) H 10/29/24 07:34
Alkaline Phosphatase 120 U/L (38-126) 10/29/24 07:34
Most recent labs reviewed.
Micro Results:
10/24/24 13:14 Body Fluid Culture - Final
Joint Fluid No Growth After 72 Hours
Gram Stain - Final
10/24/24 13:15 Anaerobic Culture - Final
Joint Fluid NO ANAEROBES ISOLATED
10/25/24 13:39 Blood Culture - Preliminary
Blood/Venous No Growth in 72 hours- Final report to follow
10/25/24 13:32 Blood Culture - Preliminary
Blood/Venous No Growth in 72 hours- Final report to follow
10/25/24 09:42 Blood Parasites Smear - Final
Blood/Venous No blood parasites seen.
10/23/24 16:36 Urine Culture - Final
Urine NO GROWTH
10/23/24 17:34 Influenza Types A & B (SARBJIT) - Final
Nasal Swab Negative for Influenza A & B, NAAT
Negative results must be combined with clinical observations
and patient history.
Nucleic Acid Amplification test (NAAT)performed on the
[employer] platform.
[2024-10-29 15:25] VITALS: BP 91/58
--- NOTE | 2024-10-29 17:08 | W.PN.HOSP.TC ---
Today's Communication/Plan
-
Assessment / Plan
Assessment / Plan
79yo M with PMHx of b/l renal artery stenting, CAD s/.p CABG, 1st degree AVB, HTN, HLD, HTN, neuropathy fell 3 days ago and was found to have Impacted fracture, neck/head, proximal left humerus, sling placed and patient sent home. Pain gradually
worsened and also developed L hip pain with L knee swelling. Saw in the clinic, deemed to have not sufficient fluid for joint aspiration. Knee is swollen, not red and not hot. Brought to ED 2/2 pain mostly on LLE causing significant
confusion. Also concern for LLL pneumonia and UTI however ruled out based on absence of respiratory symptoms and neg urine Cx. Mentation improved, pending psychiatry and PT/OT for d/c. Outpatient ortho in 1-2 weeks
A/P:
#Impacted fracture, neck/head, proximal left humerus
-Conservative management, continue immobilization with sling
-Awaiting PM&R evaluation and hopeful acute rehab placement
-Outpatient orthopedic follow-up in 1 week for repeat left shoulder x-rays
-Nonweightbearing to left upper extremity, PT/OT to tolerance with left upper extremity sling
#LLE hip pain
#L knee swelling with large effusion, crystal arthropathy (CPPD)
-Ortho consult: s/p L knee arthrocentesis, Cx prelim neg, significant inflammatory cells, calcium pyrophosphate crystals
-No evidence of infection or fracture
-Weightbearing as tolerated
-Continued orthopedic follow-up in outpatient setting
# Adjustment disorder with depression
-no SI
-Patient frustrated about lack of mobility impacting quality of life
-Evaluated by psych, patient declines treatment with medication at this time, recommend outpatient therapy
#Mild leukocytopenia
resolved
suspect reactive
#chronic monocytosis
discussed with son - outpatient clerk travel reservations advised if not seen by yet
Since at least 2007
#Lower back pain - crinic with chronic b/l feet numbness
#Old 90% anterior wedge compression fracture of T12
Outpatient neuroSx
#Toxic metabolic encephalopathy vs pain med-induced encephalopathy
-Head CT - no abnormality, MRI head without acute findings
-Resolved
-TSH, ammonia WNL
-Neurology following, no specific inventions
#Rhabdomyolysis
#Transaminitis 2/2 rhabdo
#Indirect bilirubinemia 2/2 rhabdo
Improving
No biliary pathology on CT abd
follow LFT
hepatitis panel neg, HepA immunity seen
GI consult
follow LDH
No over signs of hemolysis on CBC
most likely hematoma resorption 2/2 large L shoulder bruise
#Elevated LDH
#Anemia
ANTONELLA neg
most likely 2/2 trauma as significant bruising around L shoulder
follow CBC
LDH mildly elevated most likely 2/2 hematoma, as also high haptoglobin (acute reactant). No concern for microvascular hemolysis, Croombs neg
Blood parasite screen neg
#Hyponatremia
-Resolved
#VIJAY
-Resolved
#Hx of b/l renal stenting
#Acute urinary retention
-Coates
-VIJAY resolved on hydration - no concern for stent occlusion at this time
-Hold HCTZ
#Aortic root dilation
-Outpatient follow-up for surveillance
#CAD
#HLD
#Essential HTN
cont home meds
Control BP with hydralazine
#L kidney cyst
#Nephrolithiasis non-obstructing
hydrate
outpatient urology f/u
DVT ppx hep
I have spent at least 55min reviewing chart, test results, communication with consultants, family and direct patient care
Anticipated Discharge: 24 - 48 hours
Subjective/Interval History
-
Date of Service: October 29, 2024
Mr. Rose was seen and examined at bedside this morning. He feels generally well and is eagerly awaiting finalization of plans for rehabilitation following hospital discharge.
Objective Data
-
Labs:
Laboratory Results
10/29/24
07:34
Total Bilirubin 1.6 H
AST 96 H
ALT 222 H
Alkaline Phosphatase 120
Vital Signs:
Vital Signs
Temp Pulse Resp BP Pulse Ox
98.3 F 70 18 91/58 95
10/29/24 15:25 10/29/24 15:25 10/29/24 15:25 10/29/24 15:25 10/29/24 15:25
I&O
10/28/24 10/29/24 10/30/24
06:59 06:59 06:59
Intake Total 3600 / 3600 720 / 720
Output Total 3025 / 3025 1020 / 1020
Balance 575 / 575 -300 / -300
Review of Systems
-
History Source: Patient
All other systems: Reviewed and negative
Musculoskeletal: Reports Other (Left shoulder pain)
Physical Exam
-
General: Well Developed and No Apparent Distress
HEENT: Normocephalic and Atraumatic
Cardiac: Regular Rhythm and S1/S2
GI: Soft and Nontender
Musculoskeletal: Other (Left arm immobilized with sling)
Skin: Warm and Dry
Neuro: Awake and Alert
Psych: Calm and Intact Judgement/Insight
[2024-10-29] MEDS: ASPIR LOW (ENTERIC COATED) 81 MG PO (20:56)
[2024-10-29] MEDS: CRESTOR 40 MG PO (20:57)
[2024-10-29] MEDS: NEURONTIN 600 MG PO (20:57)
[2024-10-29] MEDS: TENORMIN 25 MG PO (20:57)
[2024-10-29 23:05] VITALS: BP 143/69
[2024-10-30] MEDS: TYLENOL 650 MG PO ×5 (02:41→20:19)
[2024-10-30] MEDS: CLOBETASOL PROPIONATE 0.05% 1 APPLIC TOPICAL (07:26)
[2024-10-30] MEDS: BICITRA 15 ML PO ×2 (07:27→19:50)
[2024-10-30] MEDS: HEPARIN 5000 UNITS SC (07:27)
[2024-10-30] MEDS: LIDOCAINE 4% PATCH 1 PATCH TOPICAL (07:27)
[2024-10-30] MEDS: VITAMIN B1 100 MG PO ×2 (07:28→20:12)
[2024-10-30] MEDS: ZETIA 10 MG PO (07:28)
[2024-10-30] MEDS: STERILE WATER FOR INJECTION IV (07:28)
[2024-10-30] MEDS: NORVASC 5 MG PO (07:29)
[2024-10-30] MEDS: REFRESH EYE DROPS (PF) 1 DROPS BOTH EYES ×2 (07:29→19:51)
[2024-10-30] MEDS: INSPRA 25 MG PO (07:30)
[2024-10-30] MEDS: RESTASIS 0.05% OPHTHALMIC EMULSION 1 DROPS BOTH EYES ×2 (07:30→20:07)
[2024-10-30] MEDS: PROTONIX 40 MG PO ×2 (07:30→19:51)
[2024-10-30] MEDS: PEPCID 20 MG PO (07:30)
[2024-10-30] MEDS: PLAVIX 75 MG PO (07:30)
[2024-10-30 08:00] VITALS: BP 131/67
[2024-10-30] MEDS: NEURONTIN 300 MG PO (11:30)
--- NOTE | 2024-10-30 15:12 | CM ---
CM reviewed with Darion, patient does not have acute rehab diagnosis. Patient seen bedside with daughter and , requesting referral to [facility], patient will be staying with daughter at [address] [place] [address], confirmed with [facility], able to
accept. Family requesting hospital bed, referral sent to [facility], unable to deliver same day. Update to Nurse and Resident. CM will continue to follow for all discharge planning needs.
Plan: home with daughter, [facility], hospital bed faxed to [facility] Fax:
--- NOTE | 2024-10-30 15:17 | W.PN.HOSP.TC ---
Today's Communication/Plan
-
Assessment / Plan
Assessment / Plan
79yo M with PMHx of b/l renal artery stenting, CAD s/.p CABG, 1st degree AVB, HTN, HLD, HTN, neuropathy fell 3 days ago and was found to have Impacted fracture, neck/head, proximal left humerus, sling placed and patient sent home. Pain gradually
worsened and also developed L hip pain with L knee swelling. Saw in the clinic, deemed to have not sufficient fluid for joint aspiration. Knee is swollen, not red and not hot. Brought to ED 2/2 pain mostly on LLE causing significant
confusion. Also concern for LLL pneumonia and UTI however ruled out based on absence of respiratory symptoms and neg urine Cx. Mentation improved, pending psychiatry and PT/OT for d/c. Outpatient ortho in 1-2 weeks
A/P:
#Impacted fracture, neck/head, proximal left humerus
-Conservative management, continue immobilization with sling
-Awaiting PM&R evaluation and hopeful acute rehab placement
-Outpatient orthopedic follow-up in 1 week for repeat left shoulder x-rays
-Nonweightbearing to left upper extremity, PT/OT to tolerance with left upper extremity sling
-Would benefit from a hospital bed at home, requires positioning of the body in ways not possible with an ordinary bed in order to alleviate pain
#LLE hip pain
#L knee swelling with large effusion, crystal arthropathy (CPPD)
-Ortho consult: s/p L knee arthrocentesis, Cx prelim neg, significant inflammatory cells, calcium pyrophosphate crystals
-No evidence of infection or fracture
-Weightbearing as tolerated
-Continued orthopedic follow-up in outpatient setting
# Adjustment disorder with depression
-no SI
-Patient frustrated about lack of mobility impacting quality of life
-Evaluated by psych, patient declines treatment with medication at this time, recommend outpatient therapy
#Mild leukocytopenia
resolved
suspect reactive
#chronic monocytosis
discussed with son - outpatient rn child advised
Since at least 2007
#Lower back pain - chronic b/l feet numbness
#Old 90% anterior wedge compression fracture of T12
Outpatient neuroSx
#Toxic metabolic encephalopathy vs pain med-induced encephalopathy
-Head CT - no abnormality, MRI head without acute findings
-Resolved
-TSH, ammonia WNL
-Neurology following, no specific inventions
#Rhabdomyolysis
-Resolved
#Transaminitis 2/2 rhabdo
#Indirect bilirubinemia 2/2 rhabdo
Improved
No biliary pathology on CT abd
follow LFT
hepatitis panel neg, HepA immunity seen
GI consult
follow LDH
No over signs of hemolysis on CBC
most likely hematoma resorption 2/2 large L shoulder bruise
#Elevated LDH
#Anemia
ANTONELLA neg
most likely 2/2 trauma as significant bruising around L shoulder
follow CBC
LDH mildly elevated most likely 2/2 hematoma, as also high haptoglobin (acute reactant). No concern for microvascular hemolysis, Croombs neg
Blood parasite screen neg
#Hyponatremia
-Resolved
#VIJAY
-Resolved
#Hx of b/l renal stenting
#Acute urinary retention
-Coates
-VIJAY resolved on hydration - no concern for stent occlusion at this time
-Hold HCTZ
#Aortic root dilation
-Outpatient follow-up for surveillance
#CAD
#HLD
#Essential HTN
cont home meds
Control BP with hydralazine
#L kidney cyst
#Nephrolithiasis non-obstructing
hydrate
outpatient urology f/u
DVT ppx hep
I have spent at least 55min reviewing chart, test results, communication with consultants, family and direct patient care
Anticipated Discharge: Within 24 hours
Subjective/Interval History
-
Date of Service: October 30, 2024
Mr. Rose was seen and examined at bedside this morning. No acute events overnight. Comfortable.
Objective Data
-
Vital Signs:
Vital Signs
Temp Pulse Resp BP Pulse Ox
98.4 F 71 18 131/67 99
10/30/24 08:00 10/30/24 08:00 10/30/24 08:00 10/30/24 08:00 10/30/24 08:00
I&O
10/29/24 10/30/24 10/31/24
06:59 06:59 06:59
Intake Total 720 / 720 720 / 720
Output Total 1020 / 1020 1950 / 1950
Balance -300 / -300 -1230 / -1230
Review of Systems
-
History Source: Patient
All other systems: Reviewed and negative
Musculoskeletal: Reports Joint Pain (Left shoulder pain)
Physical Exam
-
General: No Apparent Distress and Comfortable
HEENT: Normocephalic and Atraumatic
Respiratory: Clear to Auscultation and Non Labored Respirations
Cardiac: Regular Rhythm and S1/S2
GI: Soft and Nontender
Musculoskeletal: No Edema and Other (Left arm in sling)
Skin: Warm and Dry
Neuro: Awake and Alert
Psych: Calm and Intact Judgement/Insight
[2024-10-30 16:00] VITALS: BP 148/73
[2024-10-30] MEDS: HEPARIN SC ×2 (16:16→23:57)
[2024-10-30 16:31] VITALS: BP 141/76; PULSE 88; O2SAT 98
[2024-10-30 20:00] VITALS: BP 132/85
[2024-10-30] MEDS: ASPIR LOW (ENTERIC COATED) 81 MG PO (21:33)
[2024-10-30] MEDS: NEURONTIN 600 MG PO (21:33)
[2024-10-30] MEDS: CRESTOR 40 MG PO (21:44)
[2024-10-30] MEDS: TENORMIN 25 MG PO (21:44)
[2024-10-30 23:13] VITALS: BP 115/67
[2024-10-30] MEDS: ZOFRAN 4 MG IV (23:49)
[2024-10-31 00:30] LABS: Blood Urea Nitrogen 28 mg/dl (9-20); Calcium 9.2 mg/dl (8.4-10.2); Carbon Dioxide 22 mmol/L (22-30); Chloride 100 mmol/L (98-107); Estimated Creatinine Clearance 67 ml/min; Glucose 167 mg/dl (70-99); Magnesium 1.9 mg/dl (1.6-2.3); Potassium 4.1 mmol/L (3.5-5.1); Sodium 136 mmol/L (135-145); eGFR > 60.00
[2024-10-31 00:39] LABS: Hemoglobin 12.6 g/dL (13.0-18.0); Mean Corpuscular Hgb 32.6 pg (27.0-31.0); Mean Platelet Volume 9.3 fL (7.4-10.4); Platelet Count 387 10^3/uL (130-400); Red Blood Cell Count 3.87 10^6/uL (4.70-6.10); Red Cell Dist. Width 12.5 % (11.5-14.5); White Blood Cell Count 8.3 10^3/uL (4.8-10.8)
[2024-10-31] MEDS: TYLENOL 650 MG PO ×5 (02:10→22:45)
[2024-10-31] MEDS: NSS 1000 IV ×2 (03:08→18:01)
--- NOTE | 2024-10-31 03:08 | W.PN.UPDATE ---
Update Note
Progress Note Update
RN reported, patient with mild fever, c/o nauseous, vomited x2, and having loose stools. Patient reports he has hx of c-diff and worried he is dehydrated. 115/67 HR 107 T 99.2 and c/o chills, at 99% on RA. Abdomen tender, hypoactive BS.
Zofran IV 4mg x1 ordered
stool for Rebecca Virus and C diff send
labs send
NSS
NPO
--- NOTE | 2024-10-31 04:06 | PTCARENOTE ---
Pt at beginning of shift c/o N/V/D after eating fruit plate for dinner. Pt stated last time he felt like this was the last time he had the fruit plate. Pt having loose gelatinous stools and 2 episodes of vomiting. VS 115/67 HR 107 T 99.2 and c/o
chills, Satting at 99% on RA. RECREATION SUPERINTENDENT notified, new orders received to obtain stool sample for Cdiff and Norovirus, Labs obtained and IV fluids ordered to prevent dehydration. Pt to be NPO at breakfast. Pt continues with loose gelatinous stools at
present time, no c/o pain/chills and to be placed on enhanced precautions.
[2024-10-31 08:00] VITALS: BP 101/70
[2024-10-31] MEDS: RESTASIS 0.05% OPHTHALMIC EMULSION 1 DROPS BOTH EYES ×2 (08:38→20:18)
[2024-10-31] MEDS: PROTONIX 40 MG PO ×2 (08:38→20:18)
[2024-10-31] MEDS: LIDOCAINE 4% PATCH 1 PATCH TOPICAL (08:38)
[2024-10-31] MEDS: HEPARIN 5000 UNITS SC ×2 (08:38→16:05)
[2024-10-31] MEDS: VITAMIN B1 100 MG PO ×2 (08:38→20:18)
[2024-10-31] MEDS: BICITRA 15 ML PO ×2 (08:38→20:18)
[2024-10-31] MEDS: PEPCID 20 MG PO (08:38)
[2024-10-31] MEDS: NORVASC 5 MG PO (08:38)
[2024-10-31] MEDS: ZETIA 10 MG PO (08:38)
[2024-10-31] MEDS: INSPRA 25 MG PO (08:38)
[2024-10-31] MEDS: REFRESH EYE DROPS (PF) 1 DROPS BOTH EYES ×2 (08:39→20:18)
[2024-10-31] MEDS: CLOBETASOL PROPIONATE 0.05% 1 APPLIC TOPICAL (08:39)
[2024-10-31] MEDS: PLAVIX 75 MG PO (08:39)
--- NOTE | 2024-10-31 09:01 | VNURNOTE ---
Chart reviewed. Plan is patient to stay at daughter's in [place]. [facility] will close chart as pt will be signing on with [facility]/ [facility]. Liaison notified Rosa at [facility].
[2024-10-31] MEDS: STERILE WATER FOR INJECTION IV (09:23)
[2024-10-31] MEDS: NEURONTIN 300 MG PO (12:29)
--- NOTE | 2024-10-31 15:26 | W.PN.HOSP.TC ---
Today's Communication/Plan
-
Assessment / Plan
Assessment / Plan
79yo M with PMHx of b/l renal artery stenting, CAD s/.p CABG, 1st degree AVB, HTN, HLD, HTN, neuropathy fell 3 days prior to arrival and was found to have Impacted fracture, neck/head, proximal left humerus, sling placed and patient sent home. Pain
gradually worsened and also developed L hip pain with L knee swelling. Saw Dr. Doherty in the clinic, deemed to have not sufficient fluid for joint aspiration. Knee is swollen, not red and not hot. Brought to ED 2/2 pain mostly on LLE causing
significant confusion. Also concern for LLL pneumonia and UTI however ruled out based on absence of respiratory symptoms and neg urine Cx. Mentation improved, pending psychiatry and PT/OT for d/c. Outpatient ortho in 1-2 weeks
A/P:
#Impacted fracture, neck/head, proximal left humerus
-Conservative management, continue immobilization with sling
-Evaluated by PM&R who did not feel he qualifies for acute inpatient rehab, plan for discharge to home with family
-Outpatient orthopedic follow-up in 1 week for repeat left shoulder x-rays
-Nonweightbearing to left upper extremity, PT/OT to tolerance with left upper extremity sling
-Would benefit from a hospital bed at home, requires positioning of the body in ways not possible with an ordinary bed in order to alleviate pain
GI infection with norovirus:
-Developed nausea with vomiting and diarrhea overnight 10/30 and 10/31
-Stool studies positive for norovirus, negative for C. difficile
-Continue supportive care
-Isolation precautions
-IV fluids
-diet as tolerated
#LLE hip pain
#L knee swelling with large effusion, crystal arthropathy (CPPD)
-Ortho consult: s/p L knee arthrocentesis, Cx prelim neg, significant inflammatory cells, calcium pyrophosphate crystals
-No evidence of infection or fracture
-Weightbearing as tolerated
-Continued orthopedic follow-up in outpatient setting
# Adjustment disorder with depression
-no SI
-Patient frustrated about lack of mobility impacting quality of life
-Evaluated by psych, patient declines treatment with medication at this time, recommend outpatient therapy
#Mild leukocytopenia
resolved
suspect reactive
#chronic monocytosis
discussed with son - outpatient computer security manager advised
Since at least 2007
#Lower back pain - chronic b/l feet numbness
#Old 90% anterior wedge compression fracture of T12
Outpatient neuroSx
#Toxic metabolic encephalopathy vs pain med-induced encephalopathy
-Head CT - no abnormality, MRI head without acute findings
-Resolved
-TSH, ammonia WNL
-Neurology following, no specific inventions
#Rhabdomyolysis
-Resolved
#Transaminitis 2/2 rhabdo
#Indirect bilirubinemia 2/2 rhabdo
Improved
No biliary pathology on CT abd
follow LFT
hepatitis panel neg, HepA immunity seen
GI consult
follow LDH
No over signs of hemolysis on CBC
most likely hematoma resorption 2/2 large L shoulder bruise
#Elevated LDH
#Anemia
ANTONELLA neg
most likely 2/2 trauma as significant bruising around L shoulder
follow CBC
LDH mildly elevated most likely 2/2 hematoma, as also high haptoglobin (acute reactant). No concern for microvascular hemolysis, Croombs neg
Blood parasite screen neg
#Hyponatremia
-Resolved
#VIJAY
-Resolved
#Hx of b/l renal stenting
#Acute urinary retention
-Coates
-VIJAY resolved on hydration - no concern for stent occlusion at this time
-Hold HCTZ
#Aortic root dilation
-Outpatient follow-up for surveillance
#CAD
#HLD
#Essential HTN
cont home meds
Control BP with hydralazine
#L kidney cyst
#Nephrolithiasis non-obstructing
hydrate
outpatient urology f/u
DVT ppx hep
I have spent at least 55min reviewing chart, test results, communication with consultants, family and direct patient care
Anticipated Discharge: 24 - 48 hours
Subjective/Interval History
-
Date of Service: October 31, 2024
Mr. Rose was seen and examined at bedside this morning. He developed nausea with vomiting and multiple episodes of diarrhea overnight. He has been diagnosed with norovirus. He feels slightly better this morning than he did overnight but still
feels generally unwell compared to the previous 2 days.
Objective Data
-
Vital Signs:
Vital Signs
Temp Pulse Resp BP Pulse Ox
97.8 F 82 18 101/70 96
10/31/24 08:00 10/31/24 08:00 10/31/24 08:00 10/31/24 08:00 10/31/24 08:00
I&O
10/30/24 10/31/24 11/01/24
06:59 06:59 06:59
Intake Total 720 / 720 2320 / 2320
Output Total 1950 / 1950 1100 / 1100
Balance -1230 / -1230 1220 / 1220
Review of Systems
-
History Source: Patient
All other systems: Reviewed and negative
Constitutional: Reports Fatigue
Abdomen/GI: Reports Abdominal Pain, Nausea, Vomiting and Diarrhea
Musculoskeletal: Reports Joint Pain (Left shoulder pain)
Physical Exam
-
General: No Apparent Distress
HEENT: Normocephalic and Atraumatic
Respiratory: Clear to Auscultation and Non Labored Respirations
Cardiac: Regular Rhythm and S1/S2
GI: Soft and Nontender
Musculoskeletal: No Cyanosis, No Edema and Other (Left arm in sling)
Skin: Warm and Dry
Neuro: Awake and Alert
Psych: Calm and Intact Judgement/Insight
[2024-10-31 16:00] VITALS: BP 120/70
--- NOTE | 2024-10-31 16:35 | CM ---
CM reviewed chart, met with patients in [facility], discussed hospital bed will be delivered by [facility]. Patient positive for Norovirus at this time. Update to [facility] on discharge planning needs.
Plan; home with [facility], hospital bed per [facility] Fax:
[2024-10-31] MEDS: NEURONTIN 600 MG PO (22:40)
[2024-10-31] MEDS: TENORMIN 25 MG PO (22:40)
[2024-10-31] MEDS: HEPARIN SC (22:40)
[2024-10-31] MEDS: ASPIR LOW (ENTERIC COATED) 81 MG PO (22:45)
[2024-10-31] MEDS: CRESTOR 40 MG PO (22:45)
[2024-11-01] MEDS: TYLENOL 650 MG PO ×5 (03:02→20:10)
[2024-11-01] MEDS: NSS 1000 IV ×2 (06:36→08:36)
[2024-11-01 07:55] VITALS: BP 126/68
[2024-11-01] MEDS: REFRESH EYE DROPS (PF) 1 DROPS BOTH EYES ×2 (08:38→20:09)
[2024-11-01] MEDS: LIDOCAINE 4% PATCH 1 PATCH TOPICAL (08:38)
[2024-11-01] MEDS: PROTONIX 40 MG PO ×2 (08:38→20:08)
[2024-11-01] MEDS: INSPRA 25 MG PO (08:38)
[2024-11-01] MEDS: PEPCID 20 MG PO (08:40)
[2024-11-01] MEDS: BICITRA 15 ML PO (08:40)
[2024-11-01] MEDS: CLOBETASOL PROPIONATE 0.05% 1 APPLIC TOPICAL (08:41)
[2024-11-01] MEDS: RESTASIS 0.05% OPHTHALMIC EMULSION 1 DROPS BOTH EYES ×2 (08:42→20:09)
[2024-11-01] MEDS: PLAVIX 75 MG PO (08:42)
[2024-11-01] MEDS: DESENEX/MITRAZOL/ZEASORB 1 APPLIC TOPICAL ×2 (08:42→20:10)
[2024-11-01] MEDS: VITAMIN B1 100 MG PO ×2 (08:43→20:10)
[2024-11-01] MEDS: ZETIA 10 MG PO (08:43)
[2024-11-01] MEDS: NORVASC 5 MG PO (08:43)
[2024-11-01] MEDS: HEPARIN SC ×2 (09:11→11:56)
[2024-11-01] MEDS: STERILE WATER FOR INJECTION IV (09:11)
[2024-11-01] MEDS: NSS IV ×2 (09:12→14:03)
[2024-11-01 09:24] LABS: Blood Urea Nitrogen 31 mg/dl (9-20); Calcium 8.2 mg/dl (8.4-10.2); Carbon Dioxide 22 mmol/L (22-30); Chloride 101 mmol/L (98-107); Estimated Creatinine Clearance 74 ml/min; Glucose 95 mg/dl (70-99); Phosphorus 2.8 mg/dl (2.5-4.5); Potassium 3.8 mmol/L (3.5-5.1); Sodium 134 mmol/L (135-145); eGFR > 60.00
[2024-11-01] MEDS: NEURONTIN 300 MG PO (10:56)
[2024-11-01 15:00] VITALS: BP 139/69
--- NOTE | 2024-11-01 16:29 | W.PN.HOSP.TC ---
Today's Communication/Plan
-
Assessment / Plan
Assessment / Plan
Gen-AAOx3, NAD
HEENT-NC, AT, anicteric, clear oral mm
Neck-supple
CV-reg, no M, +S1/S2
Lungs-clear B/L
Abd-soft, NT, ND
Musculoskeletal-no edema, left arm in sling
Skin-warm and dry
Neuro-grossly non-focal
Psych-calm, cooperative
79yo M with PMHx of b/l renal artery stenting, CAD s/.p CABG, 1st degree AVB, HTN, HLD, HTN, neuropathy fell 3 days prior to arrival and was found to have Impacted fracture, neck/head, proximal left humerus, sling placed and patient sent home. Pain
gradually worsened and also developed L hip pain with L knee swelling. Saw Dr. Doherty in the clinic, deemed to have not sufficient fluid for joint aspiration. Knee is swollen, not red and not hot. Brought to ED 2/2 pain mostly on LLE causing
significant confusion. Also concern for LLL pneumonia and UTI however ruled out based on absence of respiratory symptoms and neg urine Cx. Mentation improved, pending psychiatry and PT/OT for d/c. Outpatient ortho in 1-2 weeks
A/P:
#Impacted fracture, neck/head, proximal left humerus
-Conservative management, continue immobilization with sling
-Evaluated by PM&R who did not feel he qualifies for acute inpatient rehab, plan for discharge to home with family when otherwise medically stable
-Outpatient orthopedic follow-up in 1 week for repeat left shoulder x-rays
-Nonweightbearing to left upper extremity, PT/OT to tolerance with left upper extremity sling
-Would benefit from a hospital bed at home, requires positioning of the body in ways not possible with an ordinary bed in order to alleviate pain
GI infection with norovirus:
-Developed nausea with vomiting and diarrhea overnight 10/30 and 10/31
-Stool studies positive for norovirus, negative for C. difficile
-Clinically improving but still having multiple episodes of loose stools daily
-Continue IV fluid and supportive care
-Isolation precautions
-diet as tolerated
#LLE hip pain
#L knee swelling with large effusion, crystal arthropathy (CPPD)
-Ortho consult: s/p L knee arthrocentesis, Cx prelim neg, significant inflammatory cells, calcium pyrophosphate crystals
-No evidence of infection or fracture
-Weightbearing as tolerated
-Continued orthopedic follow-up in outpatient setting
# Adjustment disorder with depression
-no SI
-Patient frustrated about lack of mobility impacting quality of life
-Evaluated by psych, patient declines treatment with medication at this time, recommend outpatient therapy
#Mild leukocytopenia
resolved
suspect reactive
#chronic monocytosis
discussed with son - outpatient financial coordinator advised
Since at least 2007
#Lower back pain - chronic b/l feet numbness
#Old 90% anterior wedge compression fracture of T12
Outpatient neuroSx
#Toxic metabolic encephalopathy vs pain med-induced encephalopathy
-Head CT - no abnormality, MRI head without acute findings
-Resolved
-TSH, ammonia WNL
-Neurology following, no specific inventions
#Rhabdomyolysis
-Resolved
#Transaminitis 2/2 rhabdo
#Indirect bilirubinemia 2/2 rhabdo
Improved
No biliary pathology on CT abd
follow LFT
hepatitis panel neg, HepA immunity seen
GI consult
follow LDH
No over signs of hemolysis on CBC
most likely hematoma resorption 2/2 large L shoulder bruise
#Elevated LDH
#Anemia
ANTONELLA neg
most likely 2/2 trauma as significant bruising around L shoulder
follow CBC
LDH mildly elevated most likely 2/2 hematoma, as also high haptoglobin (acute reactant). No concern for microvascular hemolysis, Croombs neg
Blood parasite screen neg
#Hyponatremia
-Resolved
#VIJAY
-Resolved
#Hx of b/l renal stenting
#Acute urinary retention
-Coates
-VIJAY resolved on hydration - no concern for stent occlusion at this time
-Hold HCTZ
#Aortic root dilation
-Outpatient follow-up for surveillance
#CAD
#HLD
#Essential HTN
cont home meds
Control BP with hydralazine
#L kidney cyst
#Nephrolithiasis non-obstructing
hydrate
outpatient urology f/u
DVT ppx hep
I have spent at least 55min reviewing chart, test results, communication with consultants, family and direct patient care
Anticipated Discharge: 24 - 48 hours
Subjective/Interval History
-
Date of Service: November 01, 2024
Mr. Rose was seen and examined at bedside this morning. Continues to have multiple loose movements overnight. However feels better today than he did 24 hours ago and is ready to attempt p.o. diet.
Objective Data
-
Labs:
Laboratory Results
11/01/24
07:52
Sodium 134 L
Potassium 3.8
Chloride 101
Carbon Dioxide 22
BUN 31 H
Creatinine 0.9
Glucose 95
Calcium 8.2 L
Vital Signs:
Vital Signs
Temp Pulse Resp BP Pulse Ox
98.1 F 79 18 139/69 99
11/01/24 15:00 11/01/24 15:00 11/01/24 15:00 11/01/24 15:00 11/01/24 15:00
I&O
10/31/24 11/01/24 11/02/24
06:59 06:59 06:59
Intake Total 2320 / 2320 420 / 420 450 / 450
Output Total 1100 / 1100 125 / 125
Balance 1220 / 1220 295 / 295 450 / 450
Review of Systems
-
History Source: Patient
All other systems: Reviewed and negative
Constitutional: Reports No Appetite
Abdomen/GI: Reports Nausea and Diarrhea
Musculoskeletal: Reports Joint Pain (Left shoulder pain)
Physical Exam
-
General: No Apparent Distress
[2024-11-01] MEDS: BICITRA PO ×2 (20:08→20:23)
[2024-11-01] MEDS: TENORMIN 25 MG PO (22:10)
[2024-11-01] MEDS: ASPIR LOW (ENTERIC COATED) 81 MG PO (22:10)
[2024-11-01] MEDS: CRESTOR 40 MG PO (22:10)
[2024-11-01] MEDS: ULTRAM 50 MG PO (22:10)
[2024-11-01] MEDS: NEURONTIN 600 MG PO (22:10)
[2024-11-01 23:00] VITALS: BP 124/65
[2024-11-02] MEDS: HEPARIN SC ×3 (00:23→12:05)
[2024-11-02] MEDS: TYLENOL 650 MG PO ×2 (00:48→04:32)
[2024-11-02] MEDS: NSS 1000 IV (04:31)
[2024-11-02] MEDS: ULTRAM 50 MG PO (04:42)
[2024-11-02 07:20] VITALS: BP 141/75
[2024-11-02] MEDS: LIDOCAINE 4% PATCH 1 PATCH TOPICAL (07:59)
[2024-11-02] MEDS: REFRESH EYE DROPS (PF) 1 DROPS BOTH EYES (07:59)
[2024-11-02] MEDS: RESTASIS 0.05% OPHTHALMIC EMULSION 1 DROPS BOTH EYES (07:59)
[2024-11-02] MEDS: PROTONIX 40 MG PO (08:00)
[2024-11-02] MEDS: NORVASC 5 MG PO (08:00)
[2024-11-02] MEDS: INSPRA 25 MG PO (08:00)
[2024-11-02] MEDS: PEPCID 20 MG PO (08:00)
[2024-11-02] MEDS: PLAVIX 75 MG PO (08:00)
[2024-11-02] MEDS: ZETIA 10 MG PO (08:00)
[2024-11-02] MEDS: VITAMIN B1 100 MG PO (08:00)
[2024-11-02] MEDS: CLOBETASOL PROPIONATE 0.05% 1 APPLIC TOPICAL (08:02)
[2024-11-02] MEDS: DESENEX/MITRAZOL/ZEASORB 1 APPLIC TOPICAL (08:02)
[2024-11-02] MEDS: STERILE WATER FOR INJECTION IV (08:07)
[2024-11-02] MEDS: BICITRA PO (08:08)
[2024-11-02] MEDS: NSS IV (10:17)
[2024-11-02 10:49] LABS: Blood Urea Nitrogen 20 mg/dl (9-20); Calcium 8.3 mg/dl (8.4-10.2); Carbon Dioxide 25 mmol/L (22-30); Chloride 101 mmol/L (98-107); Estimated Creatinine Clearance 84 ml/min; Glucose 99 mg/dl (70-99); Magnesium 1.9 mg/dl (1.6-2.3); Phosphorus 2.2 mg/dl (2.5-4.5); Potassium 3.4 mmol/L (3.5-5.1); Sodium 134 mmol/L (135-145); eGFR > 60.00
[2024-11-02] MEDS: NEURONTIN 300 MG PO (12:04)
[2024-11-02] MEDS: NEUTRA-PHOS POWDER PACKET 250 MG PO (12:41)
[2024-11-02] MEDS: KCL 40 MEQ PO (12:41)
--- NOTE | 2024-11-02 14:14 | W.DCSUMMARY ---
Discharge Summary
Discharge Data
Date of Admission: 10/23/24
Date of Discharge: 11/02/24
-
Pending Results: No
Hospital Course
Gen-AAOx3, NAD
HEENT-NC, AT, anicteric, clear oral mm
Neck-supple
CV-reg, no M, +S1/S2
Lungs-clear B/L
Abd-soft, NT, ND
Musculoskeletal-no edema, left arm in sling
Skin-warm and dry
Neuro-grossly non-focal
Psych-calm, cooperative
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
humerus fracture. No orthopedic surgical intervention was indicated. His left arm was placed in a sling and patient was sent home. Pain gradually worsened and he also developed L hip pain with L knee swelling. Saw Dr. Doherty in the clinic, deemed to
have not sufficient fluid for joint aspiration. Knee is swollen, not red and not hot. He was brought to ED mostly due to left lower extremity pain and developing confusion. No evidence of knee infection, fractures, or dislocations upon evaluation.
His change in mentation possibly due to pain medications. His mentation resolved to baseline with no specific intervention. He was evaluated by physical medicine and rehab although they did not recommend need for acute rehab. Arrangements were
made for discharge to home. However prior to discharge he developed excessive diarrhea. He tested negative for C. difficile but positive for norovirus. He was treated supportively and electrolytes were repleted as needed. Of note, he was also
evaluated by psychiatry during hospitalization due to signs of depression. Psychiatry recommended outpatient follow-up which patient declined at this time. Outpatient follow-up with his primary care physician is recommended and outpatient
psychiatry services as well as needed. He will need outpatient ortho in 1-2 weeks. Home durable medical equipment has been arranged including hospital bed and bedside commode. Mr. Rose lives at home with his and they will be assisted by
other family members after hospital discharge.
Discharge Plan
-
Patient Disposition: Home (Routine Discharge)
Discharge Diagnosis/Procedures: Proximal left humerus fracture, norovirus
Condition: Fair
Diet: As tolerated and Low Cholesterol
Activity: As tolerated
Blood Work: LFT, CBC in 1 week with PCP
Other Services: PT
Activity Restrictions/Additional Instructions:
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
humerus fracture. No orthopedic surgical intervention was indicated. His left arm was placed in a sling and patient was sent home. Pain gradually worsened and he also developed L hip pain with L knee swelling. Saw Dr. Doherty in the clinic, deemed to
have not sufficient fluid for joint aspiration. Knee is swollen, not red and not hot. He was brought to ED mostly due to left lower extremity pain and developing confusion. No evidence of knee infection, fractures, or dislocations upon evaluation.
His change in mentation possibly due to pain medications. His mentation resolved to baseline with no specific intervention. He was evaluated by physical medicine and rehab although they did not recommend need for acute rehab. Arrangements were
made for discharge to home. However prior to discharge he developed excessive diarrhea. He tested negative for C. difficile but positive for norovirus. He was treated supportively and electrolytes were repleted as needed. Of note, he was also
evaluated by psychiatry during hospitalization due to signs of depression. Psychiatry recommended outpatient follow-up which patient declined at this time. Outpatient follow-up with his primary care physician is recommended and outpatient
psychiatry services as well as needed. He will need outpatient ortho in 1-2 weeks. Home durable medical equipment has been arranged including hospital bed and bedside commode. Mr. Rose lives at home with his and they will be assisted by
other family members after hospital discharge.
No shoulder range of motion and nonweightbearing of the left upper extremity
Referrals:
Beck Oropeza DO [Active] - in four to six weeks (chronic monocytosis)
Michelle Romo MD [Family Provider] -
Yadiel Chen MD [Active] - in one to two weeks
Prescriptions:
New
thiamine HCl (vitamin B1) 100 mg Tablet
100 mg PO BID Qty: 60 0RF
tramadol 50 mg Tablet
50 mg PO Q6HPRN PRN (Reason: moderate-severe pain) 3 Days Qty: 12 0RF
Continued
atenolol 25 MG tablet
25 mg PO HS
ezetimibe 10 MG tablet
10 mg PO DAILY
aspirin [Leni Low Dose Aspirin] 81 MG tablet,delayed release (DR/EC)
81 mg PO HS
gabapentin 300 MG capsule
600 mg PO HS
clopidogrel 75 MG tablet
75 mg PO DAILY Qty: 90 3RF
nitroglycerin 0.4 MG tablet, sublingual
0.4 mg sublingual [id number] PRN (Reason: chest pain/sob) Qty: 25 1RF
eplerenone 25 MG tablet
25 mg PO DAILY
allopurinol 100 MG tablet
100 mg PO DAILY
famotidine 20 MG tablet
20 mg PO DAILY
acetaminophen 500 MG tablet
1,000 mg PO BID
fluticasone propionate 1 SPRAY spray,suspension
2 spray intranasal HS
sodium citrate-citric acid 500-334 mg/5 mL Solution
15 ml PO BID
levomefolate--vitamins B12-B6 1 TAB tablet
1 tab PO BID
Macular Health Formula 1 EACH capsule
1 ea PO NOON
amlodipine 5 mg Tablet
5 mg PO DAILY
docusate sodium [Colace] 100 mg Capsule
100 mg PO DAILYPRN PRN (Reason: constipation)
gabapentin 300 mg Capsule
300 mg PO NOON
rosuvastatin 40 mg Tablet
40 mg PO HS
Systane (PF) 0.4-0.3 % Dropperette
1 drp BOTH EYES Q12H
cyclosporine 0.05 % Drops
1 drp BOTH EYES Q12H
Discontinued
hydrochlorothiazide 12.5 MG tablet
12.5 mg PO DAILY
Medical Marijuana
10 mg PO QID
diazepam [Valium] 5 mg tablet
5 mg PO TIDPRN PRN (Reason: spasm)
oxycodone 5 mg tablet
5 mg PO Q6HPRN PRN (Reason: severe Pain)
Discharge Orders:
Discharge Patient (As Directed); Ordered 11/02/24
Ordered By: Pritesh Naylor
Discharge Date and Time
Print Language: YORUBA
== END 2024-11-02 15:23 | disposition home or self-care (01) | DRG 562 ==
LOC: 4 WEST ACU 17:20
PROVIDERS: Nurse Practitioner; Nurse Practitioner Family; Nurse Practitioner Gerontology; Physician Assistant Medical; Physician Assistant Surgical; ADMITTING PHYSICIAN Internal Medicine; ATTENDING PHYSICIAN Internal Medicine; CONSULT PHYSICIAN Internal Medicine; CONSULT PHYSICIAN Orthopaedic Surgery Hand Surgery; CONSULT PHYSICIAN Psychiatry & Neurology Neurology; CONSULT PHYSICIAN Psychiatry & Neurology Psychiatry; CONSULT PHYSICIAN Student in an Organized Health Care Education/Training Program; EMERGENCY PHYSICIAN Emergency Medicine; FAMILY PHYSICIAN Family Medicine; OTHER PHYSICIAN Neurological Surgery
PROC: 0S9D3ZX Drainage of Left Knee Joint, Percutaneous Approach, Diagnostic (ICD-10-PCS; 2024-10-25)
DX: S42.292A Other displaced fracture of upper end of left humerus, initial encounter for closed fracture (principal); G93.41 Metabolic encephalopathy; E87.1 Hypo-osmolality and hyponatremia; A08.11 Acute gastroenteropathy due to Norwalk agent; M48.54XA Collapsed vertebra, not elsewhere classified, thoracic region, initial encounter for fracture; N17.9 Acute kidney failure, unspecified; J98.11 Atelectasis; Q04.8 Other specified congenital malformations of brain; M62.82 Rhabdomyolysis; M25.462 Effusion, left knee; K21.9 Gastro-esophageal reflux disease without esophagitis; N18.9 Chronic kidney disease, unspecified; I12.9 Hypertensive chronic kidney disease with stage 1 through stage 4 chronic kidney disease, or unspecified chronic kidney disease; E78.00 Pure hypercholesterolemia, unspecified; Z66 Do not resuscitate; R62.7 Adult failure to thrive; I25.10 Atherosclerotic heart disease of native coronary artery without angina pectoris; M25.562 Pain in left knee; Z87.891 Personal history of nicotine dependence; F32.A Depression, unspecified; M51.369 Other intervertebral disc degeneration, lumbar region without mention of lumbar back pain or lower extremity pain; Z79.02 Long term (current) use of antithrombotics/antiplatelets; Z86.0100 Personal history of colon polyps, unspecified; M11.262 Other chondrocalcinosis, left knee; M17.5 Other unilateral secondary osteoarthritis of knee; W19.XXXA Unspecified fall, initial encounter; Z11.52 Encounter for screening for COVID-19
CPT/HCPCS: 70450; 70553; 71045; 72131; 73030; 73502; 73560; 74176; 76700; 80048; 80053; 80076; 80143; 80306; 80307; 81003; 81015; 82140; 82248; 82550; 82570; 82805; 83010; 83605; 83615; 83735; 83935; 84100; 84145; 84300; 84443; 85025; 85027; 85610; 85730; 86618; 86704; 86705; 86706; 86708; 86709; 86803; 86880; 87015; 87040; 87070; 87075; 87086; 87205; 87207; 87324; 87340; 87449; 87502; 87798; 87811; 89051; 89060; 93971; 93975; 96360; 96361; 96374; 96375; 96376; 97116; 97163; 97167; 97530; 99284; 99285; A9575; J2358

== ENCOUNTER → 2024-12-31 08:38 | Outpatient (REF) | payer MEDICARE, OTHER, SELFPAY ==
[2024-12-31 09:39] LABS: % Basophils 0.3 % (0-2); % Eosinophils 6.5 % (0-6); % Immature Granulocytes 0.3 % (0-0.5); % Lymphocytes 25.7 % (20.5-51.1); % Monocytes 12.6 % (1.7-9.3); % Neutrophils 54.6 % (42.2-75.2); Absolute Eosinophils 0.4 10^3/uL (0-0.7); Absolute Lymphocytes 1.6 10^3/uL (1.2-3.4); Absolute Monocytes 0.8 10^3/uL (0.1-0.6); Absolute Neutrophils 3.5 10^3/uL (1.4-6.5); Hemoglobin 15.8 g/dL (13.0-18.0); Mean Corp Hgb Conc. 32.9 g/dL (33.0-37.0); Mean Corpuscular Hgb 31.3 pg (27.0-31.0); Mean Corpuscular Volume 95.2 fL (80.0-94.0); Nucleated Red Blood Cells % 0 % (-); Platelet Count 219 10^3/uL (130-400); Red Blood Cell Count 5.04 10^6/uL (4.70-6.10); Red Cell Dist. Width 13.8 % (11.5-14.5); White Blood Cell Count 6.4 10^3/uL (4.8-10.8)
[2024-12-31 11:05] LABS: Erythrocyte Sed Rate 4 mm/hour (0-20)
[2024-12-31 11:20] LABS: Protein/creatinine Ratio 0.2; Urine Protein 16 mg/dl
[2024-12-31 11:28] LABS: Microalbumin, Random Urine 6.4 mg/dl (0.6-1.7); Microalbumin/creatinine Ratio 98.3 mg/g
[2024-12-31 11:51] LABS: Glycohemoglobin (HgbA1c) 5.5 % (4.0-5.6)
[2024-12-31 12:21] LABS: ALT (SGPT) 69 U/L (0-50); AST (SGOT) 45 U/L (17-59); Albumin 4.7 g/dl (3.5-5.0); Alkaline Phosphatase 98 U/L (38-126); Blood Urea Nitrogen 37 mg/dl (9-20); Calcium 10.5 mg/dl (8.4-10.2); Carbon Dioxide 28 mmol/L (22-30); Chloride 98 mmol/L (98-107); Direct Bilirubin 0.2 mg/dl (0.0-0.4); Glucose 115 mg/dl (70-99); Potassium 4.4 mmol/L (3.5-5.1); Sodium 138 mmol/L (135-145); Total Bilirubin 0.8 mg/dl (0.2-1.3); Total Protein 7.8 g/dl (6.3-8.2); eGFR > 60.00
[2024-12-31 13:13] LABS: C-Reactive Protein < 5.00 mg/L (0.0-10.00)
[2024-12-31 13:41] LABS: Creatine Phosphokinase 147 U/L (55-170)
[2024-12-31 13:43] LABS: TSH Reflex To Free T4 2.75 uIU/ml (0.47-4.68)
[2024-12-31 14:19] LABS: Folate > 20.0 ng/ml (2.76-20); Vitamin B12 > 1000 pg/ml (239-931)
[2025-01-01 11:35] LABS: Lyme Antibody Screen, EIA Negative (Negative)
[2025-01-02 04:57] LABS: Vitamin D 1,25 Dihydroxy 27.7 pg/mL (19.9-79.3)
[2025-01-02 11:18] LABS: SSA 52 (Ro)(ENA) Ab, IgG 2 AU/mL (0-40); SSA 60 (Ro)(ENA) Ab, IgG 1 AU/mL (0-40); SSB (La)(ENA) Ab, IgG 1 AU/mL (0-40)
[2025-01-02 21:15] LABS: Alpha-Tocopherol 13.1 mg/L (5.5-18.0); Gamma-Tocopherol 0.6 mg/L (0.0-6.0)
== END ==
LOC: REG 08:38
PROVIDERS: ATTENDING PHYSICIAN Specialist; FAMILY PHYSICIAN Family Medicine; REFERRING PHYSICIAN Psychiatry & Neurology Neurology
DX: G62.9 Polyneuropathy, unspecified (principal); R79.9 Abnormal finding of blood chemistry, unspecified; Z01.89 Encounter for other specified special examinations; Z79.899 Other long term (current) drug therapy; R73.03 Prediabetes; I10 Essential (primary) hypertension; D72.821 Monocytosis (symptomatic); I15.8 Other secondary hypertension
CPT/HCPCS: 36415; 80069; 80076; 82043; 82306; 82550; 82570; 82607; 82652; 82746; 83036; 83735; 84155; 84156; 84165; 84207; 84425; 84443; 84446; 85025; 85652; 86140; 86235; 86618

== ENCOUNTER 2025-01-07 06:18 | Outpatient (RCR) | payer MEDICARE, OTHER, SELFPAY | END 2025-01-07 23:59 | disposition home or self-care (01) | LOC: RST 06:18 | PROVIDERS: ATTENDING PHYSICIAN Psychiatry & Neurology Neurology; FAMILY PHYSICIAN Family Medicine | DX: F07.81 Postconcussional syndrome (principal); R41.844 Frontal lobe and executive function deficit; R41.840 Attention and concentration deficit; R41.89 Other symptoms and signs involving cognitive functions and awareness; W00.0XXD Fall on same level due to ice and snow, subsequent encounter | CPT/HCPCS: 96125 ==

== ENCOUNTER 2025-02-09 10:00 | Outpatient (RCR) | payer MEDICARE, OTHER, SELFPAY | END 2025-02-09 23:59 | disposition home or self-care (01) | LOC: ROT 10:00 | PROVIDERS: ATTENDING PHYSICIAN Psychiatry & Neurology Neurology; FAMILY PHYSICIAN Family Medicine | DX: R41.844 Frontal lobe and executive function deficit (principal); F07.81 Postconcussional syndrome; R41.840 Attention and concentration deficit; R41.89 Other symptoms and signs involving cognitive functions and awareness; M25.512 Pain in left shoulder; Z73.6 Limitation of activities due to disability; R26.2 Difficulty in walking, not elsewhere classified; M62.81 Muscle weakness (generalized); M54.9 Dorsalgia, unspecified; R26.89 Other abnormalities of gait and mobility; W00.0XXD Fall on same level due to ice and snow, subsequent encounter | CPT/HCPCS: 97110; 97112; 97129; 97130; 97140; 97163; 97167; 97530; 97535; 97537 ==

== ENCOUNTER → 2025-02-20 11:33 | Outpatient (REF) | payer MEDICARE, OTHER, SELFPAY | LOC: HWRCS 11:33 | PROVIDERS: ATTENDING PHYSICIAN Internal Medicine; FAMILY PHYSICIAN Family Medicine | DX: I25.10 Atherosclerotic heart disease of native coronary artery without angina pectoris (principal); I25.810 Atherosclerosis of coronary artery bypass graft(s) without angina pectoris | CPT/HCPCS: 78452; 93017; A9500; J2785 ==

== ENCOUNTER → 2025-03-11 07:46 | Outpatient (REF) | payer MEDICARE, OTHER, SELFPAY ==
[2025-03-11 09:04] LABS: ALT (SGPT) 82 U/L (0-50); AST (SGOT) 48 U/L (17-59); Albumin 4.6 g/dl (3.5-5.0); Alkaline Phosphatase 84 U/L (38-126); Blood Urea Nitrogen 30 mg/dl (9-20); Calcium 9.7 mg/dl (8.4-10.2); Carbon Dioxide 28 mmol/L (22-30); Chloride 106 mmol/L (98-107); Direct Bilirubin 0.1 mg/dl (0.0-0.4); Glucose 111 mg/dl (70-99); Potassium 4.6 mmol/L (3.5-5.1); Sodium 141 mmol/L (135-145); Total Bilirubin 0.6 mg/dl (0.2-1.3); Total Protein 7.5 g/dl (6.3-8.2); eGFR > 60.00
[2025-03-11 09:08] LABS: Free T4 1.21 ng/dl (0.78-2.19)
[2025-03-11 09:22] LABS: Cortisol, Random 8.3 ug/dl; TSH 2.06 uIU/ml (0.47-4.68)
[2025-03-11 10:09] LABS: Glycohemoglobin (HgbA1c) 6.5 % (4.0-5.6)
[2025-03-11 19:14] LABS: Intact PTH 80.8 pg/ml (13.6-85.8)
[2025-03-12 23:58] LABS: Insulin, Random 16 uIU/mL
[2025-03-13 00:06] LABS: C-Peptide 3.8 ng/mL (0.5-3.3)
[2025-03-13 01:54] LABS: DHEA Sulfate 9 ug/dL (16-123)
[2025-03-13 17:33] LABS: Aldosterone, Serum 12.2 ng/dL; Aldosterone/Renin Activ Ratio 15.2 ratio (<=25.0); Renin Activity Results 0.8 ng/mL/hr
== END ==
LOC: REG 07:46
PROVIDERS: ATTENDING PHYSICIAN Family Medicine; REFERRING PHYSICIAN Nurse Practitioner Family
DX: R79.9 Abnormal finding of blood chemistry, unspecified (principal); Z01.89 Encounter for other specified special examinations; Z79.899 Other long term (current) drug therapy; E16.2 Hypoglycemia, unspecified
CPT/HCPCS: 36415; 80053; 82088; 82248; 82533; 82627; 83036; 83525; 83970; 84244; 84439; 84443; 84681

== ENCOUNTER 2025-03-12 11:48 | Outpatient (RCR) | payer MEDICARE, OTHER, SELFPAY | END 2025-03-12 23:59 | disposition home or self-care (01) | LOC: ROT 11:48 | PROVIDERS: ATTENDING PHYSICIAN Psychiatry & Neurology Neurology; FAMILY PHYSICIAN Family Medicine | DX: R41.844 Frontal lobe and executive function deficit (principal); R41.840 Attention and concentration deficit; F07.81 Postconcussional syndrome; R41.89 Other symptoms and signs involving cognitive functions and awareness; M25.512 Pain in left shoulder; Z73.6 Limitation of activities due to disability; R26.2 Difficulty in walking, not elsewhere classified; M62.81 Muscle weakness (generalized); M54.9 Dorsalgia, unspecified; R26.89 Other abnormalities of gait and mobility; W00.0XXD Fall on same level due to ice and snow, subsequent encounter | CPT/HCPCS: 97010; 97110; 97112; 97129; 97130; 97140; 97530; 97535; 97537 ==

== ENCOUNTER 2025-04-09 12:00 | Outpatient (RCR) | payer MEDICARE, OTHER, SELFPAY | END 2025-04-09 23:59 | disposition home or self-care (01) | LOC: ROT 12:00 | PROVIDERS: ATTENDING PHYSICIAN Psychiatry & Neurology Neurology; FAMILY PHYSICIAN Family Medicine | DX: R41.844 Frontal lobe and executive function deficit (principal); R41.840 Attention and concentration deficit; F07.81 Postconcussional syndrome; R41.89 Other symptoms and signs involving cognitive functions and awareness; M25.512 Pain in left shoulder; Z73.6 Limitation of activities due to disability; R26.2 Difficulty in walking, not elsewhere classified; M62.81 Muscle weakness (generalized); M54.9 Dorsalgia, unspecified; R26.89 Other abnormalities of gait and mobility; W00.0XXD Fall on same level due to ice and snow, subsequent encounter | CPT/HCPCS: 97010; 97110; 97112; 97129; 97130; 97140; 97530; 97535 ==

== ENCOUNTER → 2025-04-23 14:49 | Outpatient (REF) | payer MEDICARE, OTHER, SELFPAY | LOC: REG 14:49 | PROVIDERS: ATTENDING PHYSICIAN Nurse Practitioner Family; FAMILY PHYSICIAN Family Medicine | DX: E16.2 Hypoglycemia, unspecified (principal) | CPT/HCPCS: 36415; 83835 ==

== ENCOUNTER → 2025-05-01 14:17 | Outpatient (REF) | payer MEDICARE, OTHER, SELFPAY | LOC: RAD 14:17 | PROVIDERS: ATTENDING PHYSICIAN Nurse Practitioner Family; FAMILY PHYSICIAN Family Medicine | DX: E16.2 Hypoglycemia, unspecified (principal) | CPT/HCPCS: 74160; Q9967 ==

== ENCOUNTER 2025-05-14 13:56 | Outpatient (RCR) | payer MEDICARE, OTHER, SELFPAY | END 2025-05-14 23:59 | disposition home or self-care (01) | LOC: ROT 13:56 | PROVIDERS: ATTENDING PHYSICIAN Psychiatry & Neurology Neurology; FAMILY PHYSICIAN Family Medicine | DX: R41.844 Frontal lobe and executive function deficit (principal); R41.840 Attention and concentration deficit; F07.81 Postconcussional syndrome; R41.89 Other symptoms and signs involving cognitive functions and awareness; M25.512 Pain in left shoulder; Z73.6 Limitation of activities due to disability; R26.2 Difficulty in walking, not elsewhere classified; M62.81 Muscle weakness (generalized); M54.9 Dorsalgia, unspecified; R26.89 Other abnormalities of gait and mobility; W00.0XXD Fall on same level due to ice and snow, subsequent encounter | CPT/HCPCS: 97010; 97110; 97112; 97140 ==

== ENCOUNTER 2025-05-29 09:41 | Outpatient (RCR) | payer MEDICARE, OTHER, SELFPAY | END 2025-05-29 23:59 | disposition home or self-care (01) | LOC: ROT 09:41 | PROVIDERS: ATTENDING PHYSICIAN Psychiatry & Neurology Neurology; FAMILY PHYSICIAN Family Medicine | DX: R41.844 Frontal lobe and executive function deficit (principal); R41.840 Attention and concentration deficit; F07.81 Postconcussional syndrome; R41.89 Other symptoms and signs involving cognitive functions and awareness; M25.512 Pain in left shoulder; Z73.6 Limitation of activities due to disability; R26.2 Difficulty in walking, not elsewhere classified; M62.81 Muscle weakness (generalized); M54.9 Dorsalgia, unspecified; R26.89 Other abnormalities of gait and mobility; W00.0XXD Fall on same level due to ice and snow, subsequent encounter | CPT/HCPCS: 97010; 97110; 97112; 97140 ==

== ENCOUNTER → 2025-06-03 13:37 | Outpatient (REF) | payer MEDICARE, OTHER, SELFPAY | LOC: HWRAD 13:37 | PROVIDERS: ATTENDING PHYSICIAN Family Medicine; REFERRING PHYSICIAN Orthopaedic Surgery | DX: M25.512 Pain in left shoulder (principal); M25.522 Pain in left elbow | CPT/HCPCS: 73030; 73080; 73090 ==

== ENCOUNTER → 2025-07-28 08:18 | Outpatient (REF) | payer MEDICARE, OTHER, SELFPAY ==
[2025-07-28 09:08] LABS: Hematocrit 47.1 % (39.0-52.0); Hemoglobin 15.7 g/dL (13.0-18.0); Mean Corp Hgb Conc. 33.3 g/dL (33.0-37.0); Mean Corpuscular Volume 96.3 fL (80.0-94.0); Nucleated Red Blood Cells % 0 % (-); Platelet Count 183 10^3/uL (130-400); Red Cell Dist. Width 12.4 % (11.5-14.5)
[2025-07-28 09:42] LABS: Glycohemoglobin (HgbA1c) 6.1 % (4.0-5.6)
[2025-07-28 10:10] LABS: ALT (SGPT) 93 U/L (0-50); AST (SGOT) 59 U/L (17-59); Albumin 4.2 g/dl (3.5-5.0); Alkaline Phosphatase 87 U/L (38-126); Blood Urea Nitrogen 25 mg/dl (9-20); Calcium 9.8 mg/dl (8.4-10.2); Carbon Dioxide 25 mmol/L (22-30); Chloride 106 mmol/L (98-107); Glucose 108 mg/dl (70-99); HDL Cholesterol 51 mg/dl; LDL Cholesterol, Calculated 57 mg/dl; Potassium 5.0 mmol/L (3.5-5.1); Sodium 139 mmol/L (135-145); Total Protein 7.4 g/dl (6.3-8.2); Very Low Density Lipoprotein 17 mg/dl (0-30); eGFR > 60.00
[2025-07-28 10:30] LABS: Vitamin D, 25-OH*** 49.4 ng/mL (30-80)
== END ==
LOC: REG 08:18
PROVIDERS: ATTENDING PHYSICIAN Family Medicine
DX: R73.03 Prediabetes (principal); N40.1 Benign prostatic hyperplasia with lower urinary tract symptoms; N18.31 Chronic kidney disease, stage 3a; I25.10 Atherosclerotic heart disease of native coronary artery without angina pectoris; E78.5 Hyperlipidemia, unspecified; I10 Essential (primary) hypertension; Z79.899 Other long term (current) drug therapy; R79.9 Abnormal finding of blood chemistry, unspecified; Z87.81 Personal history of (healed) traumatic fracture
CPT/HCPCS: 36415; 80053; 80061; 82306; 83036; 83970; 84153; 84154; 84443; 85025

== ENCOUNTER 2025-08-12 13:16 | Outpatient (RCR) | payer MEDICARE, OTHER, SELFPAY | END 2025-08-13 06:43 | disposition home or self-care (01) | LOC: RPT 13:16 | PROVIDERS: ATTENDING PHYSICIAN Physician Assistant; FAMILY PHYSICIAN Family Medicine | DX: S52.123D Displaced fracture of head of unspecified radius, subsequent encounter for closed fracture with routine healing (principal); M19.012 Primary osteoarthritis, left shoulder; Z73.6 Limitation of activities due to disability; M62.81 Muscle weakness (generalized); W19.XXXD Unspecified fall, subsequent encounter | CPT/HCPCS: 97110; 97162 ==